=== PATIENT | male | born 1955 | race Caucasian/White ===

== ENCOUNTER → 2018-04-12 08:14 | Outpatient (CLI) | payer BC, SELFPAY ==
--- NOTE | 2018-04-12 08:25 | RAD_ITS ---
PROCEDURE: Fluoroscopic guided Hip Injection DATE: April 12, 2018. INDICATION: Male, 63 years old. Chronic hip pain. PHYSICIAN: Julius Cadet M.D. MEDICATIONS: 40 mg of Depomedrol, 3 cc of 1% lidocaine. 2% lidocaine administered subcutaneously for local anesthesia. ACCESS SITE: Right hip. NEEDLE: 22-gauge spinal needle. FLUOROSCOPY TIME (if supplied): (0:28) minutes/seconds FINDINGS: The risks, benefits, and alternatives to the procedure were explained to the patient. The specific risks of bleeding, infection, and neurovascular injury were detailed and accepted. Witnessed informed consent was obtained. A 22-gauge spinal needle was positioned under radiographic fluoroscopic localization. Approximately 2 cc of Isovue-300 instilled for localization purposes. Medication was then injected. The patient tolerated the procedure well without any immediate complications. The patient was placed supine with head elevated and returned to the floor in stable condition. RAD/Inj/Asp Sudhakar Jt Should/Hip/Knee IMPRESSION: 1. Successful fluoroscopic guided hip injection. Electronically Signed: Julius Cadet MD at 9:43 EST Tel [phone], Service support ,
--- OUTSIDE RECORDS SUMMARY | 2018-06-14 02:54 | XMS RPT_ITS ---
:1955 Author Organization OHIP Care Team Providers Name Role Phone Brandon Bradley Attending Unavailable Brandon Bradley Referring Unavailable Jose Back Primary Care Unavailable Lauren Peacock Consulting Unavailable Lauren PEACOCK (PA-C) Attending Unavailable Lauren PEACOCK (PA-C) Referring Unavailable Lauren PEACOCK (PA-C) Attending Unavailable Lauren PEACOCK (PA-C) Referring Unavailable Lauren PEACOCK (PA-C) Attending Unavailable Lauren PEACOCK (PA-C) Referring Unavailable VETOVIALEXIA, ANGELA (PA) Attending Unavailable Lauren PEACOCK (PA-C) Referring Unavailable VETOVIALEXIA, ANGELA (PA) Referring Unavailable RICCHETTI, DESTINY T Attending Unavailable VETOVITZ, ANGELA (PA) Referring Unavailable RICCHETTI, DESTINY T Referring Unavailable RICCHETTI, DESTINY T Referring Unavailable Lauren PEACOCK (PA-C) Attending Unavailable Lauren PEACOCK (PA-C) Referring Unavailable RICCHETTI, DESTINY T Referring Unavailable RICCHETTI, DESTINY T Attending Unavailable VETOVITZ, ANGELA (PA) Referring Unavailable RICCHETTI, DESTINY T Referring Unavailable JEWEL GASPAR (PT) Attending Unavailable Lauren PEACOCK (PA-C) Referring Unavailable JEWEL GASPAR (PT) Attending Unavailable Lauren PEACOCK (PA-C) Referring Unavailable JEWEL GASPAR (PT) Attending Unavailable Lauren PEACOCK (PA-C) Referring Unavailable JEWEL GASPAR (PT) Attending Unavailable Lauren PEACOCK (PA-C) Referring Unavailable JEWEL GASPAR (PT) Attending Unavailable Lauren PEACOCK (PA-C) Referring Unavailable DESTINY ALAN T Referring Unavailable DAYANNA DESTINY T Attending Unavailable ANGELA GEORGES (PA) Referring Unavailable Lauren PEACOCK (PA-C) Attending Unavailable Lauren PEACOCK (PA-C) Attending Unavailable Lauren PEACOCK (PA-C) Attending Unavailable Lauren PEACOCK (PA-C) Referring Unavailable Lauren PEACOCK (PA-C) Referring Unavailable Lauren PEACOCK (PA-C) Referring Unavailable BRANDON BRADLEY Attending Unavailable JOSE BACK Referring Unavailable PROBLEMS PROBLEMS DATE TYPE CONDITION / CODE ATTENDING STATUS SOURCE 03/28/2018 Active Low back pain / NA Active [facility] M54.5(ICD-10) [place] Repository 09/01/2017 Active Unspecified injury NA Active [facility] of right shoulder [place] and upper arm, Repository sequela / S49.91XS(ICD-10) 08/22/2017 Active Pyogenic NA Active [facility] arthritis, [place] unspecified / Repository M00.9(ICD-10) 08/22/2017 Active Unknown / Lauren PEACOCK Active [facility] UNK(Unknown) ROSE MARIE (PA-C) [place] Repository 08/19/2017 Active Abnormal findings NA Active [facility] on diagnostic [place] imaging of other Repository specified body structures / R93.8(ICD-10) 08/02/2017 Active Pain in right NA Active [facility] shoulder / [place] M25.511(ICD-10) Repository PROCEDURES PROCEDURES No Procedure Records FoundRESULTS RESULTS INJ/ASP SUDHAKAR JT Observed: 04/12/2018 Status: F Source: [place] SHOULD/HIP/KNEE 7:20 AM [facility] [place] REPOSITORY [facility] Imaging Services [address] [place] [address] Inj/Asp Sudhakar Jt Should/Hip/Knee MR#: [id number] Acct: [id number] Name: GUANACOJUMA Rep #: [id number] : 1955 M 63 From: Julius Cadet MD PCP: Jose Back MD Status: REG CLI Study: Inj/Asp Sudhakar Jt Should/Hip/Knee Date of Exam: 04/12/18 Exam# [id number] Ordering Dr: Brandon Bradley DO PROCEDURE: Fluoroscopic guided Hip Injection DATE: April 12, 2018. INDICATION: Male, 63 years old. Chronic hip pain. PHYSICIAN: Julius Cadet M.D. MEDICATIONS: 40 mg of Depomedrol, 3 cc of 1% lidocaine. 2% lidocaine administered subcutaneously for local anesthesia. ACCESS SITE: Right hip. NEEDLE: 22-gauge spinal needle. FLUOROSCOPY TIME (if supplied): (0:28) minutes/seconds FINDINGS: The risks, benefits, and alternatives to the procedure were explained to the patient. The specific risks of bleeding, infection, and neurovascular injury were detailed and accepted. Witnessed informed consent was obtained. A 22-gauge spinal needle was positioned under radiographic fluoroscopic localization. Approximately 2 cc of Isovue-300 instilled for localization purposes. Medication was then injected. The patient tolerated the procedure well without any immediate complications. The patient was placed supine with head elevated and returned to the floor in stable condition. RAD/Inj/Asp Sudhakar Jt Should/Hip/Knee IMPRESSION: 1. Successful fluoroscopic guided hip injection. Electronically Signed: Julius Cadet MD at 9:43 EST Tel [phone], Service support , CC: Brandon Bradley DO; Jose Back MD Staff Accountant: Signed PROGRESS Observed: 03/31/2018 Status: COMPLETED Source: [place] 12:33 PM [facility] REPOSITORY O ID: [id number] Author: Brandon Bradley V Service: (none) Author Type: Physician Type: Progress Notes Filed: 03/31/2018 1:38 PM Note Text: Jose Back MD [address] [facility] [address] Mr. Blanc is a 63 year old male that presents today complaining of hip problems bilaterally, but acutely on the left side for the last 4 days. He claims that there is no specific incident that brought on this pain. The pain is described as intermittent located in the buttocks and outer aspect of the hip. Patient states that his pain level is a number 6 on a scale of 1-10 Denies low back pain. He states that the pain came on rather suddenly, with no specific provocation, while standing at work. He states that he does not leave it was work related because there was no injury. He has been taking a Medrol Dosepak and hydrocodone for pain relief and states that he has seen some improvement overall. He continues to have pain that originates in the backside of the left hip and buttock and seems to radiate to the front of the hip. He complains of chronic right hip pain that he's noticed for several years, states that it is not really changed that much recently. The right hip pain is worse with prolonged standing. ALLERGIES: Patient has no known allergies. MEDICATIONS: Current Outpatient Prescriptions: cyclobenzaprine (FLEXERIL) 10 mg tablet Take 1 tablet by mouth three times daily as needed. HYDROcodone-acetaminophen (NORCO) 5-325 mg per tablet Take 1 tablet by mouth every 6 hours as needed for Pain for up to 7 days. mupirocin (BACTROBAN) 2 % ointment Apply 1 application to affected area three times daily. Location: left foot lesion (Patient not taking: Reported on 03/28/2018 ) ibuprofen (ADVIL) 200 mg tablet Take 200 mg by mouth every 6 hours as needed. No current facility-administered medications for this visit. MEDICAL HISTORY: PAST MEDICAL HISTORY Diagnosis Date - Diverticulosis of colon (without mention of hemorrhage) Diverticulosis - Heartburn - Hydrocele - Internal hemorrhoids with other complication - Other chronic sinusitis - Unspecified hemorrhoids without mention of complication Hemorrhoids SURGICAL HISTORY: PAST SURGICAL HISTORY Procedure Laterality Date - COLONOSCOP W/ OR W/O [facility] SPEC 06/06/2003 Colonoscopy - COLONOSCOP W/ OR W/O [facility] SPEC 09/29/09 - COLONOSCOP W/ OR W/O [facility] SPEC 06/19/2015 Colonoscopy - FIX FLEX TENDON,FING/HAND,SECOND,EA right - HEMORRHOIDECTOMY, EXTNL; COMP - PAST SURGICAL HISTORY OF partial amputation tip right middle toe - PAST SURGICAL HISTORY OF 08/2005 hydrocele left testicle removed also - REPAIR ING HERNIA,5+Y/O,REDUCIBL Hernia repair, inguinal RIGHT ORTHOPEDIC SPECIFIC PROBLEMS: right knee catching since hip pain started FAMILY HISTORY: FAMILY HISTORY Problem Relation Age of Onset - Coronary Artery Disease Mother PR, CABG - other (transient ischemic attack) Mother disoriented transiently - Heart Father 80 stent, CHF SOCIAL HISTORY: Social History Marital status: Spouse name: Justine Years of education: 14 Number of children: 4 Occupational History Occupation Employer Comment [employer] Social History Main Topics Smoking status: Never Smoker Smokeless tobacco: Never Used Alcohol use: Yes Comment: 12 pack beer on weekends Drug use: No Sexual activity: Yes Partners with: Female PHYSICAL ASSESSMENT: The Pt walks with a normal gait B/l LE have Nl Alignment The Left hip reveals no hip flexion contracture, 0-100 degrees of flexion, Internal Rotation to 20 degrees in flexion and external rotation to 45 degrees in flexion. Abduction to 45 degrees and adduction to 20 degrees. There is pain with palpation over the posterior aspect of the greater trochanter and the gluteal region. The Right hip reveals a no hip flexion contracture, 0-100 degrees of flexion, Internal Rotation to 15 degrees in flexion and external rotation to 40 degrees in flexion. Abduction to 40 degrees and adduction to 10 degrees. There is no pain with palpation over the ischial tuberosity or the greater trochanter. Right Knee Reveals No Effusion. 0-135 degrees of motion. No Abnormal Anterior, Posterior, Varus or Valgus Laxity. No Medial or Lateral Joint Line Tenderness. No pain with Direct Palpation over the Distal Medial or Lateral Femoral Condyles. Negative Pati's Test. No pain with Patellar compression. The Left Knee Reveals No Effusion. 0-135 degrees of motion. No Abnormal Anterior, Posterior, Varus or Valgus Laxity. No Medial or Lateral Joint Line Tenderness. No pain with Direct Palpation over the Distal Medial or Lateral Femoral Condyles. Negative Pati's Test. There is no pain with patellar compression. EHL 5/5 DF 5/5 PF 5/5 DP Pulses 2/2 PT Pulses 2/2 RADIOGRAPH: Right side: Marked narrowing of the RIGHT hip joint. ?This has progressed since previous study. ?There is marginal spurring around the inferior medial aspect of the hip joint No fractures or dislocations are seen. ? The bone density appears well preserved. Left side: The joint spaces are well-preserved. ?. No fractures or dislocations are seen. ?The bone density appears well preserved ASSESSMENT: right hip OA left posterior hip pain- suspect piriformis strain PLAN: reviewed handout with exercises for hip Physical exam reviewed there are no apparent changes since last visit. Risks, benefits, alternatives and personnel discussed with patient who consents to proceed. Patient wished to proceed. 40 mg kenalog with 2cc, 1% lidocaine and 2cc .5% marcaine was injected. Injection was carried out under sterile conditions through a POSTERIOR site into the gluteus medius tendon insertion. Patient had no immediate complications and tolerated the procedure well. recheck in 1 week if remains symptomatic Discussed referral for fluoroscopic guided injection to right hip should symptoms worsen. Brandon Bradley DO PROGRESS Observed: 03/31/2018 Status: COMPLETED Source: [place] 11:[address] [facility] REPOSITORY HNO ID: [id number] Author: Lauren Quesada Ma Service: (none) Author Type: (none) Type: Progress Notes Filed: 03/31/2018 1:38 PM Note Text: AMB ROOMING INTAKE FLOWSHEET DATA Risk Screening Do you have concerns about personal safety or safety in the home?: No Pain Pain Score: 6/10 Pain Location: Other: See Comment (bilateral hips) Description: Sharp, Dull Duration Amount of Time: 4 Duration Units: Days Intervention: Medication CNOV Observed: 03/31/2018 Status: COMPLETED Source: [place] 11:[address] [facility] REPOSITORY Office Visit (UC) JUMA BLANC ([id number]) 1955 M Date Time Provider Department 03/31/18 11:20 AM BRANDON BRADLEY During your visit today, we recorded the following information about you: Lauren Quesada Ma 03/31/2018 1:38 PM Signed AMB ROOMING INTAKE FLOWSHEET DATA Risk Screening Do you have concerns about personal safety or safety in the home?: No Pain Pain Score: 6/10 Pain Location: Other: See Comment (bilateral hips) Description: Sharp, Dull Duration Amount of Time: 4 Duration Units: Days Intervention: Medication Brandon Bradley, DO 03/31/2018 1:38 PM Signed Jose Back MD [address] [facility] [address] Mr. Blanc is a 63 year old male that presents today complaining of hip problems bilaterally, but acutely on the left side for the last 4 days. He claims that there is no specific incident that brought on this pain. The pain is described as intermittent located in the buttocks and outer aspect of the hip. Patient states that his pain level is a number 6 on a scale of 1-10 Denies low back pain. He states that the pain came on rather suddenly, with no specific provocation, while standing at work. He states that he does not leave it was work related because there was no injury. He has been taking a Medrol Dosepak and hydrocodone for pain relief and states that he has seen some improvement overall. He continues to have pain that originates in the backside of the left hip and buttock and seems to radiate to the front of the hip. He complains of chronic right hip pain that he's noticed for several years, states that it is not really changed that much recently. The right hip pain is worse with prolonged standing. ALLERGIES: Patient has no known allergies. MEDICATIONS: Current Outpatient Prescriptions: cyclobenzaprine (FLEXERIL) 10 mg tablet Take 1 tablet by mouth three times daily as needed. HYDROcodone-acetaminophen (NORCO) 5-325 mg per tablet Take 1 tablet by mouth every 6 hours as needed for Pain for up to 7 days. mupirocin (BACTROBAN) 2 % ointment Apply 1 application to affected area three times daily. Location: left foot lesion (Patient not taking: Reported on 03/28/2018 ) ibuprofen (ADVIL) 200 mg tablet Take 200 mg by mouth every 6 hours as needed. No current facility-administered medications for this visit. MEDICAL HISTORY: PAST MEDICAL HISTORY Diagnosis Date - Diverticulosis of colon (without mention of hemorrhage) Diverticulosis - Heartburn - Hydrocele - Internal hemorrhoids with other complication - Other chronic sinusitis - Unspecified hemorrhoids without mention of complication Hemorrhoids SURGICAL HISTORY: PAST SURGICAL HISTORY Procedure Laterality Date - COLONOSCOP W/ OR W/O [facility] SPEC 06/06/2003 Colonoscopy - COLONOSCOP W/ OR W/O [facility] SPEC 09/29/09 - COLONOSCOP W/ OR W/O [facility] SPEC 06/19/2015 Colonoscopy - FIX FLEX TENDON,FING/HAND,SECOND,EA right - HEMORRHOIDECTOMY, EXTNL; COMP - PAST SURGICAL HISTORY OF partial amputation tip right middle toe - PAST SURGICAL HISTORY OF 08/2005 hydrocele left testicle removed also - REPAIR ING HERNIA,5+Y/O,REDUCIBL Hernia repair, inguinal RIGHT ORTHOPEDIC SPECIFIC PROBLEMS: right knee catching since hip pain started FAMILY HISTORY: FAMILY HISTORY Problem Relation Age of Onset - Coronary Artery Disease Mother PR, CABG - other (transient ischemic attack) Mother disoriented transiently - Heart Father 80 stent, CHF SOCIAL HISTORY: Social History Marital status: Spouse name: Justine Years of education: 14 Number of children: 4 Occupational History Occupation Employer Comment [employer] Social History Main Topics Smoking status: Never Smoker Smokeless tobacco: Never Used Alcohol use: Yes Comment: 12 pack beer on weekends Drug use: No Sexual activity: Yes Partners with: Female PHYSICAL ASSESSMENT: The Pt walks with a normal gait B/l LE have Nl Alignment The Left hip reveals no hip flexion contracture, 0-100 degrees of flexion, Internal Rotation to 20 degrees in flexion and external rotation to 45 degrees in flexion. Abduction to 45 degrees and adduction to 20 degrees. There is pain with palpation over the posterior aspect of the greater trochanter and the gluteal region. The Right hip reveals a no hip flexion contracture, 0-100 degrees of flexion, Internal Rotation to 15 degrees in flexion and external rotation to 40 degrees in flexion. Abduction to 40 degrees and adduction to 10 degrees. There is no pain with palpation over the ischial tuberosity or the greater trochanter. Right Knee Reveals No Effusion. 0-135 degrees of motion. No Abnormal Anterior, Posterior, Varus or Valgus Laxity. No Medial or Lateral Joint Line Tenderness. No pain with Direct Palpation over the Distal Medial or Lateral Femoral Condyles. Negative Pati's Test. No pain with Patellar compression. The Left Knee Reveals No Effusion. 0-135 degrees of motion. No Abnormal Anterior, Posterior, Varus or Valgus Laxity. No Medial or Lateral Joint Line Tenderness. No pain with Direct Palpation over the Distal Medial or Lateral Femoral Condyles. Negative Pati's Test. There is no pain with patellar compression. EHL 5/5 DF 5/5 PF 5/5 DP Pulses 2/2 PT Pulses 2/2 RADIOGRAPH: Right side: Marked narrowing of the RIGHT hip joint. ?This has progressed since previous study. ?There is marginal spurring around the inferior medial aspect of the hip joint No fractures or dislocations are seen. ? The bone density appears well preserved. Left side: The joint spaces are well-preserved. ?. No fractures or dislocations are seen. ?The bone density appears well preserved ASSESSMENT: right hip OA left posterior hip pain- suspect piriformis strain PLAN: reviewed handout with exercises for hip Physical exam reviewed there are no apparent changes since last visit. Risks, benefits, alternatives and personnel discussed with patient who consents to proceed. Patient wished to proceed. 40 mg kenalog with 2cc, 1% lidocaine and 2cc .5% marcaine was injected. Injection was carried out under sterile conditions through a POSTERIOR site into the gluteus medius tendon insertion. Patient had no immediate complications and tolerated the procedure well. recheck in 1 week if remains symptomatic Discussed referral for fluoroscopic guided injection to right hip should symptoms worsen. Brandon Bradley DO Referring Provider: JOSE BACK [[id number]] Allergies As of Date: 03/31/2018 (No Known Allergies) Date Reviewed: 03/31/2018 Reviewed by: Lauren Quesada Ma - Fully Assessed Reason for Visit: New Patient [172] Cmt: Bilateral hip pain Primary Visit Diagnosis:Arthritis of right hip [M16.11] Other Visit Diagnosis:Sprain, gluteus medius, left, initial encounter [S76.012A] Order(s):[] triamcinolone acetonide 40 mg injection (KENALOG 40)Disp: Rfl: Prescriptions as of 03/31/2018 Sig: CYCLOBENZAPRINE 10 MG TABLET Take 1 tablet by mouth three * HYDROCODONE 5 MG-ACETAMINOPHE* Take 1 tablet by mouth every * MUPIROCIN 2 % TOPICAL OINTMENT Apply 1 application to affect* Patient not taking: Reported on 03/28/2018 IBUPROFEN 200 MG TABLET Take 200 mg by mouth every 6 * Problem List As Of Date 03/31/2018 Noted Resolved HYDROCELE [603] INVALID FOR* Medial epicondylitis of elbow [M77.00] INVALID FOR*12/02/2016 Pain in joint, site unspecified [M25.50] INVALID FOR*12/02/2016 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 HEMORRHOIDS NOS [K64.9] More... DIVERTICULOSIS OF COLON W/O BLEED [K57.30] More... Benign prostatic hyperplasia without lower urin*INVALID FOR* Right groin pain [R10.31] INVALID FOR*12/02/2016 Night sweats [R61] INVALID FOR* More... Shoulder pain [M25.519] INVALID FOR*12/02/2016 More... Left cervical radiculopathy [M54.12] INVALID FOR* Muscle spasm of left shoulder area [M62.838] INVALID FOR*12/02/2016 Personal history of colonic polyps [Z86.010] INVALID FOR*06/19/2015 Chronic left-sided low back pain with left-side*INVALID FOR* Acromioclavicular joint injury, right, sequela *INVALID FOR* Prescriptions ordered this encounter Disp Refills Start End TRIAMCINOLONE ACETONIDE 40 MG/ML PAOLA* 03/31/2018 03/31/2018 Route: INTRAMUSCULA Encounter Status:Closed by BRANDON BRADLEY DO, V on 03/31/18 CBC AND DIFFERENTIAL Collected: 03/28/2018 Status: F Source: [place] 3:35 PM [facility] REPOSITORY TYPE CODE TESTS RESULT OUT OF REFERENCE UNITS RANGE LAB WBC 3.70-11.00 k/uL WBC 9.14 LAB RBC 4.20-6.00 m/uL RBC 5.34 LAB HGB 13.0-17.0 g/dL Hemoglobin 16.5 LAB HCT 39.0-51.0 % Hematocrit 49.3 LAB MCV 80.0-100.0 fL MCV 92.3 LAB MCH 26.0-34.0 pG MCH 30.9 LAB MCHC 30.5-36.0 g/dL MCHC 33.5 LAB RDWCV 11.5-15.0 % RDW-CV 12.6 LAB PLTCT 150-400 k/uL Platelet Count 152 LAB MPV 9.0-12.7 fL MPV 11.2 LAB ANEUT % Neut% 85.2 LAB AANEUT 1.45-7.50 k/uL Abs Neut High 7.79 LAB ALYMP % Lymph% 10.3 LAB AALYMP 1.00-4.00 k/uL Low Abs Lymph 0.94 LAB AMONO % [place]% 4.3 LAB AAMONO <0.87 k/uL Abs [place] 0.39 LAB AEOS % Eosin% 0.1 LAB AAEOS <0.46 k/uL Abs Eosin <0.03 LAB ABASO % Baso% 0.1 LAB AABASO <0.11 k/uL Abs Baso <0.03 LAB AUNRBC 0 /100 WBC NRBCs 0.0 LAB ABNRBC <0.01 k/uL Absolute nRBC <0.01 LAB DTYP DTYPE Auto Diff Performed By: #### CBCDIF, WSR, BMP, CRP #### [facility] [address], [place] [address] SED RATE WESTERGREN Collected: 03/28/2018 Status: F Source: [place] 3:[address] [facility] REPOSITORY TYPE CODE TESTS RESULT OUT OF REFERENCE UNITS RANGE LAB WSR 0-15 mm/hr Sed Rate Westergren 2 Performed By: #### CBCDIF, WSR, BMP, CRP #### [facility] [address], [place] [address] BASIC METABOLIC PANL Collected: 03/28/2018 Status: F Source: [place] 3:[address] [facility] REPOSITORY TYPE CODE TESTS RESULT OUT OF REFERENCE UNITS RANGE LAB GLU 74-99 mg/dL Glucose 89 Result Comment: The [place] [employer] (ADA) provides guidance for cutoff values for fasting glucose and random glucose. The ADA defines fasting as no caloric intake for at least 8 hours. Fas ting plasma glucose results between 100 to 125 mg/dL indicate increased risk for diabetes (prediabetes). Fasting plasma glucose results greater than or equal to 126 mg/dL meet the criteria for diagnosis of diabetes. In the absence of unequivocal hyperglycemia, results should be confirmed by repeat testing. In a patient with classic symptoms of hyperglycemia or hyperglycemic crisis, random plasma glucose results greater than or equal to 200 mg/dL meet the criteria for diagnosis of diabetes. Reference: Standards of Medical Care in Diabetes 2016, [place] [employer]. Diabetes Care. 2016.39(Suppl 1). LAB BUN 9-24 mg/dL BUN 15 LAB CRET 0.73-1.22 mg/dL Creatinine 0.78 LAB NA 136-144 mmol/L Sodium 137 LAB K 3.7-5.1 mmol/L Potassium 4.2 LAB CL 97-105 mmol/L Chloride 100 LAB CO2 22-30 mmol/L CO2 24 LAB AGAP 9-18 mmol/L Anion Gap 13 LAB CA 8.5-10.2 mg/dL Calcium, Total 9.5 LAB GFRAA eGFR- Amer. >60 LAB GFRNAA . eGFR-All Other Races >60 Result Comment: eGFR (Estimated GFR) Units of measure: mL/min/1.73 meters squared eGFR is derived from the reexpressed MDRD Study equation using the following parameters: serum creatinine, age, gender and race. The creatinine assay has been calibrated to be traceable to IDMS. An eGFR <60 mL/min/1.73m2 for >3 months is consistent with chronic kidney disease. Refer to KDOQI guidelines for clinical interpretation. In patients with unstable renal function, e.g. those with acute kidney injury, the eGFR may not accurately reflect actual GFR. Performed By: #### CBCDIF, WSR, BMP, CRP #### [facility] [address] [place], [place] [address] C-REACTIVE PROTEIN Collected: 03/28/2018 Status: F Source: [place] 3:[address] [facility] REPOSITORY TYPE CODE TESTS RESULT OUT OF REFERENCE UNITS RANGE LAB CRP <0.9 mg/dL C-Reactive 0.1 Protein Performed By: #### CBCDIF, WSR, BMP, CRP #### [facility] [address] [place], [place] [address] XR HIP [place] 5V PEL+ Observed: 03/28/2018 Status: F Source: [place] AP/LAT EA HIP 3:[address] [facility] REPOSITORY * * *Final Report* * * DATE OF EXAM: Mar 28 2018 3:29PM WOX [id number] - XR HIP [place] 5V PEL+ AP/LAT EA HIP / PROCEDURE REASON: Acute bilateral low back pain without sciatica * * * * Physician Interpretation * * * * Bilateral hips: HISTORY: Indication:Bilateral hip pain TECHNIQUE: Views obtained include: XR HIP [place] 5V PEL+ AP/LAT EA HIP Comparison: 03/30/2016 RESULT: Findings: Right side: Marked narrowing of the RIGHT hip joint. This has progressed since previous study. There is marginal spurring around the inferior medial aspect of the hip joint No fractures or dislocations are seen. The bone density appears well preserved. Left side: The joint spaces are well-preserved. . No fractures or dislocations are seen. The bone density appears well preserved. IMPRESSION: Findings as discussed under Results portion of report. Staff Accountant: PSCB Transcribe Date/Time: Mar 28 2018 3:54P Dictated by : SRI TRACY DO This examination was interpreted and the report reviewed and electronically signed by: SRI TRACY DO on Mar 28 2018 3:55PM EST [id number] PROGRESS Observed: 03/28/2018 Status: COMPLETED Source: [place] 3:[address] [facility] REPOSITORY HNO ID: [id number] Author: Nata HendersonRt) Shawna Barakat Service: (none) Author Type: Change Room Attendant Type: Progress Notes Filed: 03/28/2018 3:29 PM Note Text: Radiology Service Progress Note PATIENT NAME: Juma Blanc DATE OF SERVICE: March 28, 2018 TIME: 3:17 PM PATIENT IDENTITY VERIFICATION COMPLETED USING TWO (2) METHODS: Patient confirmed name verbally and Date of . PATIENT GENDER DATA: Male PATIENT RELEVANT IMPLANT DATA REVIEWED: Not Applicable RADIOLOGY DEPARTMENT: General X-ray: Exam(s) Completed: Pelvis X-Ray: Pelvis with Hip Bilateral PERIPHERAL IV DATA: Not applicable SIGNED BY: RT Felton March 28, 2018 3:17 PM PROGRESS Observed: 03/28/2018 Status: COMPLETED Source: [place] 2:[address] [facility] REPOSITORY HNO ID: [id number] Author: Lauren Peacock Service: (none) Author Type: Physician Tree Surgeon Helper Type: Progress Notes Filed: 03/28/2018 4:35 PM Note Text: 63 year old male with c/o left hip pain. 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 Pain came on 2 days alter. Sudden pain at work. [place] nauseous. Sweaty. Pain in left gluteal. Unable to sleep last night. Sharp pain. Couldn't lay down. Nauseated But hasn't vomited. Advil 600mg gels twice a day. Medrol didn't make much difference on right. Still feel like not fully resolved. HISTORIES FAMILY HISTORY Problem Relation Age of Onset - Coronary Artery Disease Mother PR, CABG - other (transient ischemic attack) Mother disoriented transiently - Heart Father 80 stent, CHF PAST MEDICAL HISTORY Diagnosis Date - Diverticulosis of colon (without mention of hemorrhage) Diverticulosis - Heartburn - Hydrocele - Internal hemorrhoids with other complication - Other chronic sinusitis - Unspecified hemorrhoids without mention of complication Hemorrhoids PAST SURGICAL HISTORY Procedure Laterality Date - COLONOSCOP W/ OR W/O [facility] SPEC 06/06/2003 Colonoscopy - COLONOSCOP W/ OR W/O [facility] SPEC 09/29/09 - COLONOSCOP W/ OR W/O [facility] SPEC 06/19/2015 Colonoscopy - FIX FLEX TENDON,FING/HAND,SECOND,EA right - HEMORRHOIDECTOMY, EXTNL; COMP - PAST SURGICAL HISTORY OF partial amputation tip right middle toe - PAST SURGICAL HISTORY OF 08/2005 hydrocele left testicle removed also - REPAIR ING HERNIA,5+Y/O,REDUCIBL Hernia repair, inguinal RIGHT Social History Marital status: Spouse name: Justine Years of education: 14 Number of children: 4 Occupational History Occupation Employer Comment [employer] Social History Main Topics Smoking status: Never Smoker Smokeless tobacco: Never Used Alcohol use: Yes Comment: 12 pack beer on weekends Drug use: No Sexual activity: Yes Partners with: Female ACTIVE PROBLEM LIST Hydrocele Malignant Neoplasm of Spermatic Cord (Hcc) Unspecified Hemorrhoids Without Mention of Complication Diverticulosis of Colon (Without Mention of Hemorrhage) Benign Prostatic Hyperplasia Without Lower Urinary Tract Symptoms Night Sweats Left Cervical Radiculopathy Chronic Left-Sided Low Back Pain With Left-Sided Sciatica Acromioclavicular Joint Injury, Right, Sequela Current Outpatient Prescriptions: meloxicam (MOBIC) 15 mg tablet TAKE 1 TABLET BY MOUTH ONCE DAILY. WITH FOOD. Disp: 90 tablet Rfl: 0 ibuprofen (ADVIL) 200 mg tablet Take 200 mg by mouth every 6 hours as needed. Disp: Rfl: mupirocin (BACTROBAN) 2 % ointment Apply 1 application to affected area three times daily. Location: left foot lesion (Patient not taking: Reported on 03/28/2018 ) Disp: 15 g Rfl: 1 No current facility-administered medications for this visit. PROSTATE CANCER SCREENING DISCUSSION due on 05/20/2013 EXAM: BP 132/88 Pulse 76 Temp 36.9 ?C (98.4 ?F) (Tympanic) Resp 16 Wt 93 kg (205 lb) BMI 26.68 kg/m? Pleasant adult man in no acute distress. Alert and oriented all spheres. Normal affect and cognition. Speech normal. No deficits to learning or comprehension. Skin warm, dry, pink to lips and nailbeds. Normal turgor. Respirations regular and unlabored. Back without scoliosis. Tender spasm in left lumbar. Gait remains off slightly. Has slight persistent limp on right leg. Extrem: no clubbing, cyanosis, edema. Extremities are warm and pink with prompt capillary refill. SLR bilateral to 90 degrees with out pain. Femoral stretch negative bilaterally.No pain with internal external rotation hips. Motor is full to resistance hip flexion, abduction, adduction, knee extension/ flexion, plantar flexion/ dorsiflexion, great toe extension OMT: myofascial release to TTPs , muscle energy techniques with some improvement but intermittent persistent pain. ASSESSMENT/PLAN: 1. Acute bilateral low back pain without sciatica - ICD9: 724.2, 338.19, ICD10: M54.5 Symptoms consistent with herniated disc. Feels pain severe. asking for something stronger for pain. Unable to rest. Non-narcotic meds not helping. Advised limited use only with narcotics and warned of side effects. - Bedrest for 2-3 days - Ice for localized tenderness - Xrays- see orders - Patient given instructions intermittent rest and back care exercise program - XR LUMBAR GENERAL 3V AP/LAT/L5-S1 - CBC + DIFF - SED RATE WESTERGREN - C-REACTIVE PROTEIN (CRP) - BASIC METABOLIC PNL - XR HIP BILAT 5V PEL/AP/LAT EACH HIP - HYDROCODONE 5 MG-ACETAMINOPHEN 325 MG TABLET ROMERO SpearsOV Observed: 03/28/2018 Status: COMPLETED Source: [place] 2:[address] [facility] REPOSITORY [facility] JUMA BALNC ([id number]) 1955 M Date Time Provider Department 03/28/18 2:00 PM Lauren PEACOCK) ERIKA During your visit today, we recorded the following information about you: Temperature Pulse Respiration Blood pressure 98.4 degrees 76/minute 16/minute 132/88 Weight 93 kg M Rose Marie Peacock PA-C 03/28/2018 4:35 PM Signed 63 year old male with c/o left hip pain. 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 Pain came on 2 days alter. Sudden pain at work. [place] nauseous. Sweaty. Pain in left gluteal. Unable to sleep last night. Sharp pain. Couldn't lay down. Nauseated But hasn't vomited. Advil 600mg gels twice a day. Medrol didn't make much difference on right. Still feel like not fully resolved. HISTORIES FAMILY HISTORY Problem Relation Age of Onset - Coronary Artery Disease Mother PR, CABG - other (transient ischemic attack) Mother disoriented transiently - Heart Father 80 stent, CHF PAST MEDICAL HISTORY Diagnosis Date - Diverticulosis of colon (without mention of hemorrhage) Diverticulosis - Heartburn - Hydrocele - Internal hemorrhoids with other complication - Other chronic sinusitis - Unspecified hemorrhoids without mention of complication Hemorrhoids PAST SURGICAL HISTORY Procedure Laterality Date - COLONOSCOP W/ OR W/O [facility] SPEC 06/06/2003 Colonoscopy - COLONOSCOP W/ OR W/O [facility] SPEC 09/29/09 - COLONOSCOP W/ OR W/O [facility] SPEC 06/19/2015 Colonoscopy - FIX FLEX TENDON,FING/HAND,SECOND,EA right - HEMORRHOIDECTOMY, EXTNL; COMP - PAST SURGICAL HISTORY OF partial amputation tip right middle toe - PAST SURGICAL HISTORY OF 08/2005 hydrocele left testicle removed also - REPAIR ING HERNIA,5+Y/O,REDUCIBL Hernia repair, inguinal RIGHT Social History Marital status: Spouse name: Justine Years of education: 14 Number of children: 4 Occupational History Occupation Employer Comment [employer] Social History Main Topics Smoking status: Never Smoker Smokeless tobacco: Never Used Alcohol use: Yes Comment: 12 pack beer on weekends Drug use: No Sexual activity: Yes Partners with: Female ACTIVE PROBLEM LIST Hydrocele Malignant Neoplasm of Spermatic Cord (Hcc) Unspecified Hemorrhoids Without Mention of Complication Diverticulosis of Colon (Without Mention of Hemorrhage) Benign Prostatic Hyperplasia Without Lower Urinary Tract Symptoms Night Sweats Left Cervical Radiculopathy Chronic Left-Sided Low Back Pain With Left-Sided Sciatica Acromioclavicular Joint Injury, Right, Sequela Current Outpatient Prescriptions: meloxicam (MOBIC) 15 mg tablet TAKE 1 TABLET BY MOUTH ONCE DAILY. WITH FOOD. Disp: 90 tablet Rfl: 0 ibuprofen (ADVIL) 200 mg tablet Take 200 mg by mouth every 6 hours as needed. Disp: Rfl: mupirocin (BACTROBAN) 2 % ointment Apply 1 application to affected area three times daily. Location: left foot lesion (Patient not taking: Reported on 03/28/2018 ) Disp: 15 g Rfl: 1 No current facility-administered medications for this visit. PROSTATE CANCER SCREENING DISCUSSION due on 05/20/2013 EXAM: BP 132/88 Pulse 76 Temp 36.9 ?C (98.4 ?F) (Tympanic) Resp 16 Wt 93 kg (205 lb) BMI 26.68 kg/m? Pleasant adult man in no acute distress. Alert and oriented all spheres. Normal affect and cognition. Speech normal. No deficits to learning or comprehension. Skin warm, dry, pink to lips and nailbeds. Normal turgor. Respirations regular and unlabored. Back without scoliosis. Tender spasm in left lumbar. Gait remains off slightly. Has slight persistent limp on right leg. Extrem: no clubbing, cyanosis, edema. Extremities are warm and pink with prompt capillary refill. SLR bilateral to 90 degrees with out pain. Femoral stretch negative bilaterally.No pain with internal external rotation hips. Motor is full to resistance hip flexion, abduction, adduction, knee extension/ flexion, plantar flexion/ dorsiflexion, great toe extension OMT: myofascial release to TTPs , muscle energy techniques with some improvement but intermittent persistent pain. ASSESSMENT/PLAN: 1. Acute bilateral low back pain without sciatica - ICD9: 724.2, 338.19, ICD10: M54.5 Symptoms consistent with herniated disc. Feels pain severe. asking for something stronger for pain. Unable to rest. Non-narcotic meds not helping. Advised limited use only with narcotics and warned of side effects. - Bedrest for 2-3 days - Ice for localized tenderness - Xrays- see orders - Patient given instructions intermittent rest and back care exercise program - XR LUMBAR GENERAL 3V AP/LAT/L5-S1 - CBC + DIFF - SED RATE WESTERGREN - C-REACTIVE PROTEIN (CRP) - BASIC METABOLIC PNL - XR HIP BILAT 5V PEL/AP/LAT EACH HIP - HYDROCODONE 5 MG-ACETAMINOPHEN 325 MG TABLET M Rose Marie Peacock PA-C Referring Provider: SELF [200] Allergies As of Date: 03/28/2018 (No Known Allergies) Date Reviewed: 03/28/2018 Reviewed by: June Kay LPN - Fully Assessed Reason for Visit: Left Hip Pain [1555] Cmt: started yesterday while at work, no known injury Primary Visit Diagnosis:Acute bilateral low back pain without sciatica [M54.5] Order(s):XR LUMBAR GENERAL 3V AP/LAT/L5-S1 [0560600] Order #: [id number] FUTURE CBC + DIFF [SQCBCDIF] Order #: [id number] FUTURE cyclobenzaprine (FLEXERIL) 10 mg tabletTake 1 tablet by mouth three times daily as needed.Disp: 30 tabletRfl: 0 SED RATE WESTERGREN [SQWSR] Order #: [id number] FUTURE C-REACTIVE PROTEIN (CRP) [SQCRP] Order #: [id number] FUTURE BASIC METABOLIC PNL [SQBMP] Order #: [id number] FUTURE XR HIP BILAT 5V PEL/AP/LAT EACH HIP [[id number]] Order #: [id number] FUTURE HYDROcodone-acetaminophen (NORCO) 5-325 mg per tabletTake 1 tablet by mouth every 6 hours as needed for Pain for up to 7 days.Disp: 28 tabletRfl: 0 Prescriptions as of 03/28/2018 Sig: IBUPROFEN 200 MG TABLET Take 200 mg by mouth every 6 * CYCLOBENZAPRINE 10 MG TABLET Take 1 tablet by mouth three * HYDROCODONE 5 MG-ACETAMINOPHE* Take 1 tablet by mouth every * MUPIROCIN 2 % TOPICAL OINTMENT Apply 1 application to affect* Patient not taking: Reported on 03/28/2018 Problem List As Of Date 03/28/2018 Noted Resolved HYDROCELE [603] INVALID FOR* Medial epicondylitis of elbow [M77.00] INVALID FOR*12/02/2016 Pain in joint, site unspecified [M25.50] INVALID FOR*12/02/2016 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 HEMORRHOIDS NOS [K64.9] More... DIVERTICULOSIS OF COLON W/O BLEED [K57.30] More... Benign prostatic hyperplasia without lower urin*INVALID FOR* Right groin pain [R10.31] INVALID FOR*12/02/2016 Night sweats [R61] INVALID FOR* More... Shoulder pain [M25.519] INVALID FOR*12/02/2016 More... Left cervical radiculopathy [M54.12] INVALID FOR* Muscle spasm of left shoulder area [M62.838] INVALID FOR*12/02/2016 Personal history of colonic polyps [Z86.010] INVALID FOR*06/19/2015 Chronic left-sided low back pain with left-side*INVALID FOR* Acromioclavicular joint injury, right, sequela *INVALID FOR* Prescriptions ordered this encounter Disp Refills Start End CYCLOBENZAPRINE 10 MG TABLET 30 t* 0 03/28/2018 Route: ORAL Sig: Take 1 tablet by mouth three times daily as needed. HYDROCODONE 5 MG-ACETAMINOPHEN 325 M* 28 t* 0 03/28/2018 04/04/2018 Class: Print RX Route: ORAL Sig: Take 1 tablet by mouth every 6 hours as needed for Pain for up to 7 days. Medications Discontinued During This Encounter meloxicam (MOBIC) 15 mg tablet 90 t* 0 02/08/2018 03/28/2018 Sig: TAKE 1 TABLET BY MOUTH ONCE DAILY. WITH FOOD. Disc: Reason for discontinue is not on file. Letter Text [facility] [address], [place] [address] Juma Blanc [address] [address] Clinic #: [id number] 03/28/2018 To Whom it may concern, Juma Blanc was examined here for an acute medical condition. Please excuse him from work missed 03/27-04/02/18. May return without restrictions 04/03/18 Thank you, Milvia Peacock PA-C Encounter Status:Closed by Lauren PEACOCK PA-C on 03/28/18 PROGRESS Observed: 03/07/2018 Status: COMPLETED Source: [place] 10:39 AM [facility] REPOSITORY O ID: [id number] Author: Lauren Mcghee (Romero) Ayush Service: (none) Author Type: Physician Tree Surgeon Helper Type: Progress Notes Filed: 03/07/2018 12:47 PM Note Text: 63 year old male with c/o 1. Area on top of left foot over last month: 3/4in wide a most, dark red/ purple color. Very tender at first. Used Neosporin. Used a needle an poked with drainage of fair amount bloody to watery. No streaks. No fever or chills. Thinks may have been a spider in shoe but didn't see one. Thought over tightened shoe laces. No pain currently. Still purplish color with some mild fluid under skin. Worried about toxins from spider bite. 2. Right hip and groin pain over last 3-4 radiating medial thigh to knee. Causing to limp. Went to chiropractor who jerked on foot. No difference. Took Advil 600mg twice a day with some improvement. HISTORIES FAMILY HISTORY Problem Relation Age of Onset - Coronary Artery Disease Mother PR, CABG - other (transient ischemic attack) Mother disoriented transiently - Heart Father 80 stent, CHF PAST MEDICAL HISTORY Diagnosis Date - Diverticulosis of colon (without mention of hemorrhage) Diverticulosis - Heartburn - Hydrocele - Internal hemorrhoids with other complication - Other chronic sinusitis - Unspecified hemorrhoids without mention of complication Hemorrhoids PAST SURGICAL HISTORY Procedure Laterality Date - COLONOSCOP W/ OR W/O [facility] SPEC 06/06/2003 Colonoscopy - COLONOSCOP W/ OR W/O [facility] SPEC 09/29/09 - COLONOSCOP W/ OR W/O [facility] SPEC 06/19/2015 Colonoscopy - FIX FLEX TENDON,FING/HAND,SECOND,EA right - HEMORRHOIDECTOMY, EXTNL; COMP - PAST SURGICAL HISTORY OF partial amputation tip right middle toe - PAST SURGICAL HISTORY OF 08/2005 hydrocele left testicle removed also - REPAIR ING HERNIA,5+Y/O,REDUCIBL Hernia repair, inguinal RIGHT Social History Marital status: Spouse name: Justine Years of education: 14 Number of children: 4 Occupational History Occupation Employer Comment [employer] Social History Main Topics Smoking status: Never Smoker Smokeless tobacco: Never Used Alcohol use: Yes Comment: 12 pack beer on weekends Drug use: No Sexual activity: Yes Partners with: Female ACTIVE PROBLEM LIST Hydrocele Malignant Neoplasm of Spermatic Cord (Hcc) Unspecified Hemorrhoids Without Mention of Complication Diverticulosis of Colon (Without Mention of Hemorrhage) Benign Prostatic Hyperplasia Without Lower Urinary Tract Symptoms Night Sweats Left Cervical Radiculopathy Chronic Left-Sided Low Back Pain With Left-Sided Sciatica Acromioclavicular Joint Injury, Right, Sequela Current Outpatient Prescriptions: ibuprofen (ADVIL) 200 mg tablet Take 200 mg by mouth every 6 hours as needed. Disp: Rfl: meloxicam (MOBIC) 15 mg tablet TAKE 1 TABLET BY MOUTH ONCE DAILY. WITH FOOD. Disp: 90 tablet Rfl: 0 mupirocin (BACTROBAN) 2 % ointment Apply 1 application to affected area three times daily. Location: left foot lesion Disp: 15 g Rfl: 1 No current facility-administered medications for this visit. PROSTATE CANCER SCREENING DISCUSSION due on 05/20/2013 EXAM: BP 106/80 (BP Site: Left Arm, BP Position: Sitting, BP Cuff Size: Large Adult) Pulse (!) 58 Temp 36.4 ?C (97.5 ?F) (Tympanic) Resp 16 Wt 93.4 kg (206 lb) BMI 26.81 kg/m? Pleasant adult man in no acute distress. Alert and oriented all spheres. Normal affect and cognition. Speech normal. No deficits to learning or comprehension. Skin warm, dry, pink to lips and nailbeds. Normal turgor. Respirations regular and unlabored. Chest CTA. HRRR without murmur or gallop. Right lumbar with paravertebral spasm. restricted right SIJ. Pain with forward flexion back. Walking with assymetric gait, rotating on right. Extrem: no clubbing, cyanosis, edema. Extremities are warm and pink with prompt capillary refill. Right dorsal foot with dime sized purplish area with loose skin as though there were a blister that has drained. No surrounding erythema. No streaks. HVLA: muscle energy, stretching, HVLA to right SIJ with adjustment and improvement. Still stiff somewhat with gait but says much better overall. ASSESSMENT/PLAN: 1. Right groin pain - ICD9: 789.09, ICD10: R10.31 (primary diagnosis) Suspect r/t somatic dysfunction, overuse. Ice/ moist heat, lineaments, OTC analgesics as needed,. Stretching and posture reviewed. - METHYLPREDNISOLONE 4 MG TABLETS IN A DOSE PACK 2. Somatic dysfunction of sacroiliac joint - ICD9: 739.4, ICD10: M99.04 - F/U prn OMT - METHYLPREDNISOLONE 4 MG TABLETS IN A DOSE PACK 3. Left foot infection - ICD9: 686.9, ICD10: L08.9 - Bactroban TID until clear. F/u prn if worse. F/u prn Lauren Peacock PA-C CNOV Observed: 03/07/2018 Status: COMPLETED Source: [place] 10:[address] [facility] REPOSITORY [facility] JUMA BLANC ([id number]) 1955 M Date Time Provider Department 03/07/18 10:20 AM Lauren PEACOCK) ERIKA During your visit today, we recorded the following information about you: Temperature Pulse Respiration Blood pressure 97.5 degrees 58/minute 16/minute 106/80 Weight 93.4 kg Lauren Peacock PA-C 03/07/2018 12:47 PM Signed 63 year old male with c/o 1. Area on top of left foot over last month: 3/4in wide a most, dark red/ purple color. Very tender at first. Used Neosporin. Used a needle an poked with drainage of fair amount bloody to watery. No streaks. No fever or chills. Thinks may have been a spider in shoe but didn't see one. Thought over tightened shoe laces. No pain currently. Still purplish color with some mild fluid under skin. Worried about toxins from spider bite. 2. Right hip and groin pain over last 3-4 radiating medial thigh to knee. Causing to limp. Went to chiropractor who jerked on foot. No difference. Took Advil 600mg twice a day with some improvement. HISTORIES FAMILY HISTORY Problem Relation Age of Onset - Coronary Artery Disease Mother PR, CABG - other (transient ischemic attack) Mother disoriented transiently - Heart Father 80 stent, CHF PAST MEDICAL HISTORY Diagnosis Date - Diverticulosis of colon (without mention of hemorrhage) Diverticulosis - Heartburn - Hydrocele - Internal hemorrhoids with other complication - Other chronic sinusitis - Unspecified hemorrhoids without mention of complication Hemorrhoids PAST SURGICAL HISTORY Procedure Laterality Date - COLONOSCOP W/ OR W/O [facility] SPEC 06/06/2003 Colonoscopy - COLONOSCOP W/ OR W/O [facility] SPEC 09/29/09 - COLONOSCOP W/ OR W/O [facility] SPEC 06/19/2015 Colonoscopy - FIX FLEX TENDON,FING/HAND,SECOND,EA right - HEMORRHOIDECTOMY, EXTNL; COMP - PAST SURGICAL HISTORY OF partial amputation tip right middle toe - PAST SURGICAL HISTORY OF 08/2005 hydrocele left testicle removed also - REPAIR ING HERNIA,5+Y/O,REDUCIBL Hernia repair, inguinal RIGHT Social History Marital status: Spouse name: Justine Years of education: 14 Number of children: 4 Occupational History Occupation Employer Comment [employer] Social History Main Topics Smoking status: Never Smoker Smokeless tobacco: Never Used Alcohol use: Yes Comment: 12 pack beer on weekends Drug use: No Sexual activity: Yes Partners with: Female ACTIVE PROBLEM LIST Hydrocele Malignant Neoplasm of Spermatic Cord (Hcc) Unspecified Hemorrhoids Without Mention of Complication Diverticulosis of Colon (Without Mention of Hemorrhage) Benign Prostatic Hyperplasia Without Lower Urinary Tract Symptoms Night Sweats Left Cervical Radiculopathy Chronic Left-Sided Low Back Pain With Left-Sided Sciatica Acromioclavicular Joint Injury, Right, Sequela Current Outpatient Prescriptions: ibuprofen (ADVIL) 200 mg tablet Take 200 mg by mouth every 6 hours as needed. Disp: Rfl: meloxicam (MOBIC) 15 mg tablet TAKE 1 TABLET BY MOUTH ONCE DAILY. WITH FOOD. Disp: 90 tablet Rfl: 0 mupirocin (BACTROBAN) 2 % ointment Apply 1 application to affected area three times daily. Location: left foot lesion Disp: 15 g Rfl: 1 No current facility-administered medications for this visit. PROSTATE CANCER SCREENING DISCUSSION due on 05/20/2013 EXAM: BP 106/80 (BP Site: Left Arm, BP Position: Sitting, BP Cuff Size: Large Adult) Pulse (!) 58 Temp 36.4 ?C (97.5 ?F) (Tympanic) Resp 16 Wt 93.4 kg (206 lb) BMI 26.81 kg/m? Pleasant adult man in no acute distress. Alert and oriented all spheres. Normal affect and cognition. Speech normal. No deficits to learning or comprehension. Skin warm, dry, pink to lips and nailbeds. Normal turgor. Respirations regular and unlabored. Chest CTA. HRRR without murmur or gallop. Right lumbar with paravertebral spasm. restricted right SIJ. Pain with forward flexion back. Walking with assymetric gait, rotating on right. Extrem: no clubbing, cyanosis, edema. Extremities are warm and pink with prompt capillary refill. Right dorsal foot with dime sized purplish area with loose skin as though there were a blister that has drained. No surrounding erythema. No streaks. HVLA: muscle energy, stretching, HVLA to right SIJ with adjustment and improvement. Still stiff somewhat with gait but says much better overall. ASSESSMENT/PLAN: 1. Right groin pain - ICD9: 789.09, ICD10: R10.31 (primary diagnosis) Suspect r/t somatic dysfunction, overuse. Ice/ moist heat, lineaments, OTC analgesics as needed,. Stretching and posture reviewed. - METHYLPREDNISOLONE 4 MG TABLETS IN A DOSE PACK 2. Somatic dysfunction of sacroiliac joint - ICD9: 739.4, ICD10: M99.04 - F/U prn OMT - METHYLPREDNISOLONE 4 MG TABLETS IN A DOSE PACK 3. Left foot infection - ICD9: 686.9, ICD10: L08.9 - Bactroban TID until clear. F/u prn if worse. F/u prn Lauren Peacock PA-C Rose Marie Peacock PA-C 03/07/2018 11:15 AM Addendum Try to avoid activities which increase pain. Position for comfort with pillows under or between legs to decrease stress on low back and hip when in bed. Sleeping conditions are very important to back health. You need to sleep on a surface that supports your hips in a neutral position. Sagging in the hip or shoulder areas will contribute to muscle irritation. Using a low footstool when sitting upright may also reduce low back pain. Try to arrange seating to allow support in the area where your back curves, especially while watching TV or playing video games. Sitting or standing with a hunched posture will cause or aggravate muscle pain in the neck and low back. Ice or moist heat or both may help with pain and stiffness. Apply for 10-15min as needed. Gokul Little spine handout given and reviewed. Muscle energy techniques as shown 30 sec stretch 3-4 reps twice a day. As pain improves may move to additional postural and back strengthening exercises. See internet copy for medial gluteal stretch. Referring Provider: SELF [200] Allergies As of Date: 03/07/2018 (No Known Allergies) Date Reviewed: 03/07/2018 Reviewed by: June Kay LPN - Fully Assessed Reason for Visit: Right Hip Pain [1554] Cmt: down buttock AND right leg X 3 wks Pain (foot) [760] Cmt: sore area on top of left foot, area draining X 3-4 wks Primary Visit Diagnosis:Right groin pain [R10.31] Other Visit Diagnoses:Somatic dysfunction of sacroiliac joint [M99.04] Left foot infection [L08.9] Order(s):mupirocin (BACTROBAN) 2 % ointmentApply 1 application to affected area three times daily. Location: left foot lesionDisp: 15 gRfl: 1 methylPREDNISolone (MEDROL, CORA,) 4 mg Dose-PackFollow dosing instructions, take with food.Disp: 1 PackageRfl: 0 Prescriptions as of 03/07/2018 Sig: IBUPROFEN 200 MG TABLET Take 200 mg by mouth every 6 * MELOXICAM 15 MG TABLET TAKE 1 TABLET BY MOUTH ONCE D* METHYLPREDNISOLONE 4 MG TABLE* Follow dosing instructions, t* MUPIROCIN 2 % TOPICAL OINTMENT Apply 1 application to affect* Problem List As Of Date 03/07/2018 Noted Resolved HYDROCELE [603] INVALID FOR* Medial epicondylitis of elbow [M77.00] INVALID FOR*12/02/2016 Pain in joint, site unspecified [M25.50] INVALID FOR*12/02/2016 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 HEMORRHOIDS NOS [K64.9] More... DIVERTICULOSIS OF COLON W/O BLEED [K57.30] More... Benign prostatic hyperplasia without lower urin*INVALID FOR* Right groin pain [R10.31] INVALID FOR*12/02/2016 Night sweats [R61] INVALID FOR* More... Shoulder pain [M25.519] INVALID FOR*12/02/2016 More... Left cervical radiculopathy [M54.12] INVALID FOR* Muscle spasm of left shoulder area [M62.838] INVALID FOR*12/02/2016 Personal history of colonic polyps [Z86.010] INVALID FOR*06/19/2015 Chronic left-sided low back pain with left-side*INVALID FOR* Acromioclavicular joint injury, right, sequela *INVALID FOR* Other instructions from your clinician: Try to avoid activities which increase pain. Position for comfort with pillows under or between legs to decrease stress on low back and hip when in bed. Sleeping conditions are very important to back health. You need to sleep on a surface that supports your hips in a neutral position. Sagging in the hip or shoulder areas will contribute to muscle irritation. Using a low footstool when sitting upright may also reduce low back pain. Try to arrange seating to allow support in the area where your back curves, especially while watching TV or playing video games. Sitting or standing with a hunched posture will cause or aggravate muscle pain in the neck and low back. Ice or moist heat or both may help with pain and stiffness. Apply for 10-15min as needed. Gokul Little spine handout given and reviewed. Muscle energy techniques as shown 30 sec stretch 3-4 reps twice a day. As pain improves may move to additional postural and back strengthening exercises. See internet copy for medial gluteal stretch. Prescriptions ordered this encounter Disp Refills Start End MUPIROCIN 2 % TOPICAL OINTMENT 15 g 1 03/07/2018 Route: TOPICAL Sig: Apply 1 application to affected area three times daily. Location: left foot lesion METHYLPREDNISOLONE 4 MG TABLETS IN A* 1 Pa* 0 03/07/2018 03/13/2018 Sig: Follow dosing instructions, take with food. Encounter Status:Closed by Lauren PEACOCK PA-C on 03/07/18 PROGRESS Observed: 10/31/2017 Status: COMPLETED Source: [place] 11:13 AM [facility] REPOSITORY HNO ID: [id number] Author: Lauren Mcghee (Romero) Ayush Service: (none) Author Type: Physician Tree Surgeon Helper Type: Progress Notes Filed: 10/31/2017 11:25 AM Note Text: BP 118/80 Pulse 72 Temp 36.7 ?C (98.1 ?F) (Tympanic) Resp 16 Wt 94.3 kg (208 lb) BMI 27.07 kg/m? 62 year old male with c/o here to review return to work. Patient fears he will not be able to handle physical stress of position. Has now been off work for 3 months. Continuing home exercises as instructed in PT. Feels getting back to normal. Very distressed by crepitation in shoulder. HISTORIES FAMILY HISTORY Problem Relation Age of Onset - Coronary Artery Disease Mother PR, CABG - other (transient ischemic attack) Mother disoriented transiently - Heart Father 80 stent, CHF PAST MEDICAL HISTORY Diagnosis Date - Diverticulosis of colon (without mention of hemorrhage) Diverticulosis - Heartburn - Hydrocele - Internal hemorrhoids with other complication - Other chronic sinusitis - Unspecified hemorrhoids without mention of complication Hemorrhoids PAST SURGICAL HISTORY Procedure Laterality Date - COLONOSCOP W/ OR W/O [facility] SPEC 06/06/2003 Colonoscopy - COLONOSCOP W/ OR W/O [facility] SPEC 09/29/09 - COLONOSCOP W/ OR W/O [facility] SPEC 06/19/2015 Colonoscopy - FIX FLEX TENDON,FING/HAND,SECOND,EA right - HEMORRHOIDECTOMY, EXTNL; COMP - PAST SURGICAL HISTORY OF partial amputation tip right middle toe - PAST SURGICAL HISTORY OF 08/2005 hydrocele left testicle removed also - REPAIR ING HERNIA,5+Y/O,REDUCIBL Hernia repair, inguinal RIGHT Social History Marital status: Spouse name: Justine Years of education: 14 Number of children: 4 Occupational History Occupation Employer Comment [employer] Social History Main Topics Smoking status: Never Smoker Smokeless tobacco: Never Used Alcohol use: Yes Comment: 12 pack beer on weekends Drug use: No Sexual activity: Yes Partners with: Female ACTIVE PROBLEM LIST Hydrocele Malignant Neoplasm of Spermatic Cord (Hcc) Unspecified Hemorrhoids Without Mention of Complication Diverticulosis of Colon (Without Mention of Hemorrhage) Benign Prostatic Hyperplasia Without Lower Urinary Tract Symptoms Night Sweats Left Cervical Radiculopathy Chronic Left-Sided Low Back Pain With Left-Sided Sciatica Acromioclavicular Joint Injury, Right, Sequela Current Outpatient Prescriptions: ibuprofen (ADVIL) 200 mg tablet Take 200 mg by mouth every 6 hours as needed. Disp: Rfl: meloxicam (MOBIC) 15 mg tablet TAKE 1 TABLET BY MOUTH ONCE DAILY. WITH FOOD. Disp: 90 tablet Rfl: 0 No current facility-administered medications for this visit. INFLUENZA(1) due on 11/19/2017 EXAM: BP 118/80 Pulse 72 Temp 36.7 ?C (98.1 ?F) (Tympanic) Resp 16 Wt 94.3 kg (208 lb) BMI 27.07 kg/m? Pleasant older adult male in no acute distress. Alert and oriented all spheres. Normal affect and cognition. Speech normal. No deficits to learning or comprehension. Skin warm, dry, pink to lips and nailbeds. Normal turgor. Respirations regular and unlabored. Right shoulder with moderate creptus on circumduction. 0-160-170 degrees on right, nearly equal to left which is full. Hawkin's negative. Drop arm, empty can, scratch, liftoff all normal. No pain with resistance to lateral rotation. Extrem: no clubbing, cyanosis, edema. Extremities are warm and pink with prompt capillary refill. ASSESSMENT/PLAN: 1. Acute pain of right shoulder - ICD9: 719.41, ICD10: M25.511 (primary diagnosis) 2. Acromioclavicular sprain, right, subsequent encounter - ICD9: V58.89, 840.0, ICD10: S43.51XD Has returned to functionally normal capacity from my exam. Patient is very resistant to returning to work. I told him I can not justify additional time off. He will need to return as a trial and discuss his position with employers. See letter. ROMERO Spears Observed: 10/31/2017 Status: COMPLETED Source: [place] 9:[address] [facility] RE[facility]ITORY [facility] JUMA BLANC ([id number]) 1955 M Date Time Provider Department 10/31/17 9:40 AM Lauren PEACOCK (ROMERO) ERIKA During your visit today, we recorded the following information about you: Temperature Pulse Respiration Blood pressure 98.1 degrees 72/minute 16/minute 118/80 Weight 94.3 kg M Rose Marie Peacock PA-C 10/31/2017 11:25 AM Signed BP 118/80 Pulse 72 Temp 36.7 ?C (98.1 ?F) (Tympanic) Resp 16 Wt 94.3 kg (208 lb) BMI 27.07 kg/m? 62 year old male with c/o here to review return to work. Patient fears he will not be able to handle physical stress of position. Has now been off work for 3 months. Continuing home exercises as instructed in PT. Feels getting back to normal. Very distressed by crepitation in shoulder. HISTORIES FAMILY HISTORY Problem Relation Age of Onset - Coronary Artery Disease Mother PR, CABG - other (transient ischemic attack) Mother disoriented transiently - Heart Father 80 stent, CHF PAST MEDICAL HISTORY Diagnosis Date - Diverticulosis of colon (without mention of hemorrhage) Diverticulosis - Heartburn - Hydrocele - Internal hemorrhoids with other complication - Other chronic sinusitis - Unspecified hemorrhoids without mention of complication Hemorrhoids PAST SURGICAL HISTORY Procedure Laterality Date - COLONOSCOP W/ OR W/O [facility] SPEC 06/06/2003 Colonoscopy - COLONOSCOP W/ OR W/O [facility] SPEC 09/29/09 - COLONOSCOP W/ OR W/O [facility] SPEC 06/19/2015 Colonoscopy - FIX FLEX TENDON,FING/HAND,SECOND,EA right - HEMORRHOIDECTOMY, EXTNL; COMP - PAST SURGICAL HISTORY OF partial amputation tip right middle toe - PAST SURGICAL HISTORY OF 08/2005 hydrocele left testicle removed also - REPAIR ING HERNIA,5+Y/O,REDUCIBL Hernia repair, inguinal RIGHT Social History Marital status: Spouse name: Justine Years of education: 14 Number of children: 4 Occupational History Occupation Employer Comment [employer] Social History Main Topics Smoking status: Never Smoker Smokeless tobacco: Never Used Alcohol use: Yes Comment: 12 pack beer on weekends Drug use: No Sexual activity: Yes Partners with: Female ACTIVE PROBLEM LIST Hydrocele Malignant Neoplasm of Spermatic Cord (Hcc) Unspecified Hemorrhoids Without Mention of Complication Diverticulosis of Colon (Without Mention of Hemorrhage) Benign Prostatic Hyperplasia Without Lower Urinary Tract Symptoms Night Sweats Left Cervical Radiculopathy Chronic Left-Sided Low Back Pain With Left-Sided Sciatica Acromioclavicular Joint Injury, Right, Sequela Current Outpatient Prescriptions: ibuprofen (ADVIL) 200 mg tablet Take 200 mg by mouth every 6 hours as needed. Disp: Rfl: meloxicam (MOBIC) 15 mg tablet TAKE 1 TABLET BY MOUTH ONCE DAILY. WITH FOOD. Disp: 90 tablet Rfl: 0 No current facility-administered medications for this visit. INFLUENZA(1) due on 11/19/2017 EXAM: BP 118/80 Pulse 72 Temp 36.7 ?C (98.1 ?F) (Tympanic) Resp 16 Wt 94.3 kg (208 lb) BMI 27.07 kg/m? Pleasant older adult male in no acute distress. Alert and oriented all spheres. Normal affect and cognition. Speech normal. No deficits to learning or comprehension. Skin warm, dry, pink to lips and nailbeds. Normal turgor. Respirations regular and unlabored. Right shoulder with moderate creptus on circumduction. 0-160-170 degrees on right, nearly equal to left which is full. Hawkin's negative. Drop arm, empty can, scratch, liftoff all normal. No pain with resistance to lateral rotation. Extrem: no clubbing, cyanosis, edema. Extremities are warm and pink with prompt capillary refill. ASSESSMENT/PLAN: 1. Acute pain of right shoulder - ICD9: 719.41, ICD10: M25.511 (primary diagnosis) 2. Acromioclavicular sprain, right, subsequent encounter - ICD9: V58.89, 840.0, ICD10: S43.51XD Has returned to functionally normal capacity from my exam. Patient is very resistant to returning to work. I told him I can not justify additional time off. He will need to return as a trial and discuss his position with employers. See letter. Lauren Peacock PA-C Referring Provider: SELF [200] Allergies As of Date: 10/31/2017 (No Known Allergies) Date Reviewed: 10/31/2017 Reviewed by: Darlyn Pierre ECOLOGICAL MODELER - Fully Assessed Reason for Visit: Follow-up Shoulder Pain [1214] Cmt: concerns about going back to work that this may interfer with the progress of the right shoulder and how far along it has come since initial injury Reason For Visit History Recorded Primary Visit Diagnosis:Acute pain of right shoulder [M25.511] Other Visit Diagnosis:Acromioclavicular sprain, right, subsequent encounter [S43.51XD] Prescriptions as of 10/31/2017 Sig: IBUPROFEN 200 MG TABLET Take 200 mg by mouth every 6 * MELOXICAM 15 MG TABLET TAKE 1 TABLET BY MOUTH ONCE D* Problem List As Of Date 10/31/2017 Noted Resolved HYDROCELE [603] INVALID FOR* Medial epicondylitis of elbow [M77.00] INVALID FOR*12/02/2016 Pain in joint, site unspecified [M25.50] INVALID FOR*12/02/2016 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 HEMORRHOIDS NOS [K64.9] More... DIVERTICULOSIS OF COLON W/O BLEED [K57.30] More... Benign prostatic hyperplasia without lower urin*INVALID FOR* Right groin pain [R10.31] INVALID FOR*12/02/2016 Night sweats [R61] INVALID FOR* More... Shoulder pain [M25.519] INVALID FOR*12/02/2016 More... Left cervical radiculopathy [M54.12] INVALID FOR* Muscle spasm of left shoulder area [M62.838] INVALID FOR*12/02/2016 Personal history of colonic polyps [Z86.010] INVALID FOR*06/19/2015 Chronic left-sided low back pain with left-side*INVALID FOR* Acromioclavicular joint injury, right, sequela *INVALID FOR* Letter Text [facility] [address], [place] [address] Juma Blanc [address] [id number] Clinic #: [id number] 10/31/2017 To Whom it may concern, Juma Blanc was examined here for follow up on his right shoulder injury. He seems to be doing well with strength and range of motion. He has anxiety about returning to the physical stress of his position but I think the only way for us to know is a trial with return to work. If possible I think it would be better for him to be in a less physically stressful position. He may return without restrictions. Thank you, Milvia Peacock PA-C Encounter Status:Closed by Lauren PEACOCK PA-C on 10/31/17 PROGRESS Observed: 10/27/2017 Status: COMPLETED Source: [place] 1:54 PM [facility] REPOSITORY HNO ID: [id number] Author: Destiny Alan Service: (none) Author Type: Physician Type: Progress Notes Filed: 10/27/2017 2:07 PM Note Text: [facility] NOTE Department of Orthopaedics Destiny Alan M.D. NAME: Juma Byrd [facility] NO.: [id number] DATE: October 27, 2017 Juma returns for follow-up today for his right shoulder. Overall he is significantly improved since last visit. He has done well with physical therapy and has no pain complaints at this time. ? PHYSICAL EXAMINATION: Physical examination today of the right shoulder shows no atrophy. ?There is no swelling, redness, or ecchymosis over the shoulder, including the acromioclavicular joint. ?There is no deformity. ?Range of motion testing shows:?? ? Passive forward elevation is to 160-170?on the right?with pain, compared to 170?on the left. Active forward elevation is to 160-170 on the right?limited by pain, compared to 170?on the left. Passive external rotation at the side is to 50-60?on the right, compared to 60?on the left. Active internal rotation is to the mid thoracic?levels on the right, compared to the mid thoracic?levels on the left. ? Strength testing of the right rotator cuff shows 5/5 strength with resisted external rotation at the side and 5/5 strength with resisted Karla's maneuver.?There is?no pain with resisted Karla's maneuver. Lag signs are?negative. Belly press testing is negative. There is?no pain with impingement maneuvers. There is minimal?pain?at end-range motion. There is?minimal tenderness to palpation at the?acromioclavicular joint. The right?upper extremity is otherwise grossly neurovascularly intact to testing. ? RADIOGRAPHIC STUDIES: X-rays of the right shoulder taken today are available for review and again show evidence of distal clavicle osteolysis. This does not appear changed from last visit. ? Bloodwork from September 14, 2017 is reviewed and shows a normal ESR and CRP ? 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 PLAN: I discussed treatment with Juma. Overall he is doing very well at this point. He has regained almost all of his range of motion. His x-rays are stable and he has no concern for infection. We discussed arm use as tolerated at this point with continued home exercises as needed. I will otherwise see him back on an as-needed basis. He agrees this plan. If any questions or concerns arise, He should not hesitate to call. Destiny Alan M.D. PROGRESS Observed: 10/27/2017 Status: COMPLETED Source: [place] 12:[address] [facility] REPOSITORY HNO ID: [id number] Author: Kirk Magdaleno Service: (none) Author Type: (none) Type: Progress Notes Filed: 10/27/2017 12:51 PM Note Text: Radiology Service Progress Note PATIENT NAME: Juma Blanc DATE OF SERVICE: October 27, 2017 TIME: 12:49 PM PATIENT IDENTITY VERIFICATION COMPLETED USING TWO (2) METHODS: Patient confirmed name verbally and Date of . PATIENT GENDER DATA: Male PATIENT RELEVANT IMPLANT DATA REVIEWED: Not Applicable RADIOLOGY DEPARTMENT: General X-ray: Exam(s) Completed: Upper Extremity X-Ray(s): Shoulder, AP / TRUE AP / AXILLARY / SUPRA OUTLET right : PERIPHERAL IV DATA: Not applicable SIGNED BY: Kirk Magdaleno October 27, 2017 12:49 PM XR SHLDR >/=3V Observed: 10/27/2017 Status: F Source: [place] AP/SOTO AP/OTHR RT 12:[address] [facility] REPOSITORY * * *Final Report* * * DATE OF EXAM: Oct 27 2017 12:47PM AOX [id number] - XR SHLDR >/=3V AP/SOTO AP/OTHR RT / PROCEDURE REASON: Unspecified injury of right shoulder and upper arm, sequela * * * * Physician Interpretation * * * * Examination: XR SHLDR >/=3V AP/SOTO AP/OTHR RT HISTORY: follow up visit. grinding in right shoulder when abducted and moving shoulder front and back Unspecified injury of right shoulder and upper arm, sequela . TECHNIQUE: XR SHLDR >/=3V AP/SOTO AP/OTHR RT Laterality: RIGHT Number of different views (projections): 4 M: XB_1 COMPARISON: 09/14/2014. RESULT: Widened AC joint with irregular articular margins, unchanged. Well-preserved glenohumeral joint. Partially visualized lung parenchyma is unremarkable. IMPRESSION: Changes of AC joint osteolysis, unchanged Staff Accountant: PSCB Transcribe Date/Time: Oct 27 2017 1:26P Dictated by : CHRIS RODRIGUEZ MD This examination was interpreted and the report reviewed and electronically signed by: YVON TORIBIO MD on Oct 27 2017 4:09PM EST [id number] CNOV Observed: 10/27/2017 Status: COMPLETED Source: [place] 12:[address] [facility] REPOSITORY Office Visit ([facility]) GUANACOJUMA ([id number]) 1955 M Date Time Provider Department 10/27/17 12:45 PM [facility] During your visit today, we recorded the following information about you: Destiny Alan MD 10/27/2017 2:07 PM Signed [facility] NOTE Department of Orthopaedics Destiny Alan M.D. NAME: Juma Rochelle Corrinagriffin [facility] NO.: [id number] DATE: October 27, 2017 Juma returns for follow-up today for his right shoulder. Overall he is significantly improved since last visit. He has done well with physical therapy and has no pain complaints at this time. ? PHYSICAL EXAMINATION: Physical examination today of the right shoulder shows no atrophy. ?There is no swelling, redness, or ecchymosis over the shoulder, including the acromioclavicular joint. ?There is no deformity. ?Range of motion testing shows:?? ? Passive forward elevation is to 160-170?on the right?with pain, compared to 170?on the left. Active forward elevation is to 160-170 on the right?limited by pain, compared to 170?on the left. Passive external rotation at the side is to 50-60?on the right, compared to 60?on the left. Active internal rotation is to the mid thoracic?levels on the right, compared to the mid thoracic?levels on the left. ? Strength testing of the right rotator cuff shows 5/5 strength with resisted external rotation at the side and 5/5 strength with resisted Karla's maneuver.?There is?no pain with resisted Karla's maneuver. Lag signs are?negative. Belly press testing is negative. There is?no pain with impingement maneuvers. There is minimal?pain?at end-range motion. There is?minimal tenderness to palpation at the?acromioclavicular joint. The right?upper extremity is otherwise grossly neurovascularly intact to testing. ? RADIOGRAPHIC STUDIES: X-rays of the right shoulder taken today are available for review and again show evidence of distal clavicle osteolysis. This does not appear changed from last visit. ? Bloodwork from September 14, 2017 is reviewed and shows a normal ESR and CRP ? 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 PLAN: I discussed treatment with Juma. Overall he is doing very well at this point. He has regained almost all of his range of motion. His x-rays are stable and he has no concern for infection. We discussed arm use as tolerated at this point with continued home exercises as needed. I will otherwise see him back on an as-needed basis. He agrees this plan. If any questions or concerns arise, He should not hesitate to call. Destiny Alan M.D. Referring Provider: ANGELA GEORGES) [[id number]] Allergies As of Date: 10/27/2017 (No Known Allergies) Date Reviewed: 10/27/2017 Reviewed by: Meggan Gao Ma - Fully Assessed Reason for Visit: Follow Up [171] Cmt: right shoulder Primary Visit Diagnosis:Acromioclavicular joint injury, right, sequela [S49.91XS] Prescriptions as of 10/27/2017 Sig: IBUPROFEN 200 MG TABLET Take 200 mg by mouth every 6 * MELOXICAM 15 MG TABLET TAKE 1 TABLET BY MOUTH ONCE D* Problem List As Of Date 10/27/2017 Noted Resolved HYDROCELE [603] INVALID FOR* Medial epicondylitis of elbow [M77.00] INVALID FOR*12/02/2016 Pain in joint, site unspecified [M25.50] INVALID FOR*12/02/2016 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 HEMORRHOIDS NOS [K64.9] More... DIVERTICULOSIS OF COLON W/O BLEED [K57.30] More... Benign prostatic hyperplasia without lower urin*INVALID FOR* Right groin pain [R10.31] INVALID FOR*12/02/2016 Night sweats [R61] INVALID FOR* More... Shoulder pain [M25.519] INVALID FOR*12/02/2016 More... Left cervical radiculopathy [M54.12] INVALID FOR* Muscle spasm of left shoulder area [M62.838] INVALID FOR*12/02/2016 Personal history of colonic polyps [Z86.010] INVALID FOR*06/19/2015 Chronic left-sided low back pain with left-side*INVALID FOR* Acromioclavicular joint injury, right, sequela *INVALID FOR* Disposition: Return if symptoms worsen or fail to improve. Follow-up and Disposition History Recorded Encounter Status:Closed by DESTINY ALAN MD on 10/27/17 PROGRESS Observed: 10/23/2017 Status: COMPLETED Source: [place] 7:34 PM [facility] REPOSITORY HNO ID: [id number] Author: Jewel Gaspar Service: (none) Author Type: Physical Therapist Type: Progress Notes Filed: 10/23/2017 7:43 PM Note Text: Episode Visit Count: 5 Therapist That Will Oversee The Plan Of Care: Jewel Gaspar Start of Care Date: 09/19/17 [facility] PHYSICAL THERAPY DISCONTINUANCE OF CARE PLAN OF CARE UPDATE: Assessment: Juma Blanc is discontinued from Physical Therapy services due to maximal benefit.. Patient was seen for 5 visits from Start of Care Date: 09/19/17 to 10/23/2017 and treatment included: Therapeutic exercise and Manual therapy. Patient has seen decreased pain and improved strength and overall function of the right shoulder, but still has endurance, crepitus, and functional deficits. Goals for Episode of Care: created on 09/19/17 through 11/20/17 [place] in home exercise program. Met Patient will decrease pain rating by 2 points to meet minimal clinical important difference for numeric pain rating scale. met Patient will increase active ROM of right shoulder to =L to allow pt to improved performance of ADLs. Not met Patient will increase strength of right shoulder to 5/5 in all motions to allow for return to prior functional status and perform ADLs. Not met Perform reaching overhead without pain. Not met SUBJECTIVE: Pt has seen decreased pain and improved function of shoulder since beginning therapy, but he still has a lot of popping and cracking that concerns him, especially since he feels it is getting louder and more frequent. Reaching across body can hurt, and raising arm up prodce the most cracking. Pt is unsure he can return to the same job he was doing as it is repeated overhead motions for 8 hours.. Pain Score: 1/10 OBJECTIVE MEASURES WITH LEVEL OF FUNCTION: UE AROM R Shoulder Flex: 155 Degrees R Shoulder ABduction: 160 Degrees R Shoulder Internal Rotation (Functional): T10 R Shoulder External Rotation (Functional): T4 UE and Cervical Strength L UE Strength: 5/5 R Shoulder Flexion: 5/5 R Shoulder Abduction (C5): 4+/5 R Shoulder Internal Rotation: 5/5 R Shoulder External Rotation: 5/5 R Shoulder Horizontal ABduction: 5/5 R Shoulder Horizontal ADduction: 4+/5 R Scapular Retraction: 5/5 R Serratus Anterior: 5/5 R Elbow Flexion (C6): 5/5 R Elbow Extension (C7): 5/5 R Forearm Supination: 5/5 R Forearm Pronation: 5/5 TREATMENT: Therapeutic Exercise: 2: Shoulder pulleys into flexion x20 4: Full can 3x fatigue 3# 5: Side Lying ER 3x fatigue 3# 6: Doorway circles cw, ccw x20 sec [address] way Skilled Intervention: Patient was educated in proper exercise technique and purpose for exercises. Skilled judgment was provided in selection of appropriate interventions. Billing: [facility]: Therapeutic Exercise ([id number]): 1:1 time: 40 minutes (3 units: 38-52 mins) Total time: 40 minutes Jewel Gaspar PT CNTHERAPY Observed: 10/17/2017 Status: COMPLETED Source: [place] 11:[address] [facility] REPOSITORY OT/PT/Speech Visit (PTWS) JUMA BLANC ([id number]) 1955 M Date Time Provider Department 10/17/17 11:15 AM JEWEL GASPAR (PT) PTWS Date Time Provider Department Center 10/17/2017 11:15 AM [id number], SEAN (PT)PTWS [facility] Reason for Visit: Physical Therapy [503] Primary Visit Diagnosis:Acromioclavicular joint injury, right, sequela [S49.91XS] Allergies As of Date: 10/17/2017 Noted Allergy Reaction ZOSTRIX (CAPSAICIN) 06/04/2005 5 - Intolerance Comments: causes severe buring of skin Date Reviewed: 09/14/2017 Reviewed by: Destiny Alan - Fully Assessed Prescriptions as of 10/17/2017 Sig: IBUPROFEN 200 MG TABLET Take 200 mg by mouth every 6 * MELOXICAM 15 MG TABLET TAKE 1 TABLET BY MOUTH ONCE D* Progress Notes: Jewel Gaspar PT 10/23/2017 7:43 PM Signed Episode Visit Count: 5 Therapist That Will Oversee The Plan Of Care: Jewel Gaspar Start of Care Date: 09/19/17 REHABILITATION AND SPORTS THERAPY PHYSICAL THERAPY DISCONTINUANCE OF CARE PLAN OF CARE UPDATE: Assessment: Juma Blanc is discontinued from Physical Therapy services due to maximal benefit.. Patient was seen for 5 visits from Start of Care Date: 09/19/17 to 10/23/2017 and treatment included: Therapeutic exercise and Manual therapy. Patient has seen decreased pain and improved strength and overall function of the right shoulder, but still has endurance, crepitus, and functional deficits. Goals for Episode of Care: created on 09/19/17 through 11/20/17 [place] in home exercise program. Met Patient will decrease pain rating by 2 points to meet minimal clinical important difference for numeric pain rating scale. met Patient will increase active ROM of right shoulder to =L to allow pt to improved performance of ADLs. Not met Patient will increase strength of right shoulder to 5/5 in all motions to allow for return to prior functional status and perform ADLs. Not met Perform reaching overhead without pain. Not met SUBJECTIVE: Pt has seen decreased pain and improved function of shoulder since beginning therapy, but he still has a lot of popping and cracking that concerns him, especially since he feels it is getting louder and more frequent. Reaching across body can hurt, and raising arm up prodce the most cracking. Pt is unsure he can return to the same job he was doing as it is repeated overhead motions for 8 hours.. Pain Score: 1/10 OBJECTIVE MEASURES WITH LEVEL OF FUNCTION: UE AROM R Shoulder Flex: 155 Degrees R Shoulder ABduction: 160 Degrees R Shoulder Internal Rotation (Functional): T10 R Shoulder External Rotation (Functional): T4 UE and Cervical Strength L UE Strength: 5/5 R Shoulder Flexion: 5/5 R Shoulder Abduction (C5): 4+/5 R Shoulder Internal Rotation: 5/5 R Shoulder External Rotation: 5/5 R Shoulder Horizontal ABduction: 5/5 R Shoulder Horizontal ADduction: 4+/5 R Scapular Retraction: 5/5 R Serratus Anterior: 5/5 R Elbow Flexion (C6): 5/5 R Elbow Extension (C7): 5/5 R Forearm Supination: 5/5 R Forearm Pronation: 5/5 TREATMENT: Therapeutic Exercise: 2: Shoulder pulleys into flexion x20 4: Full can 3x fatigue 3# 5: Side Lying ER 3x fatigue 3# 6: Doorway circles cw, ccw x20 sec [address] way Skilled Intervention: Patient was educated in proper exercise technique and purpose for exercises. Skilled judgment was provided in selection of appropriate interventions. Billing: [facility]: Therapeutic Exercise ([id number]): 1:1 time: 40 minutes (3 units: 38-52 mins) Total time: 40 minutes Jewel Gaspar PT PROGRESS Observed: 10/11/2017 Status: COMPLETED Source: [place] 2:53 PM [facility] REPOSITORY HNO ID: [id number] Author: Jewel (Pt) Hubert Service: (none) Author Type: Physical Therapist Type: Progress Notes Filed: 10/11/2017 2:57 PM Note Text: Episode Visit Count: 4 Therapist That Will Oversee The Plan Of Care: Jewel Gaspar Start of Care Date: 09/19/17 REHABILITATION AND SPORTS THERAPY PHYSICAL THERAPY TREATMENT NOTE ASSESSMENT: Juma Blanc demonstrated difficulty with shoulder strengthening exercises, with exercises progressed to the point of fatigue today. Upon palpation during arm motions, patient had a lot of crepitus over the AC joint today. No pain currently, but very excessive crepitus. The patient will continue to benefit from continued skilled physical therapy for continued strength progression. PLAN FOR NEXT VISIT: May add in PNF patterns SUBJECTIVE: Pt continues to be concerned about the popping and grinding in his shoulder. He has a visit coming up with a specialist. Pain Score: 0/10 OBJECTIVE MEASURES WITH LEVEL OF FUNCTION: Significant amount of crepitus noted with arm motions over AC joint, tenderness noted over AC joint TREATMENT: Therapeutic Exercise: 1: UBE 2.5 min forward, 2.5 min retro at pt selected pace, seat position 10- subjective taken at this time and pt explained purpose and progression of exercise 2: Shoulder pulleys into flexion x20 4: Full can 3x fatigue 3# 5: Side Lying ER 3x fatigue 3# 6: Doorway circles cw, ccw x20 [address] Skilled Intervention: Patient was educated in proper exercise technique and purpose for exercises. Skilled judgment was provided in selection of appropriate interventions. Manual Therapy: 1: TrP release to right infraspinatus and supraspinatus, triceps, multiple points 2: STM to right infraspinatus, supraspinatus, triceps accessing for tender spots and trigger points Skilled Intervention: Manual skills to improve joint mobility, ROM, and decrease pain. Utilized anatomy knowledge of the therapist, and assessment of patient's response to intervention. Billing: [facility]: Therapeutic Exercise ([id number]): 1:1 time: 25 minutes (1 unit: 8-22 mins) Manual Therapy ([id number]): 1:1 time: 15 minutes (1 unit: 8-22 mins) Total time: 40 minutes Jewel Gaspar PT CNTHERAPY Observed: 10/10/2017 Status: COMPLETED Source: [place] 9:[address] [facility] REPOSITORY OT/PT/Speech Visit (PTWS) JUMA BLANC ([id number]) 1955 M Date Time Provider Department 10/10/17 9:45 AM JEWEL GASPAR (PT) PTJOSE DANIEL Date Time Provider Department Center 10/10/2017 9:45 AM [id number], SEAN (PT)PTWS [facility] Reason for Visit: Physical Therapy [503] Primary Visit Diagnosis:Acromioclavicular joint injury, right, sequela [S49.91XS] Allergies As of Date: 10/10/2017 Noted Allergy Reaction ZOSTRIX (CAPSAICIN) 06/04/2005 5 - Intolerance Comments: causes severe buring of skin Date Reviewed: 09/14/2017 Reviewed by: Destiny Alan - Fully Assessed Prescriptions as of 10/10/2017 Sig: IBUPROFEN 200 MG TABLET Take 200 mg by mouth every 6 * MELOXICAM 15 MG TABLET TAKE 1 TABLET BY MOUTH ONCE D* Progress Notes: Jewel Gaspar PT 10/11/2017 2:57 PM Signed Episode Visit Count: 4 Therapist That Will Oversee The Plan Of Care: Jewel Gaspar Start of Care Date: 09/19/17 REHABILITATION AND SPORTS THERAPY PHYSICAL THERAPY TREATMENT NOTE ASSESSMENT: Juma Blanc demonstrated difficulty with shoulder strengthening exercises, with exercises progressed to the point of fatigue today. Upon palpation during arm motions, patient had a lot of crepitus over the AC joint today. No pain currently, but very excessive crepitus. The patient will continue to benefit from continued skilled physical therapy for continued strength progression. PLAN FOR NEXT VISIT: May add in PNF patterns SUBJECTIVE: Pt continues to be concerned about the popping and grinding in his shoulder. He has a visit coming up with a specialist. Pain Score: 0/10 OBJECTIVE MEASURES WITH LEVEL OF FUNCTION: Significant amount of crepitus noted with arm motions over AC joint, tenderness noted over AC joint TREATMENT: Therapeutic Exercise: 1: UBE 2.5 min forward, 2.5 min retro at pt selected pace, seat position 10- subjective taken at this time and pt explained purpose and progression of exercise 2: Shoulder pulleys into flexion x20 4: Full can 3x fatigue 3# 5: Side Lying ER 3x fatigue 3# 6: Doorway circles cw, ccw x20 [address] Skilled Intervention: Patient was educated in proper exercise technique and purpose for exercises. Skilled judgment was provided in selection of appropriate interventions. Manual Therapy: 1: TrP release to right infraspinatus and supraspinatus, triceps, multiple points 2: STM to right infraspinatus, supraspinatus, triceps accessing for tender spots and trigger points Skilled Intervention: Manual skills to improve joint mobility, ROM, and decrease pain. Utilized anatomy knowledge of the therapist, and assessment of patient's response to intervention. Billing: [facility]: Therapeutic Exercise ([id number]): 1:1 time: 25 minutes (1 unit: 8-22 mins) Manual Therapy ([id number]): 1:1 time: 15 minutes (1 unit: 8-22 mins) Total time: 40 minutes Jewel Gaspar PT PROGRESS Observed: 10/03/2017 Status: COMPLETED Source: [place] 8:50 PM [facility] REPOSITORY O ID: [id number] Author: Jewel Gaspar Service: (none) Author Type: Physical Therapist Type: Progress Notes Filed: 10/03/2017 9:01 PM Note Text: Episode Visit Count: 3 Therapist That Will Oversee The Plan Of Care: Jewel Gaspar Start of Care Date: 09/19/17 Patient Identified by Name and Date of : Yes REHABILITATION AND SPORTS THERAPY PHYSICAL THERAPY TREATMENT NOTE ASSESSMENT: Juma Blanc demonstrated improvements in arm pain and tolerance for overhead motions today. Patient still with shoulder tightness but no pain today. The patient will continue to benefit from continued skilled physical therapy for manual techniques prn, and progressive exercises to return to prior level of function. PLAN FOR NEXT VISIT: may try overhead plyo exercises SUBJECTIVE: Pt doing better today. No pain, just tightness coming in. Pain Score: 0/10 OBJECTIVE MEASURES WITH LEVEL OF FUNCTION: Tenderness to below noted areas. TREATMENT: Therapeutic Exercise: 1: UBE 2.5 min forward, 2.5 min retro at pt selected pace, seat position 10- subjective taken at this time and pt explained purpose and progression of exercise 2: Shoulder pulleys into flexion x20 4: Full can 2x10 3# 5: Side Lying ER 2x10 3# 6: Doorway circles cw, ccw x[address] Skilled Intervention: Patient was educated in proper exercise technique and purpose for exercises. Skilled judgment was provided in selection of appropriate interventions. Correct performance of therapeutic exercises was facilitated with verbal cuing. Manual Therapy: 1: TrP release to right infraspinatus and supraspinatus, triceps, multiple points 2: STM to right infraspinatus, supraspinatus, triceps accessing for tender spots and trigger points Skilled Intervention: Manual skills to improve joint mobility, ROM, and decrease pain. Utilized anatomy knowledge of the therapist, and assessment of patient's response to intervention. Billing: [facility]: Therapeutic Exercise ([id number]): 1:1 time: 30 minutes (2 units: 23-37 mins) Manual Therapy ([id number]): 1:1 time: 10 minutes (1 unit: 8-22 mins) Total time: 40 minutes Jewel Gaspar PT CNTHERAPY Observed: 10/03/2017 Status: COMPLETED Source: [place] 12:[address] [facility] REPOSITORY OT/PT/Speech Visit (PTWS) JUMA BLANC ([id number]) 1955 M Date Time Provider Department 10/03/17 12:00 PM JEWEL GASPAR (PT) PTWS Date Time Provider Department Center 10/03/2017 12:00 PM [id number], SEAN (PT)PTWS [facility] Reason for Visit: Physical Therapy [503] Primary Visit Diagnosis:Acromioclavicular joint injury, right, sequela [S49.91XS] Allergies As of Date: 10/03/2017 Noted Allergy Reaction ZOSTRIX (CAPSAICIN) 06/04/2005 5 - Intolerance Comments: causes severe buring of skin Date Reviewed: 09/14/2017 Reviewed by: Destiny Alan - Fully Assessed Prescriptions as of 10/03/2017 Sig: IBUPROFEN 200 MG TABLET Take 200 mg by mouth every 6 * MELOXICAM 15 MG TABLET TAKE 1 TABLET BY MOUTH ONCE D* Progress Notes: Jewel Gaspar PT 10/03/2017 9:01 PM Signed Episode Visit Count: 3 Therapist That Will Oversee The Plan Of Care: Jewel Gaspar Start of Care Date: 09/19/17 Patient Identified by Name and Date of : Yes REHABILITATION AND SPORTS THERAPY PHYSICAL THERAPY TREATMENT NOTE ASSESSMENT: Juma Blanc demonstrated improvements in arm pain and tolerance for overhead motions today. Patient still with shoulder tightness but no pain today. The patient will continue to benefit from continued skilled physical therapy for manual techniques prn, and progressive exercises to return to prior level of function. PLAN FOR NEXT VISIT: may try overhead plyo exercises SUBJECTIVE: Pt doing better today. No pain, just tightness coming in. Pain Score: 0/10 OBJECTIVE MEASURES WITH LEVEL OF FUNCTION: Tenderness to below noted areas. TREATMENT: Therapeutic Exercise: 1: UBE 2.5 min forward, 2.5 min retro at pt selected pace, seat position 10- subjective taken at this time and pt explained purpose and progression of exercise 2: Shoulder pulleys into flexion x20 4: Full can 2x10 3# 5: Side Lying ER 2x10 3# 6: Doorway circles cw, ccw x[address] Skilled Intervention: Patient was educated in proper exercise technique and purpose for exercises. Skilled judgment was provided in selection of appropriate interventions. Correct performance of therapeutic exercises was facilitated with verbal cuing. Manual Therapy: 1: TrP release to right infraspinatus and supraspinatus, triceps, multiple points 2: STM to right infraspinatus, supraspinatus, triceps accessing for tender spots and trigger points Skilled Intervention: Manual skills to improve joint mobility, ROM, and decrease pain. Utilized anatomy knowledge of the therapist, and assessment of patient's response to intervention. Billing: [facility]: Therapeutic Exercise ([id number]): 1:1 time: 30 minutes (2 units: 23-37 mins) Manual Therapy ([id number]): 1:1 time: 10 minutes (1 unit: 8-22 mins) Total time: 40 minutes Jewel Gaspar PT PROGRESS Observed: 09/26/2017 Status: COMPLETED Source: [place] 12:[address] [facility] REPOSITORY HNO ID: [id number] Author: Jewel (Kade) Hubert Service: (none) Author Type: Physical Therapist Type: Progress Notes Filed: 09/26/2017 1:08 PM Note Text: Episode Visit Count: 2 Therapist That Will Oversee The Plan Of Care: Jewel Gaspar Start of Care Date: 09/19/17 Patient Identified by Name and Date of : Yes REHABILITATION AND SPORTS THERAPY PHYSICAL THERAPY TREATMENT NOTE ASSESSMENT: Juma Blanc demonstrated difficulty with shoulder endurance becoming easily fatigued with exercises today, but no increase in pain noted during session. The patient will continue to benefit from continued skilled physical therapy for continued strengthening of right shoulder to return to prior level of function. PLAN FOR NEXT VISIT: may attempt UBE if symptoms allow SUBJECTIVE: No change in pain, no issues with exercises right now. They do cause fatigue but no pain. No functional changes either. Pain Score: 3/10 Pain Location: Shoulder - Right Description: Aching;Sore Frequency: Intermittent OBJECTIVE MEASURES WITH LEVEL OF FUNCTION: Tenderness noted at multiple points in infraspinatus and supraspinatus with referred pain going down patient's biceps and anterior shoulder into forearm TREATMENT: Therapeutic Exercise: 1: Shoulder pulleys into flexion x20 2: G Tband shoulder ER 2x10 3: G Tband shoulder IR 2x10 4: Full can 2x10 3# 5: Side Lying ER 2x10 3# 6: Doorway circles cw, ccw x[address] Skilled Intervention: Patient was educated in proper exercise technique and purpose for exercises. Skilled judgment was provided in selection of appropriate interventions. Correct performance of therapeutic exercises was facilitated with verbal and visual cuing. Manual Therapy: 1: TrP release to right infraspinatus and supraspinatus, multiple points Skilled Intervention: Manual skills to improve joint mobility, ROM, and decrease pain. Utilized anatomy knowledge of the therapist, and assessment of patient's response to intervention. Billing: [facility]: Therapeutic Exercise ([id number]): 1:1 time: 33 minutes (2 units: 23-37 mins) Manual Therapy ([id number]): 1:1 time: 8 minutes (1 unit: 8-22 mins) Total time: 41 minutes Jewel Gaspar PT CNTHERAPY Observed: 09/26/2017 Status: COMPLETED Source: [place] 12:[address] [facility] REPOSITORY OT/PT/Speech Visit (PTWS) JUMA BLANC ([id number]) 1955 M Date Time Provider Department 09/26/17 12:00 PM JEWEL GASPAR (PT) PTWS Date Time Provider Department Center 09/26/2017 12:00 PM [id number], SEAN (PT)PTWS [facility] Reason for Visit: Physical Therapy [503] Primary Visit Diagnosis:Acromioclavicular joint injury, right, sequela [S49.91XS] Allergies As of Date: 09/26/2017 Noted Allergy Reaction ZOSTRIX (CAPSAICIN) 06/04/2005 5 - Intolerance Comments: causes severe buring of skin Date Reviewed: 09/14/2017 Reviewed by: Destiny Alan - Fully Assessed Prescriptions as of 09/26/2017 Sig: IBUPROFEN 200 MG TABLET Take 200 mg by mouth every 6 * MELOXICAM 15 MG TABLET TAKE 1 TABLET BY MOUTH ONCE D* Progress Notes: Jewel Gaspar, PT 09/26/2017 1:08 PM Signed Episode Visit Count: 2 Therapist That Will Oversee The Plan Of Care: Jewel Gaspar Start of Care Date: 09/19/17 Patient Identified by Name and Date of : Yes REHABILITATION AND SPORTS THERAPY PHYSICAL THERAPY TREATMENT NOTE ASSESSMENT: Juma Blanc demonstrated difficulty with shoulder endurance becoming easily fatigued with exercises today, but no increase in pain noted during session. The patient will continue to benefit from continued skilled physical therapy for continued strengthening of right shoulder to return to prior level of function. PLAN FOR NEXT VISIT: may attempt UBE if symptoms allow SUBJECTIVE: No change in pain, no issues with exercises right now. They do cause fatigue but no pain. No functional changes either. Pain Score: 3/10 Pain Location: Shoulder - Right Description: Aching;Sore Frequency: Intermittent OBJECTIVE MEASURES WITH LEVEL OF FUNCTION: Tenderness noted at multiple points in infraspinatus and supraspinatus with referred pain going down patient's biceps and anterior shoulder into forearm TREATMENT: Therapeutic Exercise: 1: Shoulder pulleys into flexion x20 2: G Tband shoulder ER 2x10 3: G Tband shoulder IR 2x10 4: Full can 2x10 3# 5: Side Lying ER 2x10 3# 6: Doorway circles cw, ccw x20 [address] Skilled Intervention: Patient was educated in proper exercise technique and purpose for exercises. Skilled judgment was provided in selection of appropriate interventions. Correct performance of therapeutic exercises was facilitated with verbal and visual cuing. Manual Therapy: 1: TrP release to right infraspinatus and supraspinatus, multiple points Skilled Intervention: Manual skills to improve joint mobility, ROM, and decrease pain. Utilized anatomy knowledge of the therapist, and assessment of patient's response to intervention. Billing: [facility]: Therapeutic Exercise ([id number]): 1:1 time: 33 minutes (2 units: 23-37 mins) Manual Therapy ([id number]): 1:1 time: 8 minutes (1 unit: 8-22 mins) Total time: 41 minutes Jewel Gaspar, PT PROGRESS Observed: 09/19/2017 Status: COMPLETED Source: [place] 10:[address] [facility] REPOSITORY HNO ID: [id number] Author: Jewel (Pt) Hubert Service: (none) Author Type: Physical Therapist Type: Progress Notes Filed: 09/19/2017 10:22 AM Note Text: Episode Visit Count: 1 Therapist That Will Oversee The Plan Of Care: Jweel Gaspar Start of Care Date: 09/19/17 Patient Identified by Name and Date of : Yes REHABILITATION AND SPORTS THERAPY PHYSICAL THERAPY EVALUATION PLAN OF CARE: Assessment: Juma Blanc presents with the chief complaint of right shoulder pain. He presents with impairments of limited shoulder range of motion, decreased shoulder strength, inability to perform work tasks and any overhead motions currently. He may benefit from skilled therapy services to improve the above noted deficits to help patient return to work and prior level of function. Patient has signs and symptoms consistent with shoulder impingement and possible supraspinatus and/or biceps tendon pathology. Patient's work demands including overhead motions hundreds of times per day with resistance, which may be a barrier to full recovery. Prognosis: Fair Fair due to: clinical presentation;limited tolerance to activity;occupational demands Goals for Episode of Care: created on 09/19/17 through 11/20/17 [place] in home exercise program. Patient will decrease pain rating by 2 points to meet minimal clinical important difference for numeric pain rating scale. Patient will increase active ROM of right shoulder to =L to allow pt to improved performance of ADLs. Patient will increase strength of right shoulder to 5/5 in all motions to allow for return to prior functional status and perform ADLs. Perform reaching overhead without pain. Planned Interventions, Frequency, and Duration: Current Frequency: 1x/week Duration: 4 weeks Total Number of Visits Planned: 4 Planned Treatment Interventions: Therapeutic exercise;Manual therapy;Self-long-term management;Patient/Family/Caregiver Education PLAN FOR NEXT VISIT: Door slides and scapular upward rotation strengthening Patient demonstrates good understanding of plan of care and treatment. The above goals and plan of care were discussed and agreed upon by patient/family. SUBJECTIVE: Juma Blanc is a 62 year old male seen today for right shoulder pain since July. 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 Certain motions cause a lot of popping with some pain. Pain Score: 2/10 Pain Location: Shoulder - Right Description: Aching;Sore Frequency: Intermittent OBJECTIVE MEASURES WITH LEVEL OF FUNCTION: UE AROM R Shoulder Flex: 138 Degrees R Shoulder ABduction: 113 Degrees R Shoulder Internal Rotation (Functional): T12 R Shoulder External Rotation (Functional): C7 L Shoulder Flex: 165 Degrees L Shoulder ABduction: 165 Degrees L Shoulder Internal Rotation (Functional): T4 L Shoulder External Rotation (Functional): T4 UE and Cervical Strength L UE Strength: 5/5 R Shoulder Flexion: 4+/5 R Shoulder Abduction (C5): 4+/5 R Shoulder Internal Rotation: 5/5 R Shoulder External Rotation: 4+/5 R Shoulder Horizontal ABduction: 5/5 R Shoulder Horizontal ADduction: 4+/5 R Scapular Retraction: 5/5 R Serratus Anterior: 4+/5 R Elbow Flexion (C6): 5/5 R Elbow Extension (C7): 5/5 R Forearm Supination: 5/5 R Forearm Pronation: 5/5 Special Tests - Shoulder Shoulder Special Tests: Apprehension;Empty Can;Daniels-Surya;Load and Shift;Neer;[place];Relocation;Speed's Apprehension: Right Negative (Positive for posterior impingement) Empty Can: Right Positive Daniels-Surya: Right Positive Load and Shift: right n Neer: Right Positive [place]: Right Negative Relocation: Right Negative (Positive to relieve impingement pain) Speed's: Right Negative Education: TREATMENT: Evaluation Therapeutic Exercise: 1: Shoulder pulleys into flexion x20 2: G Tband shoulder ER 2x10 3: G Tband shoulder IR 2x10 4: Full can 2x10 3# 5: Side Lying ER 2x10 3# Skilled Intervention: Patient was educated in proper exercise technique and purpose for exercises. Skilled judgment was provided in selection of appropriate interventions. Provided written instruction for home exercise program to facilitate proper performance and compliance. Correct performance of therapeutic exercises was facilitated with verbal, visual and tactile cuing. Self-Detention Management: 1: Pt educated extensively on possible pathologies, shoulder anatomy and function, possible causes of popping and clicking in shoulder, and mechanisms of pain and dysfuction he is currently experiencing Skilled Intervention: Skilled judgment in the selection of proper modification for activity of daily living/home management based on clinical presentation, deficits, and needs. Reviewed patient specific diagnosis in relation to activities of daily living/home management. Provided written instruction for home program to facilitate proper performance and compliance. Correct performance of home program was facilitated with verbal, visual and tactile cueing. Billing: [facility]: Evaluation - Low Complexity (32291) Therapeutic Exercise (68211): 1:1 time: 30 minutes (2 units: 23-37 mins) Educ Home Mgmt (39141): 1:1 time: 15 minutes (1 unit: 8-22 mins) Total time: 70 minutes Jewel Gaspar PT CNTHERAPY Observed: 09/19/2017 Status: COMPLETED Source: [place] 9:[address] [facility] REPOSITORY OT/PT/Speech Visit (PTWS) JUMA BLANC ([id number]) 1955 M Date Time Provider Department 09/19/17 9:00 AM JEWEL GASPAR (PT) PTWS Date Time Provider Department Center 09/19/2017 9:00 AM [id number], SEAN (PT)PTWS [facility] Reason for Visit: PT Eval [747] Primary Visit Diagnosis:Acromioclavicular joint injury, right, sequela [S49.91XS] Allergies As of Date: 09/19/2017 Noted Allergy Reaction ZOSTRIX (CAPSAICIN) 06/04/2005 5 - Intolerance Comments: causes severe buring of skin Date Reviewed: 09/14/2017 Reviewed by: Destiny Alan - Fully Assessed Prescriptions as of 09/19/2017 Sig: IBUPROFEN 200 MG TABLET Take 200 mg by mouth every 6 * MELOXICAM 15 MG TABLET TAKE 1 TABLET BY MOUTH ONCE D* Progress Notes: Jewel Gaspar PT 09/19/2017 10:22 AM Signed Episode Visit Count: 1 Therapist That Will Oversee The Plan Of Care: Jewel Gaspar Start of Care Date: 09/19/17 Patient Identified by Name and Date of : Yes REHABILITATION AND SPORTS THERAPY PHYSICAL THERAPY EVALUATION PLAN OF CARE: Assessment: Juma Blanc presents with the chief complaint of right shoulder pain. He presents with impairments of limited shoulder range of motion, decreased shoulder strength, inability to perform work tasks and any overhead motions currently. He may benefit from skilled therapy services to improve the above noted deficits to help patient return to work and prior level of function. Patient has signs and symptoms consistent with shoulder impingement and possible supraspinatus and/or biceps tendon pathology. Patient's work demands including overhead motions hundreds of times per day with resistance, which may be a barrier to full recovery. Prognosis: Fair Fair due to: clinical presentation;limited tolerance to activity;occupational demands Goals for Episode of Care: created on 09/19/17 through 11/20/17 [place] in home exercise program. Patient will decrease pain rating by 2 points to meet minimal clinical important difference for numeric pain rating scale. Patient will increase active ROM of right shoulder to =L to allow pt to improved performance of ADLs. Patient will increase strength of right shoulder to 5/5 in all motions to allow for return to prior functional status and perform ADLs. Perform reaching overhead without pain. Planned Interventions, Frequency, and Duration: Current Frequency: 1x/week Duration: 4 weeks Total Number of Visits Planned: 4 Planned Treatment Interventions: Therapeutic exercise;Manual therapy;Self-long-term management;Patient/Family/Caregiver Education PLAN FOR NEXT VISIT: Door slides and scapular upward rotation strengthening Patient demonstrates good understanding of plan of care and treatment. The above goals and plan of care were discussed and agreed upon by patient/family. SUBJECTIVE: Juma Blanc is a 62 year old male seen today for right shoulder pain since July. 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 Certain motions cause a lot of popping with some pain. Pain Score: 2/10 Pain Location: Shoulder - Right Description: Aching;Sore Frequency: Intermittent OBJECTIVE MEASURES WITH LEVEL OF FUNCTION: UE AROM R Shoulder Flex: 138 Degrees R Shoulder ABduction: 113 Degrees R Shoulder Internal Rotation (Functional): T12 R Shoulder External Rotation (Functional): C7 L Shoulder Flex: 165 Degrees L Shoulder ABduction: 165 Degrees L Shoulder Internal Rotation (Functional): T4 L Shoulder External Rotation (Functional): T4 UE and Cervical Strength L UE Strength: 5/5 R Shoulder Flexion: 4+/5 R Shoulder Abduction (C5): 4+/5 R Shoulder Internal Rotation: 5/5 R Shoulder External Rotation: 4+/5 R Shoulder Horizontal ABduction: 5/5 R Shoulder Horizontal ADduction: 4+/5 R Scapular Retraction: 5/5 R Serratus Anterior: 4+/5 R Elbow Flexion (C6): 5/5 R Elbow Extension (C7): 5/5 R Forearm Supination: 5/5 R Forearm Pronation: 5/5 Special Tests - Shoulder Shoulder Special Tests: Apprehension;Empty Can;Daniels-Surya;Load and Shift;Neer;[place];Relocation;Speed's Apprehension: Right Negative (Positive for posterior impingement) Empty Can: Right Positive Daniels-Surya: Right Positive Load and Shift: right n Neer: Right Positive [place]: Right Negative Relocation: Right Negative (Positive to relieve impingement pain) Speed's: Right Negative Education: TREATMENT: Evaluation Therapeutic Exercise: 1: Shoulder pulleys into flexion x20 2: G Tband shoulder ER 2x10 3: G Tband shoulder IR 2x10 4: Full can 2x10 3# 5: Side Lying ER 2x10 3# Skilled Intervention: Patient was educated in proper exercise technique and purpose for exercises. Skilled judgment was provided in selection of appropriate interventions. Provided written instruction for home exercise program to facilitate proper performance and compliance. Correct performance of therapeutic exercises was facilitated with verbal, visual and tactile cuing. Self-Detention Management: 1: Pt educated extensively on possible pathologies, shoulder anatomy and function, possible causes of popping and clicking in shoulder, and mechanisms of pain and dysfuction he is currently experiencing Skilled Intervention: Skilled judgment in the selection of proper modification for activity of daily living/home management based on clinical presentation, deficits, and needs. Reviewed patient specific diagnosis in relation to activities of daily living/home management. Provided written instruction for home program to facilitate proper performance and compliance. Correct performance of home program was facilitated with verbal, visual and tactile cueing. Billing: [facility]: Evaluation - Low Complexity (65861) Therapeutic Exercise (99027): 1:1 time: 30 minutes (2 units: 23-37 mins) Educ Home Mgmt (07958): 1:1 time: 15 minutes (1 unit: 8-22 mins) Total time: 70 minutes Jewel Gaspar PT C-REACTIVE PROTEIN Collected: 09/14/2017 Status: F Source: [place] 1:[address] [facility] REPOSITORY TYPE CODE TESTS RESULT OUT OF REFERENCE UNITS RANGE LAB CRP <0.9 mg/dL C-Reactive 0.2 Protein Performed By: #### CRP, WSR #### [facility] [address] [place] [id number] SED RATE WESTERGREN Collected: 09/14/2017 Status: F Source: [place] 1:[address] [facility] REPOSITORY TYPE CODE TESTS RESULT OUT OF REFERENCE UNITS RANGE LAB WSR 0-15 mm/hr Sed Rate Westergren 2 Performed By: #### CRP, WSR #### [facility] [address] [place] [address] PROGRESS Observed: 09/14/2017 Status: COMPLETED Source: [place] 1:[address] [facility] REPOSITORY HNO ID: [id number] Author: Destiny Alan Service: (none) Author Type: Physician Type: Progress Notes Filed: 09/14/2017 1:39 PM Note Text: [facility] NOTE Department of Orthopaedics Destiny Alan M.D. NAME: Juma Byrd [facility] NO.: [id number] DATE: September 14, 2017 Juma returns for follow-up today for his right shoulder. Overall he is significantly improved since last visit. He is gaining strength and range of motion. He has only mild pain complaints. PHYSICAL EXAMINATION: Physical examination today of the right shoulder shows no atrophy. There is no swelling, redness, or ecchymosis over the shoulder, including the acromioclavicular joint. There is no deformity. Range of motion testing shows: ? Passive forward elevation is to 150-160 on the right with pain, compared to 170 on the left. Active forward elevation is to 150 on the right limited by pain, compared to 170 on the left. Passive external rotation at the side is to 50-60 on the right, compared to 60 on the left. Active internal rotation is to the lower to mid thoracic levels on the right, compared to the mid thoracic levels on the left. ? Strength testing of the right rotator cuff shows 5/5 strength with resisted external rotation at the side and 5/5 strength with resisted Karla's maneuver. There is pain with resisted Karla's maneuver. Lag signs are negative. Belly press testing is negative. There is pain with impingement maneuvers. There is pain at end-range motion. There is some tenderness to palpation at the acromioclavicular joint, but this is no severe. The right upper extremity is otherwise grossly neurovascularly intact to testing. RADIOGRAPHIC STUDIES: X-rays of the right shoulder taken today are available for review and again show evidence of distal clavicle osteolysis. This does not appear significantly changed from last visit. 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 Overall he is clinically improving. We did work him up for infection at last visit and this was negative. We discussed repeating another serum ESR and CRP today as a precaution. His distal clavicle osteolysis appears stable. We discussed increasing his activity at this point. He will be starting some light physical therapy next week. I will plan to see him back in 4 weeks' time for repeat evaluation with repeat x-rays. He agrees with this plan. If any questions or concerns arise, He should not hesitate to call. Destiny Alan M.D. PROGRESS Observed: 09/14/2017 Status: COMPLETED Source: [place] 12:51 PM [facility] REPOSITORY O ID: [id number] Author: Kathleen Giles Rt Service: (none) Author Type: (none) Type: Progress Notes Filed: 09/14/2017 12:52 PM Note Text: Radiology Service Progress Note PATIENT NAME: Juma Blanc DATE OF SERVICE: September 14, 2017 TIME: 12:51 PM PATIENT IDENTITY VERIFICATION COMPLETED USING TWO (2) METHODS: Patient confirmed name verbally and Date of . PATIENT GENDER DATA: Male PATIENT RELEVANT IMPLANT DATA REVIEWED: Yes RADIOLOGY DEPARTMENT: General X-ray: Exam(s) Completed: Upper Extremity X-Ray(s): Shoulder, AP / TRUE AP / AXILLARY / SUPRA OUTLET right : PERIPHERAL IV DATA: Not applicable SIGNED BY: Kathleenmerry Giles Rt September 14, 2017 12:51 PM XR SHLDR >/=3V Observed: 09/14/2017 Status: F Source: [place] AP/SOTO AP/OTHR RT 12:[address] [facility] REPOSITORY * * *Final Report* * * DATE OF EXAM: Sep 14 2017 12:50PM AOX [id number] - XR SHLDR >/=3V AP/SOTO AP/OTHR RT / PROCEDURE REASON: Unspecified injury of right shoulder and upper arm, sequela * * * * Physician Interpretation * * * * EXAMINATION: XR SHLDR >/=3V AP/SOTO AP/OTHR RT HISTORY: right shoulder pain with decreased inflammation, now with a popping sound in shoulder Unspecified injury of right shoulder and upper arm, sequela . TECHNIQUE: XR SHLDR >/=3V AP/SOTO AP/OTHR RT Laterality: RIGHT Number of different views (projections): 4 M: XB_1 COMPARISON: 08/31/2017 RESULT: Widened acromioclavicular joint with absent clavicular head and remainder of the shoulder joint shows no change in comparison to the previous examination. No new or other significant abnormality. IMPRESSION: No change. Staff Accountant: PSCB Transcribe Date/Time: Sep 14 2017 4:33P Dictated by : LUCAS WYNN MD This examination was interpreted and the report reviewed and electronically signed by: LUCAS WYNN MD on Sep 14 2017 4:36PM EST [id number] CNOV Observed: 09/14/2017 Status: COMPLETED Source: [place] 12:[address] [facility] REPOSITORY Office Visit (ORHSMN) JUMA BLANC ([id number]) 1955 M Date Time Provider Department 09/14/17 12:45 PM DESTINY ALANIDANIA During your visit today, we recorded the following information about you: Destiny Alan MD 09/14/2017 1:39 PM Signed [facility] NOTE Department of Orthopaedics Destiny Alan M.D. NAME: Juma Blanc [facility] NO.: [id number] DATE: September 14, 2017 Juma returns for follow-up today for his right shoulder. Overall he is significantly improved since last visit. He is gaining strength and range of motion. He has only mild pain complaints. PHYSICAL EXAMINATION: Physical examination today of the right shoulder shows no atrophy. There is no swelling, redness, or ecchymosis over the shoulder, including the acromioclavicular joint. There is no deformity. Range of motion testing shows: ? Passive forward elevation is to 150-160 on the right with pain, compared to 170 on the left. Active forward elevation is to 150 on the right limited by pain, compared to 170 on the left. Passive external rotation at the side is to 50-60 on the right, compared to 60 on the left. Active internal rotation is to the lower to mid thoracic levels on the right, compared to the mid thoracic levels on the left. ? Strength testing of the right rotator cuff shows 5/5 strength with resisted external rotation at the side and 5/5 strength with resisted Karla's maneuver. There is pain with resisted Karla's maneuver. Lag signs are negative. Belly press testing is negative. There is pain with impingement maneuvers. There is pain at end-range motion. There is some tenderness to palpation at the acromioclavicular joint, but this is no severe. The right upper extremity is otherwise grossly neurovascularly intact to testing. RADIOGRAPHIC STUDIES: X-rays of the right shoulder taken today are available for review and again show evidence of distal clavicle osteolysis. This does not appear significantly changed from last visit. 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 Overall he is clinically improving. We did work him up for infection at last visit and this was negative. We discussed repeating another serum ESR and CRP today as a precaution. His distal clavicle osteolysis appears stable. We discussed increasing his activity at this point. He will be starting some light physical therapy next week. I will plan to see him back in 4 weeks' time for repeat evaluation with repeat x-rays. He agrees with this plan. If any questions or concerns arise, He should not hesitate to call. Destiny Alan M.D. Referring Provider: ANGELA GEORGES (KELBY) [[id number]] Allergies As of Date: 09/14/2017 Noted Allergy Reaction ZOSTRIX (CAPSAICIN) 06/04/2005 5 - Intolerance Comments: causes severe buring of skin Date Reviewed: 09/14/2017 Reviewed by: Destiny Alan - Fully Assessed Primary Visit Diagnosis:Acromioclavicular joint injury, right, sequela [S49.91XS] Order(s):XR SHOULDER GENERAL 3V OR MORE AP/TRUE AP/OTHER RT [7018343] Order #: [id number] FUTURE SED RATE WESTERGREN [SQWSR] Order #: [id number] FUTURE C-REACTIVE PROTEIN (CRP) [SQCRP] Order #: [id number] FUTURE Prescriptions as of 09/14/2017 Sig: IBUPROFEN 200 MG TABLET Take 200 mg by mouth every 6 * MELOXICAM 15 MG TABLET TAKE 1 TABLET BY MOUTH ONCE D* Problem List As Of Date 09/14/2017 Noted Resolved HYDROCELE [603] INVALID FOR* Medial epicondylitis of elbow [M77.00] INVALID FOR*12/02/2016 Pain in joint, site unspecified [M25.50] INVALID FOR*12/02/2016 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 HEMORRHOIDS NOS [K64.9] More... DIVERTICULOSIS OF COLON W/O BLEED [K57.30] More... Benign prostatic hyperplasia without lower urin*INVALID FOR* Right groin pain [R10.31] INVALID FOR*12/02/2016 Night sweats [R61] INVALID FOR* More... Shoulder pain [M25.519] INVALID FOR*12/02/2016 More... Left cervical radiculopathy [M54.12] INVALID FOR* Muscle spasm of left shoulder area [M62.838] INVALID FOR*12/02/2016 Personal history of colonic polyps [Z86.010] INVALID FOR*06/19/2015 Chronic left-sided low back pain with left-side*INVALID FOR* Acromioclavicular joint injury, right, sequela *INVALID FOR* Disposition: Return in about 4 weeks (around 10/12/2017). Follow-up and Disposition History Recorded Encounter Status:Closed by DESTINY ALAN MD on 09/14/17 PROGRESS Observed: 09/05/2017 Status: COMPLETED Source: [place] 9:[address] [facility] REPOSITORY HNO ID: [id number] Author: Lauren Mcghee (Romero) Ayush Service: (none) Author Type: Physician Tree Surgeon Helper Type: Progress Notes Filed: 09/05/2017 9:46 AM Note Text: 62 year old male with c/o here for f/u on right shoulder. Shoulder is improving. Saw Dr. Alan who feels all r/t to injury ACJ. Attempted aspiration unsuccessfully. Very painful per patient. ROM has improved. Has pressure pain currently but no sharp pain as previous. Taking Ibuprofen. ROM remains limited. Unable to use with any weight. Hurts to brush teeth. Right eye kaleidoscope in peripheral vision around focal point in vision. Happened after last visit. Happens occasionally. 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 HISTORIES FAMILY HISTORY Problem Relation Age of Onset - Coronary Artery Disease Mother PR, CABG - transient ischemic attack [OTHER] Mother disoriented transiently - Heart Father 80 stent, CHF PAST MEDICAL HISTORY Diagnosis Date - Diverticulosis of colon (without mention of hemorrhage) Diverticulosis - Heartburn - Hydrocele - Internal hemorrhoids with other complication - Other chronic sinusitis - Unspecified hemorrhoids without mention of complication Hemorrhoids PAST SURGICAL HISTORY Procedure Laterality Date - COLONOSCOP W/ OR W/O [facility] SPEC 06/06/2003 Colonoscopy - COLONOSCOP W/ OR W/O [facility] SPEC 09/29/09 - COLONOSCOP W/ OR W/O [facility] SPEC 06/19/2015 Colonoscopy - FIX FLEX TENDON,FING/HAND,SECOND,EA right - HEMORRHOIDECTOMY, EXTNL; COMP - PAST SURGICAL HISTORY OF partial amputation tip right middle toe - PAST SURGICAL HISTORY OF 08/2005 hydrocele left testicle removed also - REPAIR ING HERNIA,5+Y/O,REDUCIBL Hernia repair, inguinal RIGHT Social History Marital status: Spouse name: Justine Years of education: 14 Number of children: 4 Occupational History Occupation Employer Comment [employer] Social History Main Topics Smoking status: Never Smoker Smokeless tobacco: Never Used Alcohol use: Yes Comment: 12 pack beer on weekends Drug use: No Sexual activity: Yes Partners with: Female ACTIVE PROBLEM LIST Hydrocele Malignant Neoplasm of Spermatic Cord (Hcc) Unspecified Hemorrhoids Without Mention of Complication Diverticulosis of Colon (Without Mention of Hemorrhage) Benign Prostatic Hyperplasia Without Lower Urinary Tract Symptoms Night Sweats Left Cervical Radiculopathy Chronic Left-Sided Low Back Pain With Left-Sided Sciatica Acromioclavicular Joint Injury, Right, Sequela Current Outpatient Prescriptions: meloxicam (MOBIC) 15 mg tablet TAKE 1 TABLET BY MOUTH ONCE DAILY. WITH FOOD. Disp: 90 tablet Rfl: 0 ibuprofen (ADVIL) 200 mg tablet Take 200 mg by mouth every 6 hours as needed. Disp: Rfl: No current facility-administered medications for this visit. ZOSTER VACCINE (SHINGRIX)(1 of 2) due on 01/04/2006 EXAM: BP 104/80 Pulse 68 Temp 36.6 ?C (97.8 ?F) (Tympanic) Resp 16 Wt 92.5 kg (204 lb) BMI 26.55 kg/m? Pleasant man in no acute distress. Alert and oriented all spheres. Normal affect and cognition. Speech normal. No deficits to learning or comprehension. Skin warm, dry, pink to lips and nailbeds. Normal turgor. Respirations regular and unlabored. Extrem: no clubbing, cyanosis, edema. Extremities are warm and pink with prompt capillary refill. Right shoulder Rm to 90 degrees active ROM in flexion and abduction. Passive ROM to 140 degrees with flexion and abduction. Positive lift off. Positive Hawkin's. Negative drop arm, empty can. Positive scratch. ASSESSMENT/PLAN: 1. Acromioclavicular joint injury, right, sequela - ICD9: 908.9, ICD10: S49.91XS (primary diagnosis) Following with Dr. Ricchetti Has not yet started PT 2. Rotator cuff tendonitis, right - ICD9: 726.10, ICD10: M75.81 Schedule PT ordered at last visit. F/U 2 weeks. Works slip Lauren Peacock PA-C CNOV Observed: 09/05/2017 Status: COMPLETED Source: [place] 8:[address] [facility] REPOSITORY Office Visit (FAMPWS) JUMA BLANC ([id number]) 1955 M Date Time Provider Department 09/05/17 8:40 AM Lauren PEACOCK) FAMPWS During your visit today, we recorded the following information about you: Temperature Pulse Respiration Blood pressure 97.8 degrees 68/minute 16/minute 104/80 Weight 92.5 kg Lauren Peacock PA-C 09/05/2017 9:46 AM Signed 62 year old male with c/o here for f/u on right shoulder. Shoulder is improving. Saw Dr. Alan who feels all r/t to injury ACJ. Attempted aspiration unsuccessfully. Very painful per patient. ROM has improved. Has pressure pain currently but no sharp pain as previous. Taking Ibuprofen. ROM remains limited. Unable to use with any weight. Hurts to brush teeth. Right eye kaleidoscope in peripheral vision around focal point in vision. Happened after last visit. Happens occasionally. 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 HISTORIES FAMILY HISTORY Problem Relation Age of Onset - Coronary Artery Disease Mother PR, CABG - transient ischemic attack [OTHER] Mother disoriented transiently - Heart Father 80 stent, CHF PAST MEDICAL HISTORY Diagnosis Date - Diverticulosis of colon (without mention of hemorrhage) Diverticulosis - Heartburn - Hydrocele - Internal hemorrhoids with other complication - Other chronic sinusitis - Unspecified hemorrhoids without mention of complication Hemorrhoids PAST SURGICAL HISTORY Procedure Laterality Date - COLONOSCOP W/ OR W/O [facility] SPEC 06/06/2003 Colonoscopy - COLONOSCOP W/ OR W/O [facility] SPEC 09/29/09 - COLONOSCOP W/ OR W/O [facility] SPEC 06/19/2015 Colonoscopy - FIX FLEX TENDON,FING/HAND,SECOND,EA right - HEMORRHOIDECTOMY, EXTNL; COMP - PAST SURGICAL HISTORY OF partial amputation tip right middle toe - PAST SURGICAL HISTORY OF 08/2005 hydrocele left testicle removed also - REPAIR ING HERNIA,5+Y/O,REDUCIBL Hernia repair, inguinal RIGHT Social History Marital status: Spouse name: Justine Years of education: 14 Number of children: 4 Occupational History Occupation Employer Comment [employer] Social History Main Topics Smoking status: Never Smoker Smokeless tobacco: Never Used Alcohol use: Yes Comment: 12 pack beer on weekends Drug use: No Sexual activity: Yes Partners with: Female ACTIVE PROBLEM LIST Hydrocele Malignant Neoplasm of Spermatic Cord (Hcc) Unspecified Hemorrhoids Without Mention of Complication Diverticulosis of Colon (Without Mention of Hemorrhage) Benign Prostatic Hyperplasia Without Lower Urinary Tract Symptoms Night Sweats Left Cervical Radiculopathy Chronic Left-Sided Low Back Pain With Left-Sided Sciatica Acromioclavicular Joint Injury, Right, Sequela Current Outpatient Prescriptions: meloxicam (MOBIC) 15 mg tablet TAKE 1 TABLET BY MOUTH ONCE DAILY. WITH FOOD. Disp: 90 tablet Rfl: 0 ibuprofen (ADVIL) 200 mg tablet Take 200 mg by mouth every 6 hours as needed. Disp: Rfl: No current facility-administered medications for this visit. ZOSTER VACCINE (SHINGRIX)(1 of 2) due on 01/04/2006 EXAM: BP 104/80 Pulse 68 Temp 36.6 ?C (97.8 ?F) (Tympanic) Resp 16 Wt 92.5 kg (204 lb) BMI 26.55 kg/m? Pleasant man in no acute distress. Alert and oriented all spheres. Normal affect and cognition. Speech normal. No deficits to learning or comprehension. Skin warm, dry, pink to lips and nailbeds. Normal turgor. Respirations regular and unlabored. Extrem: no clubbing, cyanosis, edema. Extremities are warm and pink with prompt capillary refill. Right shoulder Rm to 90 degrees active ROM in flexion and abduction. Passive ROM to 140 degrees with flexion and abduction. Positive lift off. Positive Hawkin's. Negative drop arm, empty can. Positive scratch. ASSESSMENT/PLAN: 1. Acromioclavicular joint injury, right, sequela - ICD9: 908.9, ICD10: S49.91XS (primary diagnosis) Following with Dr. Alan Has not yet started PT 2. Rotator cuff tendonitis, right - ICD9: 726.10, ICD10: M75.81 Schedule PT ordered at last visit. F/U 2 weeks. Works slip Lauren Peacock PA-C Referring Provider: Lauren PEACOCK (ROMERO) [[id number]] Allergies As of Date: 09/05/2017 Noted Allergy Reaction ZOSTRIX (CAPSAICIN) 06/04/2005 5 - Intolerance Comments: causes severe buring of skin Date Reviewed: 09/05/2017 Reviewed by: Darlyn Jay LPN - Fully Assessed Reason for Visit: Pain (Shoulder Pain) [1343] Cmt: right shoulder Primary Visit Diagnosis:Acromioclavicular joint injury, right, sequela [S49.91XS] Other Visit Diagnosis:Rotator cuff tendonitis, right [M75.81] Prescriptions as of 09/05/2017 Sig: MELOXICAM 15 MG TABLET TAKE 1 TABLET BY MOUTH ONCE D* IBUPROFEN 200 MG TABLET Take 200 mg by mouth every 6 * Problem List As Of Date 09/05/2017 Noted Resolved HYDROCELE [603] INVALID FOR* Medial epicondylitis of elbow [M77.00] INVALID FOR*12/02/2016 Pain in joint, site unspecified [M25.50] INVALID FOR*12/02/2016 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 HEMORRHOIDS NOS [K64.9] More... DIVERTICULOSIS OF COLON W/O BLEED [K57.30] More... Benign prostatic hyperplasia without lower urin*INVALID FOR* Right groin pain [R10.31] INVALID FOR*12/02/2016 Night sweats [R61] INVALID FOR* More... Shoulder pain [M25.519] INVALID FOR*12/02/2016 More... Left cervical radiculopathy [M54.12] INVALID FOR* Muscle spasm of left shoulder area [M62.838] INVALID FOR*12/02/2016 Personal history of colonic polyps [Z86.010] INVALID FOR*06/19/2015 Chronic left-sided low back pain with left-side*INVALID FOR* Acromioclavicular joint injury, right, sequela *INVALID FOR* Letter Text [facility] [address], [place] [address] Juma Blanc [address] [id number] Clinic #: [id number] 09/05/2017 To Whom it may concern, Juma Blanc was examined here for follow up on his chronic shoulder condition. He is making progress but is not able to lift with his right shoulder yet. We will continue [facility] physical therapy and his is under care of Dr. Alan, an dairy management specialist. He will continue off work with recheck in 2 weeks. Thank you, Milvia Peacock PA-C Encounter Status:Closed by Lauren PEACOCK PA-C on 09/05/17 SED RATE WESTERGREN Collected: 08/31/2017 Status: F Source: [place] 2:44 PM [facility] REPOSITORY TYPE CODE TESTS RESULT OUT OF REFERENCE UNITS RANGE LAB WSR 0-15 mm/hr Sed Rate Westergren 2 Performed By: #### WSR, CRP #### [facility] [address] [place] [address] C-REACTIVE PROTEIN Collected: 08/31/2017 Status: F Source: [place] 2:44 PM [facility] REPOSITORY TYPE CODE TESTS RESULT OUT OF REFERENCE UNITS RANGE LAB CRP <0.9 mg/dL C-Reactive 0.1 Protein Performed By: #### WSR, CRP #### [facility] [address] [place] [address] PROGRESS Observed: 08/31/2017 Status: COMPLETED Source: [place] 2:05 PM [facility] REPOSITORY HNO ID: [id number] Author: Maria Isabel Olvera Rt Service: (none) Author Type: (none) Type: Progress Notes Filed: 08/31/2017 2:05 PM Note Text: Radiology Service Progress Note PATIENT NAME: Juma Blanc DATE OF SERVICE: August 31, 2017 TIME: 2:05 PM PATIENT IDENTITY VERIFICATION COMPLETED USING TWO (2) METHODS: Patient confirmed name verbally and Date of . PATIENT GENDER DATA: Male PATIENT RELEVANT IMPLANT DATA REVIEWED: Not Applicable RADIOLOGY DEPARTMENT: General X-ray: Exam(s) Completed: Upper Extremity X-Ray(s): Shoulder, AP / TRUE AP / AXILLARY / SUPRA OUTLET right : PERIPHERAL IV DATA: Not applicable SIGNED BY: Maria Isabel Olvera Rt August 31, 2017 2:05 PM XR SHLDR >/=3V Observed: 08/31/2017 Status: F Source: [place] AP/SOTO AP/OTHR RT 2:03 PM [facility] REPOSITORY * * *Final Report* * * DATE OF EXAM: Aug 31 2017 2:03PM AOX 5253 - XR SHLDR >/=3V AP/SOTO AP/OTHR RT / PROCEDURE REASON: Unspecified injury of right shoulder and upper arm, sequela * * * * Physician Interpretation * * * * EXAMINATION: XR SHLDR >/=3V AP/SOTO AP/OTHR RT HISTORY: shoulder injury one month ago Unspecified injury of right shoulder and upper arm, sequela . TECHNIQUE: XR SHLDR >/=3V AP/SOTO AP/OTHR RT Laterality: RIGHT Number of different views (projections): 4 M: XB_1 COMPARISON: 08/02/2017 RESULT: The head of the clavicle is largely absent in comparison to the previous examination. If there has been no surgery appearances would be consistent with osteolysis likely related to trauma. No other significant abnormality or change.. IMPRESSION: Absence of the head of the clavicle either represents postsurgical change or posttraumatic osteolysis. Staff Accountant: SAMSON Transcribe Date/Time: Aug 31 2017 3:20P Dictated by : LUCAS WYNN MD This examination was interpreted and the report reviewed and electronically signed by: LUCAS WYNN MD on Aug 31 2017 3:22PM EST [id number] PROGRESS Observed: 08/31/2017 Status: COMPLETED Source: [place] 1:[address] [facility] REPOSITORY HNO ID: [id number] Author: Destiny Alan Service: (none) Author Type: Physician Type: Progress Notes Filed: 08/31/2017 4:49 PM Note Text: SHOULDER INITIAL CONSULT SERVICE DATE: 08/31/2017 PCP: Jose Back MD REFERRING PROVIDER: Angela Georges PA-C [address] [place] [facility] [id number] Consult requested for an opinion regarding the evaluation and treatment of the above. My final impression and recommendations will be communicated back to the requesting physician by way of the shared medical record or letter via [place] mail. CHIEF COMPLAINT: Right shoulder pain SUBJECTIVE HISTORY OF PRESENT ILLNESS: Juma presents today for initial evaluation regarding right shoulder complaints. As you know he is a 62-year-old dnhmj-suqv-nttnyosu white male whose had complaints in his right shoulder for approximately 4 weeks. He recalls working on his car at home on Mother's Day when he developed acute pain along the area of the right acromioclavicular joint. He may have felt a pop, but he is unclear if this occurred. 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 He has been out of work since that time due to this pain. He underwent a subacromial cortisone injection that did not provide lasting relief. His symptoms have been improving over the last 4 weeks, but he still has difficulty with raising the arm. He presents for further discussion on management. He denies the development of any significant swelling, ecchymosis, or redness over the shoulder. PROGRESSIVE SYMPTOMS: Pain impacting work Pain limiting ability to stay fit and healthy, sports or recreational activity Pain worsened by overhead activity/reaching PREVIOUS TREATMENT(S): Modified Activity Steroid Injections Right Shoulder NECK COMPLAINTS: None ACTIVE PROBLEM LIST Hydrocele Malignant Neoplasm of Spermatic Cord (Hcc) Unspecified Hemorrhoids Without Mention of Complication Diverticulosis of Colon (Without Mention of Hemorrhage) Benign Prostatic Hyperplasia Without Lower Urinary Tract Symptoms Night Sweats Left Cervical Radiculopathy Chronic Left-Sided Low Back Pain With Left-Sided Sciatica PAST MEDICAL HISTORY Diagnosis Date - Diverticulosis of colon (without mention of hemorrhage) Diverticulosis - Heartburn - Hydrocele - Internal hemorrhoids with other complication - Other chronic sinusitis - Unspecified hemorrhoids without mention of complication Hemorrhoids PAST SURGICAL HISTORY Procedure Laterality Date - COLONOSCOP W/ OR W/O [facility] SPEC 06/06/2003 Colonoscopy - COLONOSCOP W/ OR W/O BRS SPEC 09/29/09 - COLONOSCOP W/ OR W/O BRS SPEC 06/19/2015 Colonoscopy - FIX FLEX TENDON,FING/HAND,SECOND,EA right - HEMORRHOIDECTOMY, EXTNL; COMP - PAST SURGICAL HISTORY OF partial amputation tip right middle toe - PAST SURGICAL HISTORY OF 08/2005 hydrocele left testicle removed also - REPAIR ING HERNIA,5+Y/O,REDUCIBL Hernia repair, inguinal RIGHT FAMILY HISTORY Problem Relation Age of Onset - Coronary Artery Disease Mother PR, CABG - transient ischemic attack [OTHER] Mother disoriented transiently - Heart Father 80 stent, CHF Social History Marital status: Spouse name: Justine Years of education: 14 Number of children: 4 Occupational History Occupation Employer Comment [employer] Social History Main Topics Smoking status: Never Smoker Smokeless tobacco: Never Used Alcohol use: Yes Comment: 12 pack beer on weekends Drug use: No Sexual activity: Yes Partners with: Female ALLERGIES Allergen Reactions - Zostrix [Capsaicin] Intolerance causes severe buring of skin MEDICATIONS: ibuprofen (ADVIL) 200 mg tablet Take 200 mg by mouth every 6 hours as needed. meloxicam (MOBIC) 15 mg tablet TAKE 1 TABLET BY MOUTH ONCE DAILY. WITH FOOD. REVIEW OF SYMPTOMS: GENERAL: Negative HEENT: Negative CARDIOVASCULAR: Negative RESPIRATORY: Negative GASTROINTESTINAL: Negative GENITOURINARY: Negative NEUROLOGIC: Negative SKIN: Negative ENDOCRINE: Negative EYES: Negative PSYCHIATRIC: Negative HEMATOLOGIC/IMMUNOLOGIC: Negative MUSCULOSKELETAL: See HPI OBJECTIVE There were no vitals taken for this visit. PHYSICAL EXAMINATION: Physical examination today of the right shoulder shows no atrophy. There is no swelling, redness, or ecchymosis over the shoulder, including the acromioclavicular joint. There is no deformity. Range of motion testing shows: Passive forward elevation is to 140-150 on the right with pain, compared to 170 on the left. Active forward elevation is to 90 on the right limited by pain, compared to 170 on the left. Passive external rotation at the side is to 50-60 on the right, compared to 60 on the left. Active internal rotation is to the lower thoracic levels on the right, compared to the mid thoracic levels on the left. Strength testing of the right rotator cuff shows 5/5 strength with resisted external rotation at the side and 5/5 strength with resisted Krala's maneuver. There is pain with resisted Karla's maneuver. Lag signs are negative. Belly press testing is negative. There is pain with impingement maneuvers. There is pain at end-range motion. There is some tenderness to palpation at the acromioclavicular joint, but this is no severe. The right upper extremity is otherwise grossly neurovascularly intact to testing. Scapular examination is normal. RADIOGRAPHIC RESULTS: X-rays of the right shoulder from August 02, 2017 are available for review and show no acute abnormalities. There may be an incomplete fracture line along the acromion, but this is difficult to visualize. Repeat x-rays of the right shoulder taken today are available for review and show resorption at the distal clavicle. MRI of the right shoulder from August 17, 2017 is also available for review. In looking at these images there is no full thickness tearing in the rotator cuff. There is significant edema along the acromioclavicular joint with associated bony edema. Bloodwork is reviewed and shows a normal CRP from August 23, 2017 and a mildly elevated ESR of 27 from August 20, 2017. 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 He injured the right shoulder from straining it approximately 4 weeks ago. The possibility of a septic arthritis of his acromioclavicular joint was raised by his recent MRI. I have personally reviewed these images and there is extensive edema in the soft tissues and bone. His clinical exam does not show any concerning findings for infection, with no swelling or redness about the acromioclavicular joint and no micromotion pain or significant tenderness to palpation. However, his repeat x-rays taken today show evidence of distal clavicle osteolysis. We discussed that this x-ray finding may be posttraumatic in nature versus septic in nature. We discussed aspirating the acromioclavicular joint today to rule out concern for infection. He agrees with this plan. Therefore under sterile conditions, the right shoulder acromioclavicular joint was aspirated through a superior approach. No fluid was obtained. I would also recommend that Juma repeat his serum ESR and CRP to make sure that these have not elevated. I will be in touch with them regarding the results of these tests. He agrees with this plan. If any questions or concerns should arise he should not hesitate to call. SIGNATURE: Destiny Alan MD PATIENT NAME: Juma Blanc DATE: August 31, 2017 TIME: 1:13 PM PAGER: MICHAELA Observed: 08/31/2017 Status: COMPLETED Source: [place] 12:[address] [facility] REPOSITORY [facility] JUMA BLANC ([id number]) 1955 M Date Time Provider Department 08/31/17 12:45 PM DESTINY ALAN [facility] During your visit today, we recorded the following information about you: Destiny Alan MD 08/31/2017 4:49 PM Signed SHOULDER INITIAL CONSULT SERVICE DATE: 08/31/2017 PCP: Jose Back MD REFERRING PROVIDER: Angela Georges PA-C [address] [facility] [address] Consult requested for an opinion regarding the evaluation and treatment of the above. My final impression and recommendations will be communicated back to the requesting physician by way of the shared medical record or letter via [place] mail. CHIEF COMPLAINT: Right shoulder pain SUBJECTIVE HISTORY OF PRESENT ILLNESS: Juma presents today for initial evaluation regarding right shoulder complaints. As you know he is a 62-year-old helcy-lyql-vixsrzyl white male whose had complaints in his right shoulder for approximately 4 weeks. He recalls working on his car at home on Mother's Day when he developed acute pain along the area of the right acromioclavicular joint. He may have felt a pop, but he is unclear if this occurred. 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 He has been out of work since that time due to this pain. He underwent a subacromial cortisone injection that did not provide lasting relief. His symptoms have been improving over the last 4 weeks, but he still has difficulty with raising the arm. He presents for further discussion on management. He denies the development of any significant swelling, ecchymosis, or redness over the shoulder. PROGRESSIVE SYMPTOMS: Pain impacting work Pain limiting ability to stay fit and healthy, sports or recreational activity Pain worsened by overhead activity/reaching PREVIOUS TREATMENT(S): Modified Activity Steroid Injections Right Shoulder NECK COMPLAINTS: None ACTIVE PROBLEM LIST Hydrocele Malignant Neoplasm of Spermatic Cord (Hcc) Unspecified Hemorrhoids Without Mention of Complication Diverticulosis of Colon (Without Mention of Hemorrhage) Benign Prostatic Hyperplasia Without Lower Urinary Tract Symptoms Night Sweats Left Cervical Radiculopathy Chronic Left-Sided Low Back Pain With Left-Sided Sciatica PAST MEDICAL HISTORY Diagnosis Date - Diverticulosis of colon (without mention of hemorrhage) Diverticulosis - Heartburn - Hydrocele - Internal hemorrhoids with other complication - Other chronic sinusitis - Unspecified hemorrhoids without mention of complication Hemorrhoids PAST SURGICAL HISTORY Procedure Laterality Date - COLONOSCOP W/ OR W/O [facility] SPEC 06/06/2003 Colonoscopy - COLONOSCOP W/ OR W/O [facility] SPEC 09/29/09 - COLONOSCOP W/ OR W/O [facility] SPEC 06/19/2015 Colonoscopy - FIX FLEX TENDON,FING/HAND,SECOND,EA right - HEMORRHOIDECTOMY, EXTNL; COMP - PAST SURGICAL HISTORY OF partial amputation tip right middle toe - PAST SURGICAL HISTORY OF 08/2005 hydrocele left testicle removed also - REPAIR ING HERNIA,5+Y/O,REDUCIBL Hernia repair, inguinal RIGHT FAMILY HISTORY Problem Relation Age of Onset - Coronary Artery Disease Mother PR, CABG - transient ischemic attack [OTHER] Mother disoriented transiently - Heart Father 80 stent, CHF Social History Marital status: Spouse name: Justine Years of education: 14 Number of children: 4 Occupational History Occupation Employer Comment [employer] Social History Main Topics Smoking status: Never Smoker Smokeless tobacco: Never Used Alcohol use: Yes Comment: 12 pack beer on weekends Drug use: No Sexual activity: Yes Partners with: Female ALLERGIES Allergen Reactions - Zostrix [Capsaicin] Intolerance causes severe buring of skin MEDICATIONS: ibuprofen (ADVIL) 200 mg tablet Take 200 mg by mouth every 6 hours as needed. meloxicam (MOBIC) 15 mg tablet TAKE 1 TABLET BY MOUTH ONCE DAILY. WITH FOOD. REVIEW OF SYMPTOMS: GENERAL: Negative HEENT: Negative CARDIOVASCULAR: Negative RESPIRATORY: Negative GASTROINTESTINAL: Negative GENITOURINARY: Negative NEUROLOGIC: Negative SKIN: Negative ENDOCRINE: Negative EYES: Negative PSYCHIATRIC: Negative HEMATOLOGIC/IMMUNOLOGIC: Negative MUSCULOSKELETAL: See HPI OBJECTIVE There were no vitals taken for this visit. PHYSICAL EXAMINATION: Physical examination today of the right shoulder shows no atrophy. There is no swelling, redness, or ecchymosis over the shoulder, including the acromioclavicular joint. There is no deformity. Range of motion testing shows: Passive forward elevation is to 140-150 on the right with pain, compared to 170 on the left. Active forward elevation is to 90 on the right limited by pain, compared to 170 on the left. Passive external rotation at the side is to 50-60 on the right, compared to 60 on the left. Active internal rotation is to the lower thoracic levels on the right, compared to the mid thoracic levels on the left. Strength testing of the right rotator cuff shows 5/5 strength with resisted external rotation at the side and 5/5 strength with resisted Karla's maneuver. There is pain with resisted Karla's maneuver. Lag signs are negative. Belly press testing is negative. There is pain with impingement maneuvers. There is pain at end-range motion. There is some tenderness to palpation at the acromioclavicular joint, but this is no severe. The right upper extremity is otherwise grossly neurovascularly intact to testing. Scapular examination is normal. RADIOGRAPHIC RESULTS: X-rays of the right shoulder from August 02, 2017 are available for review and show no acute abnormalities. There may be an incomplete fracture line along the acromion, but this is difficult to visualize. Repeat x-rays of the right shoulder taken today are available for review and show resorption at the distal clavicle. MRI of the right shoulder from August 17, 2017 is also available for review. In looking at these images there is no full thickness tearing in the rotator cuff. There is significant edema along the acromioclavicular joint with associated bony edema. Bloodwork is reviewed and shows a normal CRP from August 23, 2017 and a mildly elevated ESR of 27 from August 20, 2017. 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 He injured the right shoulder from straining it approximately 4 weeks ago. The possibility of a septic arthritis of his acromioclavicular joint was raised by his recent MRI. I have personally reviewed these images and there is extensive edema in the soft tissues and bone. His clinical exam does not show any concerning findings for infection, with no swelling or redness about the acromioclavicular joint and no micromotion pain or significant tenderness to palpation. However, his repeat x-rays taken today show evidence of distal clavicle osteolysis. We discussed that this x-ray finding may be posttraumatic in nature versus septic in nature. We discussed aspirating the acromioclavicular joint today to rule out concern for infection. He agrees with this plan. Therefore under sterile conditions, the right shoulder acromioclavicular joint was aspirated through a superior approach. No fluid was obtained. I would also recommend that Juma repeat his serum ESR and CRP to make sure that these have not elevated. I will be in touch with them regarding the results of these tests. He agrees with this plan. If any questions or concerns should arise he should not hesitate to call. SIGNATURE: Destiny Alan MD PATIENT NAME: Juma Blanc DATE: August 31, 2017 TIME: 1:13 PM PAGER: Referring Provider: ANGELA GEORGES) [[id number]] Allergies As of Date: 08/31/2017 Noted Allergy Reaction ZOSTRIX (CAPSAICIN) 06/04/2005 5 - Intolerance Comments: causes severe buring of skin Date Reviewed: 08/22/2017 Reviewed by: Angela Georges (Pa) - Fully Assessed Primary Visit Diagnosis:Acromioclavicular joint injury, right, sequela [S49.91XS] Order(s):XR SHOULDER GENERAL 3V OR MORE AP/TRUE AP/OTHER RT [[id number]] Order #: [id number] FUTURE SED RATE WESTERGREN [SQWSR] Order #: [id number] FUTURE C-REACTIVE PROTEIN (CRP) [SQCRP] Order #: [id number] FUTURE Prescriptions as of 08/31/2017 Sig: IBUPROFEN 200 MG TABLET Take 200 mg by mouth every 6 * MELOXICAM 15 MG TABLET TAKE 1 TABLET BY MOUTH ONCE D* Problem List As Of Date 08/31/2017 Noted Resolved HYDROCELE [603] INVALID FOR* Medial epicondylitis of elbow [M77.00] INVALID FOR*12/02/2016 Pain in joint, site unspecified [M25.50] INVALID FOR*12/02/2016 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 HEMORRHOIDS NOS [K64.9] More... DIVERTICULOSIS OF COLON W/O BLEED [K57.30] More... Benign prostatic hyperplasia without lower urin*INVALID FOR* Right groin pain [R10.31] INVALID FOR*12/02/2016 Night sweats [R61] INVALID FOR* More... Shoulder pain [M25.519] INVALID FOR*12/02/2016 More... Left cervical radiculopathy [M54.12] INVALID FOR* Muscle spasm of left shoulder area [M62.838] INVALID FOR*12/02/2016 Personal history of colonic polyps [Z86.010] INVALID FOR*06/19/2015 Chronic left-sided low back pain with left-side*INVALID FOR* Encounter Status:Closed by DESTINY ALAN MD on 08/31/17 PROGRESS Observed: 08/22/2017 Status: COMPLETED Source: [place] 5:[address] [facility] REPOSITORY HNO ID: [id number] Author: Angela Georges (Pa) Service: (none) Author Type: Physician Tree Surgeon Helper Type: Progress Notes Filed: 08/26/2017 3:49 PM Note Text: Angela Georges PA-C Department of Orthopaedics Orthopaedics [address] [place] [address] Dept: [phone] Dept August 22, 2017 CHIEF COMPLAINT: New Patient (Right shoulder pain REF: Whit Peacock X-ray: 08/02/2017, MRI 08/17/2017) HPI: Mr. Juma Blanc is a 62 year old male. He presents with right shoulder pain that started insidiously about 2 and half weeks ago. The patient denies any known injury, but tells me he was doing a lot of work on his car a few prior to the onset of pain. The patient was seen by his primary care provider on August 02 and received a subacromial corticosteroid injection. He received no relief from the injection and an MRI was ordered. Pain is diffuse and worse with abduction of the arm. He has no pain at rest. Pain today is a 7 out of 10 aching. Patient is right hand dominant and works at [employer] does a lot of heavy lifting. The patient has been off work per note from his PCP since August 01. ASSESSMENT: R93.8 Abnormal MRI, shoulder (primary encounter diagnosis) M00.9 Pyogenic arthritis of right shoulder region, due to unspecified organism ([facility]) M25.511 Acute pain of right shoulder PLAN: Patient's MRI was turning for possible septic arthritis. Sedimentation rate was elevated, CRP was within normal limit. Initially I planned to have the patient follow-up for right shoulder aspiration. Upon further discussion with Dr. Esparza we decided it would be best to have patient evaluated by Dr. Alan. Mr. Juma Blanc was advised as to contrast therapies and/or to take analgesics/anti-inflammatories as needed and all contraindications were reviewed. OBJECTIVE: Mr. Juma Blanc is a pleasant 62 year old in no apparent distress. Gen:BP 110/66 Pulse 80 Ht 6' 1.5 (1.87m) Wt 202 lb (91.6kg) BMI 26.29 kg/(m2). nl development, non obese, no deformities ENT: Normocephalic, normal hearing, moist mucosa CV: Pulses:Radial= 2+ and symmetric, capillary refill < 2 secs, no peripheral edema/varicosities Skin: no rash, bruising or lesions. Good turgor. Psych: cooperative and appropriate, alert and oriented x 3, good mood and affect. Musculoskeletal: Supple range of motion of the cervical spine without pain. Spurling signs are negative. No atrophy of the deltoid and shoulder musculature. right shoulder is nontender to palpation over the SC joint, clavicle. tenderness to palpation at the right AC joint, anterior lateral corner of the shoulder and greater tuberosity. tender to palpation at the bicipital groove and coracoid. Active range of motion is 90* of forward elevation, 45* external rotation, and internal rotation to the low lumbar spine. Passive range of motion is 150*, 50*, respectively. No laxity with anterior and posterior stress. negative Neer and negative Daniels impingement signs. 5/5 strength with supraspinatus, infraspinatus and subscapularis. Sensation is intact in the axillary, radial, median and ulnar nerve distribution IMAGING: EXAM TITLE: MRI RIGHT SHOULDER: ? DATE: 08/17/2017 10:23 ? COMPARISON: None. ? CLINICAL INDICATION/HISTORY: Right shoulder pain ? TECHNIQUE: MRI of the right shoulder was performed as per routine protocol. ? FINDINGS: There is an abnormal appearance of the acromioclavicular joint. ?The cortical margins of the distal clavicle and adjacent acromion process are ill-defined and there appears to be fluid filling the joint and bulging slightly caudally into the ?subacromial space as seen on coronal images 13 and 14. ?There is an extensive amount of edema within the acromion and distal clavicle as well as throughout the periarticular soft tissues. ?Although the finding is nonspecific, it is worrisome for septic arthritis and appropriate follow-up is indicated. ? The remaining visualized bony structures appear unremarkable with the exception of ?minimal subcortical cystic change at the inferior glenoid rim. ? There is moderate supraspinatus and infraspinatus tendinosis. ?There may be very minimal interstitial partial tearing at the insertional fibers of the rotator cuff ?near the junction of the posterior supraspinatus and anterior infraspinatus tendons. ? There is moderate diffuse subscapularis tendinosis. ?The teres minor is normal. ? There is moderate intra-articular bicipital tendinosis. ?The tendon resides normally within the intertubercular groove. ? The inferior labrum is slightly irregular and diminutive, presumably related to degeneration. ?There is a sublabral foramen. ? There is mild chondromalacia at the inferior portion of the glenohumeral joint, overlying the above-mentioned subcortical geode formation at the inferior glenoid rim. ? There is a moderate volume of subacromial/subdeltoid fluid or bursitis. ? There is edematous-type infiltration noted within the anterior deltoid muscle, near the distal clavicle attachment. ? IMPRESSION: 1. ?Findings as discussed above at, and surrounding, the acromioclavicular joint are nonspecific, although are concerning for possible septic arthritis and appropriate follow-up is indicated. 2. ? Diffuse rotator cuff tendinosis along with minimal interstitial partial tearing of the distal fibers near the junction of the supraspinatus and infraspinatus tendons. 3. ?Intra-articular bicipital tendinosis. 4. ?Degenerated inferior glenoid labrum. ? ? Supporting Subjective Information Below: Past Medical History: PAST MEDICAL HISTORY Diagnosis Date - Diverticulosis of colon (without mention of hemorrhage) Diverticulosis - Heartburn - Hydrocele - Internal hemorrhoids with other complication - Other chronic sinusitis - Unspecified hemorrhoids without mention of complication Hemorrhoids Past Surgical History: PAST SURGICAL HISTORY Procedure Laterality Date - COLONOSCOP W/ OR W/O [facility] SPEC 06/06/2003 Colonoscopy - COLONOSCOP W/ OR W/O [facility] SPEC 09/29/09 - COLONOSCOP W/ OR W/O [facility] SPEC 06/19/2015 Colonoscopy - FIX FLEX TENDON,FING/HAND,SECOND,EA right - HEMORRHOIDECTOMY, EXTNL; COMP - PAST SURGICAL HISTORY OF partial amputation tip right middle toe - PAST SURGICAL HISTORY OF 08/2005 hydrocele left testicle removed also - REPAIR ING HERNIA,5+Y/O,REDUCIBL Hernia repair, inguinal RIGHT Family History: FAMILY HISTORY Problem Relation Age of Onset - Coronary Artery Disease Mother PR, CABG - transient ischemic attack [OTHER] Mother disoriented transiently - Heart Father 80 stent, CHF Social History:Social History Marital status: Spouse name: Justine Years of education: 14 Number of children: 4 Occupational History Occupation Employer Comment [employer] Social History Main Topics Smoking status: Never Smoker Smokeless tobacco: Never Used Alcohol use: Yes Comment: 12 pack beer on weekends Drug use: No Sexual activity: Yes Partners with: Female Medications: Current Outpatient Prescriptions: ibuprofen (ADVIL) 200 mg tablet Take 200 mg by mouth every 6 hours as needed. meloxicam (MOBIC) 15 mg tablet TAKE 1 TABLET BY MOUTH ONCE DAILY. WITH FOOD. HYDROcodone-acetaminophen (NORCO) 5-325 mg per tablet Take 1 tablet by mouth every 6 hours as needed for up to 28 days. No current facility-administered medications for this visit. Allergies: Zostrix [Capsaicin] ROS: General (negative for fatigue, malaise, weight loss/gain) HEENT (negative for headache, earache, recent vision changes, sinus pain, sore throat) Respiratory (no recent shortness of breath, hemoptysis) CV (negative for chest tightness, palpitations) Musculoskeletal (see HPI) Psych (no depression, anxiety) REFERRING PHYSICIAN: Mr. Juma Blanc was referred to me for consultation by the following physician. This consultation note will be sent to the following physician by either mail or electronic medical record. Lauren Peacock PA-C [id number] [facility] [address] Jose Back MD [address] [facility] [id number] This note was partially generated using [employer] voice recognition system, and there may be some incorrect words, spellings, and punctuation that were not noted in checking the note before saving. Angela Georges PA-C C-REACTIVE PROTEIN Collected: 08/22/2017 Status: F Source: [place] 2:[address] [facility] REPOSITORY TYPE CODE TESTS RESULT OUT OF REFERENCE UNITS RANGE LAB CRP <0.9 mg/dL C-Reactive 0.6 Protein Performed By: #### CRP #### [facility] [address] [place], [place] [address] PROGRESS Observed: 08/22/2017 Status: COMPLETED Source: [place] 1:[address] [facility] REPOSITORY HNO ID: [id number] Author: Lauren Quesada Ma Service: (none) Author Type: (none) Type: Progress Notes Filed: 08/26/2017 3:49 PM Note Text: AMB ROOMING INTAKE FLOWSHEET DATA Patient here today for right shoulder pain x 3 weeks. Noticed pain on Mother's Day when he was working on a car. He became more painful when going to work at [employer] and was doing a lot of heavy lifting irritated it more. He has been off work since 08/01/2017. He is right hand dominant. X-ray done at [facility] on 08/02/2017 and MRI done on 08/17/2017. He has no pain when he is not moving the arm. CNOV Observed: 08/22/2017 Status: COMPLETED Source: [place] 1:[address] [facility] REPOSITORY Office Visit (ORTHWS) JUMA BLANC ([id number]) 1955 M Date Time Provider Department 6/4/18 1:10 PM ANGELA GEORGES (PA) During your visit today, we recorded the following information about you: Pulse Blood pressure Weight Height 80/minute 110/66 91.6 kg 1.867 m Lauren Quesada Ma 08/26/2017 3:49 PM Signed AMB ROOMING INTAKE FLOWSHEET DATA Patient here today for right shoulder pain x 3 weeks. Noticed pain on Mother's Day when he was working on a car. He became more painful when going to work at [employer] and was doing a lot of heavy lifting irritated it more. He has been off work since 08/01/2017. He is right hand dominant. X-ray done at [facility] on 08/02/2017 and MRI done on 08/17/2017. He has no pain when he is not moving the arm. Angela Georges PA-C 08/26/2017 3:49 PM Signed Angela Georges PA-C Department of Orthopaedics Orthopaedics [address] [place] [id number] Dept: [phone] Dept August 22, 2017 CHIEF COMPLAINT: New Patient (Right shoulder pain REF: Whit Peacock X-ray: 08/02/2017, MRI 08/17/2017) HPI: Mr. Juma Blanc is a 62 year old male. He presents with right shoulder pain that started insidiously about 2 and half weeks ago. The patient denies any known injury, but tells me he was doing a lot of work on his car a few prior to the onset of pain. The patient was seen by his primary care provider on August 02 and received a subacromial corticosteroid injection. He received no relief from the injection and an MRI was ordered. Pain is diffuse and worse with abduction of the arm. He has no pain at rest. Pain today is a 7 out of 10 aching. Patient is right hand dominant and works at [employer] does a lot of heavy lifting. The patient has been off work per note from his PCP since August 01. ASSESSMENT: R93.8 Abnormal MRI, shoulder (primary encounter diagnosis) M00.9 Pyogenic arthritis of right shoulder region, due to unspecified organism (HCC) M25.511 Acute pain of right shoulder PLAN: Patient's MRI was turning for possible septic arthritis. Sedimentation rate was elevated, CRP was within normal limit. Initially I planned to have the patient follow-up for right shoulder aspiration. Upon further discussion with Dr. Esparza we decided it would be best to have patient evaluated by Dr. Alan. Mr. Juma Blanc was advised as to contrast therapies and/or to take analgesics/anti-inflammatories as needed and all contraindications were reviewed. OBJECTIVE: Mr. Juma Blanc is a pleasant 62 year old in no apparent distress. Gen:BP 110/66 Pulse 80 Ht 6' 1.5 (1.87m) Wt 202 lb (91.6kg) BMI 26.29 kg/(m2). nl development, non obese, no deformities ENT: Normocephalic, normal hearing, moist mucosa CV: Pulses:Radial= 2+ and symmetric, capillary refill < 2 secs, no peripheral edema/varicosities Skin: no rash, bruising or lesions. Good turgor. Psych: cooperative and appropriate, alert and oriented x 3, good mood and affect. Musculoskeletal: Supple range of motion of the cervical spine without pain. Spurling signs are negative. No atrophy of the deltoid and shoulder musculature. right shoulder is nontender to palpation over the SC joint, clavicle. tenderness to palpation at the right AC joint, anterior lateral corner of the shoulder and greater tuberosity. tender to palpation at the bicipital groove and coracoid. Active range of motion is 90* of forward elevation, 45* external rotation, and internal rotation to the low lumbar spine. Passive range of motion is 150*, 50*, respectively. No laxity with anterior and posterior stress. negative Neer and negative Daniels impingement signs. 5/5 strength with supraspinatus, infraspinatus and subscapularis. Sensation is intact in the axillary, radial, median and ulnar nerve distribution IMAGING: EXAM TITLE: MRI RIGHT SHOULDER: ? DATE: 08/17/2017 10:23 ? COMPARISON: None. ? CLINICAL INDICATION/HISTORY: Right shoulder pain ? TECHNIQUE: MRI of the right shoulder was performed as per routine protocol. ? FINDINGS: There is an abnormal appearance of the acromioclavicular joint. ?The cortical margins of the distal clavicle and adjacent acromion process are ill-defined and there appears to be fluid filling the joint and bulging slightly caudally into the ?subacromial space as seen on coronal images 13 and 14. ?There is an extensive amount of edema within the acromion and distal clavicle as well as throughout the periarticular soft tissues. ?Although the finding is nonspecific, it is worrisome for septic arthritis and appropriate follow-up is indicated. ? The remaining visualized bony structures appear unremarkable with the exception of ?minimal subcortical cystic change at the inferior glenoid rim. ? There is moderate supraspinatus and infraspinatus tendinosis. ?There may be very minimal interstitial partial tearing at the insertional fibers of the rotator cuff ?near the junction of the posterior supraspinatus and anterior infraspinatus tendons. ? There is moderate diffuse subscapularis tendinosis. ?The teres minor is normal. ? There is moderate intra-articular bicipital tendinosis. ?The tendon resides normally within the intertubercular groove. ? The inferior labrum is slightly irregular and diminutive, presumably related to degeneration. ?There is a sublabral foramen. ? There is mild chondromalacia at the inferior portion of the glenohumeral joint, overlying the above-mentioned subcortical geode formation at the inferior glenoid rim. ? There is a moderate volume of subacromial/subdeltoid fluid or bursitis. ? There is edematous-type infiltration noted within the anterior deltoid muscle, near the distal clavicle attachment. ? IMPRESSION: 1. ?Findings as discussed above at, and surrounding, the acromioclavicular joint are nonspecific, although are concerning for possible septic arthritis and appropriate follow-up is indicated. 2. ? Diffuse rotator cuff tendinosis along with minimal interstitial partial tearing of the distal fibers near the junction of the supraspinatus and infraspinatus tendons. 3. ?Intra-articular bicipital tendinosis. 4. ?Degenerated inferior glenoid labrum. ? ? Supporting Subjective Information Below: Past Medical History: PAST MEDICAL HISTORY Diagnosis Date - Diverticulosis of colon (without mention of hemorrhage) Diverticulosis - Heartburn - Hydrocele - Internal hemorrhoids with other complication - Other chronic sinusitis - Unspecified hemorrhoids without mention of complication Hemorrhoids Past Surgical History: PAST SURGICAL HISTORY Procedure Laterality Date - COLONOSCOP W/ OR W/O [facility] SPEC 06/06/2003 Colonoscopy - COLONOSCOP W/ OR W/O [facility] SPEC 09/29/09 - COLONOSCOP W/ OR W/O [facility] SPEC 06/19/2015 Colonoscopy - FIX FLEX TENDON,FING/HAND,SECOND,EA right - HEMORRHOIDECTOMY, EXTNL; COMP - PAST SURGICAL HISTORY OF partial amputation tip right middle toe - PAST SURGICAL HISTORY OF 08/2005 hydrocele left testicle removed also - REPAIR ING HERNIA,5+Y/O,REDUCIBL Hernia repair, inguinal RIGHT Family History: FAMILY HISTORY Problem Relation Age of Onset - Coronary Artery Disease Mother PR, CABG - transient ischemic attack [OTHER] Mother disoriented transiently - Heart Father 80 stent, CHF Social History:Social History Marital status: Spouse name: Justine Years of education: 14 Number of children: 4 Occupational History Occupation Employer Comment [employer] Social History Main Topics Smoking status: Never Smoker Smokeless tobacco: Never Used Alcohol use: Yes Comment: 12 pack beer on weekends Drug use: No Sexual activity: Yes Partners with: Female Medications: Current Outpatient Prescriptions: ibuprofen (ADVIL) 200 mg tablet Take 200 mg by mouth every 6 hours as needed. meloxicam (MOBIC) 15 mg tablet TAKE 1 TABLET BY MOUTH ONCE DAILY. WITH FOOD. HYDROcodone-acetaminophen (NORCO) 5-325 mg per tablet Take 1 tablet by mouth every 6 hours as needed for up to 28 days. No current facility-administered medications for this visit. Allergies: Zostrix [Capsaicin] ROS: General (negative for fatigue, malaise, weight loss/gain) HEENT (negative for headache, earache, recent vision changes, sinus pain, sore throat) Respiratory (no recent shortness of breath, hemoptysis) CV (negative for chest tightness, palpitations) Musculoskeletal (see HPI) Psych (no depression, anxiety) REFERRING PHYSICIAN: Mr. Juma Blanc was referred to me for consultation by the following physician. This consultation note will be sent to the following physician by either mail or electronic medical record. Lauren Peacock PA-C [address] [facility] [address] Jose Back MD [address] [facility] [id number] This note was partially generated using [employer] voice recognition system, and there may be some incorrect words, spellings, and punctuation that were not noted in checking the note before saving. Angela Georges PA-C Referring Provider: Lauren PEACOCK (ROMERO) [[id number]] Allergies As of Date: 08/22/2017 Noted Allergy Reaction ZOSTRIX (CAPSAICIN) 06/04/2005 5 - Intolerance Comments: causes severe buring of skin Date Reviewed: 08/22/2017 Reviewed by: Angela Georges (Pa) - Fully Assessed Reason for Visit: New Patient [172] Cmt: Right shoulder pain REF: LazaroNitin Peacock X-ray: 08/02/2017, MRI 08/17/2017 Primary Visit Diagnosis:Abnormal MRI, shoulder [R93.8] Other Visit Diagnoses:Pyogenic arthritis of right shoulder region, due to unspecified organism (HCC) [M00.9] Acute pain of right shoulder [M25.511] Prescriptions as of 08/22/2017 Sig: IBUPROFEN 200 MG TABLET Take 200 mg by mouth every 6 * MELOXICAM 15 MG TABLET TAKE 1 TABLET BY MOUTH ONCE D* HYDROCODONE 5 MG-ACETAMINOPHE* Take 1 tablet by mouth every * Problem List As Of Date 08/22/2017 Noted Resolved HYDROCELE [603] INVALID FOR* Medial epicondylitis of elbow [M77.00] INVALID FOR*12/02/2016 Pain in joint, site unspecified [M25.50] INVALID FOR*12/02/2016 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 HEMORRHOIDS NOS [K64.9] More... DIVERTICULOSIS OF COLON W/O BLEED [K57.30] More... Benign prostatic hyperplasia without lower urin*INVALID FOR* Right groin pain [R10.31] INVALID FOR*12/02/2016 Night sweats [R61] INVALID FOR* More... Shoulder pain [M25.519] INVALID FOR*12/02/2016 More... Left cervical radiculopathy [M54.12] INVALID FOR* Muscle spasm of left shoulder area [M62.838] INVALID FOR*12/02/2016 Personal history of colonic polyps [Z86.010] INVALID FOR*06/19/2015 Chronic left-sided low back pain with left-side*INVALID FOR* Follow-up and Disposition History Recorded Encounter Status:Closed by ANGELA GEORGES PA-C on 08/26/17 PROGRESS Observed: 08/22/2017 Status: COMPLETED Source: [place] 12[facility]30 PM [facility] RE[facility] HNO ID: [id number] Author: Lauren Mchgee (Romero) Ayush Service: (none) Author Type: Physician Tree Surgeon Helper Type: Progress Notes Filed: 08/22/2017 6:47 PM Note Text: 62 year old male with c/o here for follow up on shoulder. CBC and sed rate were in normal/ low range. Reviewed MRI report again with patient. Low suspicion septic joint but will need Dr. Esparza to review. Is improving slowly but less pain. Has sharp pain occasionally but treating with ibuprofen. Patient is not taking tramadol although he has some left. HISTORIES FAMILY HISTORY Problem Relation Age of Onset - Coronary Artery Disease Mother PR, CABG - transient ischemic attack [OTHER] Mother disoriented transiently - Heart Father 80 stent, CHF PAST MEDICAL HISTORY Diagnosis Date - Diverticulosis of colon (without mention of hemorrhage) Diverticulosis - Heartburn - Hydrocele - Internal hemorrhoids with other complication - Other chronic sinusitis - Unspecified hemorrhoids without mention of complication Hemorrhoids PAST SURGICAL HISTORY Procedure Laterality Date - COLONOSCOP W/ OR W/O [facility] SPEC 06/06/2003 Colonoscopy - COLONOSCOP W/ OR W/O [facility] SPEC 09/29/09 - COLONOSCOP W/ OR W/O [facility] SPEC 06/19/2015 Colonoscopy - FIX FLEX TENDON,FING/HAND,SECOND,EA right - HEMORRHOIDECTOMY, EXTNL; COMP - PAST SURGICAL HISTORY OF partial amputation tip right middle toe - PAST SURGICAL HISTORY OF 08/2005 hydrocele left testicle removed also - REPAIR ING HERNIA,5+Y/O,REDUCIBL Hernia repair, inguinal RIGHT Social History Marital status: Spouse name: Justine Years of education: 14 Number of children: 4 Occupational History Occupation Employer [employer] Social History Main Topics Smoking status: Never Smoker Smokeless tobacco: Never Used Alcohol use: Yes Comment: 12 pack beer on weekends Drug use: No Sexual activity: Yes Partners with: Female ACTIVE PROBLEM LIST Hydrocele Malignant Neoplasm of Spermatic Cord (Hcc) Unspecified Hemorrhoids Without Mention of Complication Diverticulosis of Colon (Without Mention of Hemorrhage) Benign Prostatic Hyperplasia Without Lower Urinary Tract Symptoms Night Sweats Left Cervical Radiculopathy Chronic Left-Sided Low Back Pain With Left-Sided Sciatica Current Outpatient Prescriptions: ibuprofen (ADVIL) 200 mg tablet Take 200 mg by mouth every 6 hours as needed. Disp: Rfl: meloxicam (MOBIC) 15 mg tablet TAKE 1 TABLET BY MOUTH ONCE DAILY. WITH FOOD. (Patient not taking: Reported on 08/22/2017) Disp: 90 tablet Rfl: 0 HYDROcodone-acetaminophen (NORCO) 5-325 mg per tablet Take 1 tablet by mouth every 6 hours as needed for up to 28 days. Disp: 28 tablet Rfl: 0 No current facility-administered medications for this visit. There are no preventive care reminders to display for this patient. EXAM: BP 110/66 Pulse 80 Resp 16 Wt 91.6 kg (202 lb) BMI 27.02 kg/m? Pleasant Adult male in no acute distress. Alert and oriented all spheres. Normal affect and cognition. Speech normal. No deficits to learning or comprehension. Skin warm, dry, pink to lips and nailbeds. Normal turgor. Respirations regular and unlabored. Extrem: no clubbing, cyanosis, edema. Extremities are warm and pink with prompt capillary refill. Patient has some improvement in range of motion with inability to achieve approximately 60? of flexion, 70? of abduction, circumduction in the range of about 45-60? depending. Patient still is unable to reach behind his hip. He is nontender today on palpation over the acromioclavicular joints. There is no evidence of swelling, erythema. ASSESSMENT/PLAN: 1. Right rotator cuff tendonitis - ICD9: 726.10, ICD10: M75.81 Continue work absence over the next 2 weeks as patient is not able to do his job. Recommended we start physical therapy which will likely be recommended by orthopedics. Patient is following there this afternoon. - CONSULT TO PHYSICAL THERAPY ROMERO Spears Observed: 08/22/2017 Status: COMPLETED Source: [place] 11:[address] [facility] REPOSITORY Office Visit (FAMPWS) JUMA BLANC ([id number]) 1955 M Date Time Provider Department 08/22/17 11:40 AM Lauren PEACOCK) ERIKA During your visit today, we recorded the following information about you: Pulse Respiration Blood pressure Weight 80/minute 16/minute 110/66 91.6 kg M Rose Marie Peacock PA-C 08/22/2017 6:47 PM Signed 62 year old male with c/o here for follow up on shoulder. CBC and sed rate were in normal/ low range. Reviewed MRI report again with patient. Low suspicion septic joint but will need Dr. Esparza to review. Is improving slowly but less pain. Has sharp pain occasionally but treating with ibuprofen. Patient is not taking tramadol although he has some left. HISTORIES FAMILY HISTORY Problem Relation Age of Onset - Coronary Artery Disease Mother PR, CABG - transient ischemic attack [OTHER] Mother disoriented transiently - Heart Father 80 stent, CHF PAST MEDICAL HISTORY Diagnosis Date - Diverticulosis of colon (without mention of hemorrhage) Diverticulosis - Heartburn - Hydrocele - Internal hemorrhoids with other complication - Other chronic sinusitis - Unspecified hemorrhoids without mention of complication Hemorrhoids PAST SURGICAL HISTORY Procedure Laterality Date - COLONOSCOP W/ OR W/O [facility] SPEC 06/06/2003 Colonoscopy - COLONOSCOP W/ OR W/O [facility] SPEC 09/29/09 - COLONOSCOP W/ OR W/O [facility] SPEC 06/19/2015 Colonoscopy - FIX FLEX TENDON,FING/HAND,SECOND,EA right - HEMORRHOIDECTOMY, EXTNL; COMP - PAST SURGICAL HISTORY OF partial amputation tip right middle toe - PAST SURGICAL HISTORY OF 08/2005 hydrocele left testicle removed also - REPAIR ING HERNIA,5+Y/O,REDUCIBL Hernia repair, inguinal RIGHT Social History Marital status: Spouse name: Justine Years of education: 14 Number of children: 4 Occupational History Occupation Employer Comment [employer] Social History Main Topics Smoking status: Never Smoker Smokeless tobacco: Never Used Alcohol use: Yes Comment: 12 pack beer on weekends Drug use: No Sexual activity: Yes Partners with: Female ACTIVE PROBLEM LIST Hydrocele Malignant Neoplasm of Spermatic Cord (Hcc) Unspecified Hemorrhoids Without Mention of Complication Diverticulosis of Colon (Without Mention of Hemorrhage) Benign Prostatic Hyperplasia Without Lower Urinary Tract Symptoms Night Sweats Left Cervical Radiculopathy Chronic Left-Sided Low Back Pain With Left-Sided Sciatica Current Outpatient Prescriptions: ibuprofen (ADVIL) 200 mg tablet Take 200 mg by mouth every 6 hours as needed. Disp: Rfl: meloxicam (MOBIC) 15 mg tablet TAKE 1 TABLET BY MOUTH ONCE DAILY. WITH FOOD. (Patient not taking: Reported on 08/22/2017) Disp: 90 tablet Rfl: 0 HYDROcodone-acetaminophen (NORCO) 5-325 mg per tablet Take 1 tablet by mouth every 6 hours as needed for up to 28 days. Disp: 28 tablet Rfl: 0 No current facility-administered medications for this visit. There are no preventive care reminders to display for this patient. EXAM: BP 110/66 Pulse 80 Resp 16 Wt 91.6 kg (202 lb) BMI 27.02 kg/m? Pleasant Adult male in no acute distress. Alert and oriented all spheres. Normal affect and cognition. Speech normal. No deficits to learning or comprehension. Skin warm, dry, pink to lips and nailbeds. Normal turgor. Respirations regular and unlabored. Extrem: no clubbing, cyanosis, edema. Extremities are warm and pink with prompt capillary refill. Patient has some improvement in range of motion with inability to achieve approximately 60? of flexion, 70? of abduction, circumduction in the range of about 45-60? depending. Patient still is unable to reach behind his hip. He is nontender today on palpation over the acromioclavicular joints. There is no evidence of swelling, erythema. ASSESSMENT/PLAN: 1. Right rotator cuff tendonitis - ICD9: 726.10, ICD10: M75.81 Continue work absence over the next 2 weeks as patient is not able to do his job. Recommended we start physical therapy which will likely be recommended by orthopedics. Patient is following there this afternoon. - CONSULT TO PHYSICAL THERAPY Lauren Peacock PA-C Referring Provider: Lauren PEACOCK) [[id number]] Allergies As of Date: 08/22/2017 Noted Allergy Reaction ZOSTRIX (CAPSAICIN) 06/04/2005 5 - Intolerance Comments: causes severe buring of skin Date Reviewed: 08/22/2017 Reviewed by: Angeal Georges (Pa) - Fully Assessed Reason for Visit: Follow-up Shoulder Pain [1214] Cmt: right shoulder Primary Visit Diagnosis:Right rotator cuff tendonitis [M75.81] Order(s):CONSULT TO PHYSICAL THERAPY [9032] Order #: [id number]: 1 Prescriptions as of 08/22/2017 Sig: IBUPROFEN 200 MG TABLET Take 200 mg by mouth every 6 * MELOXICAM 15 MG TABLET TAKE 1 TABLET BY MOUTH ONCE D* HYDROCODONE 5 MG-ACETAMINOPHE* Take 1 tablet by mouth every * Problem List As Of Date 08/22/2017 Noted Resolved HYDROCELE [603] INVALID FOR* Medial epicondylitis of elbow [M77.00] INVALID FOR*12/02/2016 Pain in joint, site unspecified [M25.50] INVALID FOR*12/02/2016 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 HEMORRHOIDS NOS [K64.9] More... DIVERTICULOSIS OF COLON W/O BLEED [K57.30] More... Benign prostatic hyperplasia without lower urin*INVALID FOR* Right groin pain [R10.31] INVALID FOR*12/02/2016 Night sweats [R61] INVALID FOR* More... Shoulder pain [M25.519] INVALID FOR*12/02/2016 More... Left cervical radiculopathy [M54.12] INVALID FOR* Muscle spasm of left shoulder area [M62.838] INVALID FOR*12/02/2016 Personal history of colonic polyps [Z86.010] INVALID FOR*06/19/2015 Chronic left-sided low back pain with left-side*INVALID FOR* Letter Text [facility] [address], [place] [address] Juma Blanc [address] [place] [address] Clinic #: [id number] 08/22/2017 To Whom it may concern, Juma Blanc was examined here today and will need to remain off work for an additional 2 weeks. He is seeing an dairy management specialist today. He has been referred to physical therapy we will re-evaluate in 2 weeks. Thank you, Milvia Peacock PA-C Encounter Status:Closed by Lauren PEACOCK PA-C on 08/22/17 CBC AND DIFFERENTIAL Collected: 08/19/2017 Status: F Source: [place] [facility] 1:30 PM [facility] REPOSITORY TYPE CODE TESTS RESULT OUT OF REFERENCE UNITS RANGE LAB WBC 3.70-11.00 k/uL WBC 7.44 LAB RBC 4.20-6.00 m/uL RBC 5.08 LAB HGB 13.0-17.0 g/dL Hemoglobin 15.2 LAB HCT 39.0-51.0 % Hematocrit 48.6 LAB MCV 80.0-100.0 fL MCV 95.7 LAB MCH 26.0-34.0 pG MCH 29.9 LAB MCHC 30.5-36.0 g/dL MCHC 31.3 LAB RDWCV 11.5-15.0 % RDW-CV 12.8 LAB PLTCT 150-400 k/uL Platelet Count 283 LAB MPV 9.0-12.7 fL MPV 10.1 LAB ANEUT % Neut% 71.1 LAB AANEUT 1.45-7.50 k/uL Abs Neut 5.29 LAB ALYMP % Lymph% 20.7 LAB AALYMP 1.00-4.00 k/uL Abs Lymph 1.54 LAB AMONO % Juncos% 6.2 LAB AAMONO <0.87 k/uL Abs Juncos 0.46 LAB AEOS % Eosin% 1.5 LAB AAEOS <0.46 k/uL Abs Eosin 0.11 LAB ABASO % Baso% 0.5 LAB AABASO <0.11 k/uL Abs Baso 0.04 LAB AUNRBC 0 /100 WBC NRBCs 0.0 LAB ABNRBC <0.01 k/uL Absolute nRBC <0.01 LAB DTYP DTYPE Auto Diff Performed By: #### CBCDIF, WSR #### [facility] [address] [place] [id number] SED RATE WESTERGREN Collected: 08/19/2017 Status: F Source: [place] [facility] 1:30 PM [facility] REPOSITORY TYPE CODE TESTS RESULT OUT OF REFERENCE UNITS RANGE LAB WSR 0-15 mm/hr Sed Rate High [place]gren 27 Performed By: #### CBCDIF, WSR #### [facility] [address] [place], [place] [address] MRI SHOULDER WO IV Observed: 08/17/2017 Status: F Source: [facility] RT 11:07 AM [facility] REPOSITORY Performed at [facility] APPROVED BY: Jonatan Viera MD EXAM TITLE: MRI RIGHT SHOULDER: DATE: 08/17/2017 10:23 COMPARISON: None. CLINICAL INDICATION/HISTORY: Right shoulder pain TECHNIQUE: MRI of the right shoulder was performed as per routine protocol. FINDINGS: There is an abnormal appearance of the acromioclavicular joint. The cortical margins of the distal clavicle and adjacent acromion process are ill-defined and there appears to be fluid filling the joint and bulging slightly caudally into the subacromial space as seen on coronal images 13 and 14. There is an extensive amount of edema within the acromion and distal clavicle as well as throughout the pe riarticular soft tissues. Although the finding is nonspecific, it is worrisome for septic arthritis and appropriate follow-up is indicated. The remaining visualized bony structures appear unremarkable with the exception of minimal subcortical cystic change at the inferior glenoid rim. There is moderate supraspinatus and infraspinatus tendinosis. There may be very minimal interstitial partial tearing at the insertional fibers of the rotator cuff near the junction of the posterior sup raspinatus and anterior infraspinatus tendons. There is moderate diffuse subscapularis tendinosis. The teres minor is normal. There is moderate intra-articular bicipital tendinosis. The tendon resides normally within the intertubercular groove. The inferior labrum is slightly irregular and diminutive, presumably related to degeneration. There is a sublabral foramen. There is mild chondromalacia at the inferior portion of the glenohumeral joint, overlying the above-mentioned subcortical geode formation at the inferior glenoid rim. There is a moderate volume of subacromial/subdeltoid fluid or bursitis. There is edematous-type infiltration noted within the anterior deltoid muscle, near the distal clavicle attachment. IMPRESSION: 1. Findings as discussed above at, and surrounding, the acromioclavicular joint are nonspecific, although are concerning for possible septic arthritis and appropriate follow-up is indicated. 2. Diffuse rotator cuff tendinosis along with minimal interstitial partial tearing of the distal fibers near the junction of the supraspinatus and infraspinatus tendons. 3. Intra-articular bicipital tendinosis. 4. Degenerated inferior glenoid labrum. Findings are submitted to be conveyed as a wet reading to the ordering physician. PROGRESS Observed: 08/08/2017 Status: COMPLETED Source: [facility] 3:13 PM [facility] REPOSITORY HNO ID: [id number] Author: Lauren Mcghee (Romero) Ayush Service: (none) Author Type: Physician Tree Surgeon Helper Type: Progress Notes Filed: 08/08/2017 6:30 PM Note Text: 62 year old male with c/o of no improvement after sterioid injection in anterior right shoulder pain. Denies fevers or chills. Pain is better in the morning and significantly worse in afternoon. Pain is dulled not relieved with pain medication. He is unable to move shoulder without pain in any direction. Wears sling constantly. Denies any new distal paresthesias. Taking approximately 3 Saxon/ day with occasional Aleve intermittently. Describes pain as stabbing and piercing. No pain at rest. Radiates up to right neck to ear. Is supposed to return to work tomorrow. HISTORIES FAMILY HISTORY Problem Relation Age of Onset - Coronary Artery Disease Mother PR, CABG - transient ischemic attack [OTHER] Mother disoriented transiently - Heart Father 80 stent, CHF PAST MEDICAL HISTORY Diagnosis Date - Diverticulosis of colon (without mention of hemorrhage) Diverticulosis - Heartburn - Hydrocele - Internal hemorrhoids with other complication - Other chronic sinusitis - Unspecified hemorrhoids without mention of complication Hemorrhoids PAST SURGICAL HISTORY Procedure Laterality Date - COLONOSCOP W/ OR W/O [facility] SPEC 06/06/2003 Colonoscopy - COLONOSCOP W/ OR W/O [facility] SPEC 09/29/09 - COLONOSCOP W/ OR W/O [facility] SPEC 06/19/2015 Colonoscopy - FIX FLEX TENDON,FING/HAND,SECOND,EA right - HEMORRHOIDECTOMY, EXTNL; COMP - PAST SURGICAL HISTORY OF partial amputation tip right middle toe - PAST SURGICAL HISTORY OF 08/2005 hydrocele left testicle removed also - REPAIR ING HERNIA,5+Y/O,REDUCIBL Hernia repair, inguinal RIGHT Social History Marital status: Spouse name: Justine Years of education: 14 Number of children: 4 Occupational History Occupation Employer Comment [employer] Social History Main Topics Smoking status: Never Smoker Smokeless tobacco: Never Used Alcohol use: Yes Comment: 12 pack beer on weekends Drug use: No Sexual activity: Yes Partners with: Female ACTIVE PROBLEM LIST Hydrocele Malignant Neoplasm of Spermatic Cord (Hcc) Unspecified Hemorrhoids Without Mention of Complication Diverticulosis of Colon (Without Mention of Hemorrhage) Benign Prostatic Hyperplasia Without Lower Urinary Tract Symptoms Night Sweats Left Cervical Radiculopathy Chronic Left-Sided Low Back Pain With Left-Sided Sciatica Current Outpatient Prescriptions: HYDROcodone-acetaminophen (NORCO) 5-325 mg per tablet Take 1 tablet by mouth every 6 hours as needed for up to 28 days. Disp: 28 tablet Rfl: 0 meloxicam (MOBIC) 15 mg tablet TAKE 1 TABLET BY MOUTH ONCE DAILY. WITH FOOD. Disp: 90 tablet Rfl: 0 Current Facility-Administered Medications: triamcinolone acetonide 40 mg injection (KENALOG 40) 40 mg INTRA-ARTICULAR ONCE M Rose Marie Ribeiro) Ayush bupivacaine 0.5 % 10 mg injection (MARCAINE MDV) 2 mL INTRA- ARTICULAR ONCE M Rose Marie Ribeiro) Ayush There are no preventive care reminders to display for this patient. EXAM: BP 112/74 Pulse 80 Temp 36.5 ?C (97.7 ?F) (Tympanic) Resp 16 Wt 92.1 kg (203 lb) BMI 27.15 kg/m? Pleasant adult male in no acute distress. Alert and oriented all spheres. Normal affect and cognition. Speech normal. No deficits to learning or comprehension. Skin warm, dry, pink to lips and nailbeds. Normal turgor. Respirations regular and unlabored. MSK- Neck ROM intact slightly limited to pain with left lateral motion. Tender to palpation along right acromion and anterior joint line. Right shoulder almost completely inhibited in ROM due to pain. Able to move approximately 10 degrees in flexion/extension. Approximately 5 degrees in abduction and unwilling to adduct across body due to pain. Distal pulses and sensation to light touch intact. Extrem: no clubbing, cyanosis, edema. Extremities are warm and pink with prompt capillary refill <2s bilaterally. ASSESSMENT/PLAN: 1. Disorder of ligament of right shoulder - ICD9: 728.4, ICD10: M24.211 - Continue to wear sling with wrist supported as needed for comfort - Encouraged right should exercises and movements to prevent frozen shoulder adhesion - MRI SHOULDER WO IVCON RT - CONSULT TO ORTHOPAEDICS - Too early to refill Saxon: call when rx is out. - Work slip x 2 weeks. ROMERO Spears Observed: 08/08/2017 Status: COMPLETED Source: [place] [facility] 2:20 PM [facility] REPOSITORY Office Visit (FAMPWS) JUMA BLANC ([id number]) 1955 M Date Time Provider Department 08/08/17 2:20 PM Lauren PEACOCK) [facility] During your visit today, we recorded the following information about you: Temperature Pulse Respiration Blood pressure 97.7 degrees 80/minute 16/minute 112/74 Weight 92.1 kg M Rose Marie Peacock PA-C 08/08/2017 6:30 PM Signed 62 year old male with c/o of no improvement after sterioid injection in anterior right shoulder pain. Denies fevers or chills. Pain is better in the morning and significantly worse in afternoon. Pain is dulled not relieved with pain medication. He is unable to move shoulder without pain in any direction. Wears sling constantly. Denies any new distal paresthesias. Taking approximately 3 Saxon/ day with occasional Aleve intermittently. Describes pain as stabbing and piercing. No pain at rest. Radiates up to right neck to ear. Is supposed to return to work tomorrow. HISTORIES FAMILY HISTORY Problem Relation Age of Onset - Coronary Artery Disease Mother PR, CABG - transient ischemic attack [OTHER] Mother disoriented transiently - Heart Father 80 stent, CHF PAST MEDICAL HISTORY Diagnosis Date - Diverticulosis of colon (without mention of hemorrhage) Diverticulosis - Heartburn - Hydrocele - Internal hemorrhoids with other complication - Other chronic sinusitis - Unspecified hemorrhoids without mention of complication Hemorrhoids PAST SURGICAL HISTORY Procedure Laterality Date - COLONOSCOP W/ OR W/O [facility] SPEC 06/06/2003 Colonoscopy - COLONOSCOP W/ OR W/O [facility] SPEC 09/29/09 - COLONOSCOP W/ OR W/O [facility] SPEC 06/19/2015 Colonoscopy - FIX FLEX TENDON,FING/HAND,SECOND,EA right - HEMORRHOIDECTOMY, EXTNL; COMP - PAST SURGICAL HISTORY OF partial amputation tip right middle toe - PAST SURGICAL HISTORY OF 08/2005 hydrocele left testicle removed also - REPAIR ING HERNIA,5+Y/O,REDUCIBL Hernia repair, inguinal RIGHT Social History Marital status: Spouse name: Justine Years of education: 14 Number of children: 4 Occupational History Occupation Employer Comment [employer] Social History Main Topics Smoking status: Never Smoker Smokeless tobacco: Never Used Alcohol use: Yes Comment: 12 pack beer on weekends Drug use: No Sexual activity: Yes Partners with: Female ACTIVE PROBLEM LIST Hydrocele Malignant Neoplasm of Spermatic Cord (Hcc) Unspecified Hemorrhoids Without Mention of Complication Diverticulosis of Colon (Without Mention of Hemorrhage) Benign Prostatic Hyperplasia Without Lower Urinary Tract Symptoms Night Sweats Left Cervical Radiculopathy Chronic Left-Sided Low Back Pain With Left-Sided Sciatica Current Outpatient Prescriptions: HYDROcodone-acetaminophen (NORCO) 5-325 mg per tablet Take 1 tablet by mouth every 6 hours as needed for up to 28 days. Disp: 28 tablet Rfl: 0 meloxicam (MOBIC) 15 mg tablet TAKE 1 TABLET BY MOUTH ONCE DAILY. WITH FOOD. Disp: 90 tablet Rfl: 0 Current Facility-Administered Medications: triamcinolone acetonide 40 mg injection (KENALOG 40) 40 mg INTRA-ARTICULAR ONCE M Rose Marie (Pa-C) Peacock bupivacaine 0.5 % 10 mg injection (MARCAINE MDV) 2 mL INTRA- ARTICULAR ONCE M Rose Marie (Pa-C) Ayush There are no preventive care reminders to display for this patient. EXAM: BP 112/74 Pulse 80 Temp 36.5 ?C (97.7 ?F) (Tympanic) Resp 16 Wt 92.1 kg (203 lb) BMI 27.15 kg/m? Pleasant adult male in no acute distress. Alert and oriented all spheres. Normal affect and cognition. Speech normal. No deficits to learning or comprehension. Skin warm, dry, pink to lips and nailbeds. Normal turgor. Respirations regular and unlabored. MSK- Neck ROM intact slightly limited to pain with left lateral motion. Tender to palpation along right acromion and anterior joint line. Right shoulder almost completely inhibited in ROM due to pain. Able to move approximately 10 degrees in flexion/extension. Approximately 5 degrees in abduction and unwilling to adduct across body due to pain. Distal pulses and sensation to light touch intact. Extrem: no clubbing, cyanosis, edema. Extremities are warm and pink with prompt capillary refill <2s bilaterally. ASSESSMENT/PLAN: 1. Disorder of ligament of right shoulder - ICD9: 728.4, ICD10: M24.211 - Continue to wear sling with wrist supported as needed for comfort - Encouraged right should exercises and movements to prevent frozen shoulder adhesion - MRI SHOULDER WO IVCON RT - CONSULT TO ORTHOPAEDICS - Too early to refill Saxon: call when rx is out. - Work slip x 2 weeks. ROMERO Spears PA-C 08/08/2017 3:50 PM Addendum Continue sling as needed. See sheet of exercises for shoulder stretches. Gentle ROM exercises: pendulum. Others as able. Referring Provider: SELF [[id number]] Allergies As of Date: 08/08/2017 Noted Allergy Reaction ZOSTRIX (CAPSAICIN) 06/04/2005 5 - Intolerance Comments: causes severe buring of skin Date Reviewed: 08/08/2017 Reviewed by: Darlyn Jay LPN - Fully Assessed Reason for Visit: Follow-up Shoulder Pain [1214] Cmt: right shoulder no injury that he is aware of. No pain unless moved. work note [Other] Cmt: Is to return to work tomorrow and feels he is unable to return Reason For Visit History Recorded Visit Diagnosis:Disorder of ligament of right shoulder [M24.211] Order(s):MRI SHOULDER WO IVCON RT [[id number]] Order #: [id number] FUTURE CONSULT TO ORTHOPAEDICS [9026] Order #: [id number]: 1 Prescriptions as of 08/08/2017 Sig: HYDROCODONE 5 MG-ACETAMINOPHE* Take 1 tablet by mouth every * MELOXICAM 15 MG TABLET TAKE 1 TABLET BY MOUTH ONCE D* Problem List As Of Date 08/08/2017 Noted Resolved HYDROCELE [603] INVALID FOR* Medial epicondylitis of elbow [M77.00] INVALID FOR*12/02/2016 Pain in joint, site unspecified [M25.50] INVALID FOR*12/02/2016 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 HEMORRHOIDS NOS [K64.9] More... DIVERTICULOSIS OF COLON W/O BLEED [K57.30] More... Benign prostatic hyperplasia without lower urin*INVALID FOR* Right groin pain [R10.31] INVALID FOR*12/02/2016 Night sweats [R61] INVALID FOR* More... Shoulder pain [M25.519] INVALID FOR*12/02/2016 More... Left cervical radiculopathy [M54.12] INVALID FOR* Muscle spasm of left shoulder area [M62.838] INVALID FOR*12/02/2016 Personal history of colonic polyps [Z86.010] INVALID FOR*06/19/2015 Chronic left-sided low back pain with left-side*INVALID FOR* Other instructions from your clinician: Continue sling as needed. See sheet of exercises for shoulder stretches. Gentle ROM exercises: pendulum. Others as able. Medications Discontinued During This Encounter cyclobenzaprine (FLEXERIL) 10 mg tab* 30 t* 0 04/02/2016 08/08/2017 Route: ORAL Sig: Take 1 tablet by mouth three times daily as needed. Disc: Reason for discontinue is not on file. Letter Text [facility] [address], [place] [address] Juma Blanc [address] [place] [address] Clinic #: [id number] 08/08/2017 To Whom it may concern, Juma Blanc was examined here for an acute medical condition. Please excuse him from work missed continued for the next 2 weeks. He is being evaluated by a specialist. Thank you, Milvia Peacock PA-C Encounter Status:Closed by Lauren PEACOCK PA-C on 08/08/17 XR SHOULDER 2V Observed: 08/02/2017 Status: F Source: [place] [facility] AP/TRUE AP RT 11:08 AM [facility] REPOSITORY * * *Final Report* * * DATE OF EXAM: Aug 02 2017 11:08AM WRX [id number] - XR SHOULDER 2V AP/TRUE AP RT / PROCEDURE REASON: Pain in right shoulder * * * * Physician Interpretation * * * * HISTORY: 62-YEAR-OLD MALE WITH Pain in right shoulder . pt states pain started yesterday, very inflammed not able to move arm much at all. has a very tender point right on the shoulder joint. no inj TECHNIQUE: XR SHOULDER 2V AP/TRUE AP RT Laterality: RIGHT Number of different views (projections): 2 COMPARISON: None RESULT: Mild asymmetric narrowing the glenohumeral joint. Small subchondral cysts and inferior glenoid. Acromiohumeral interval is maintained. Degenerative changes of acromioclavicular joint with small bursal none bursal sided osteophytes. Cystic changes at the acromio clavicular joint with sclerosis. Sclerosis about the greater tuberosity. This finding can be seen with tendinosis. No fracture or dislocation. IMPRESSION: MILD DEGENERATIVE CHANGES OF THE GLENOHUMERAL JOINT AND MODERATE DEGENERATIVE CHANGES OF ACROMIOCLAVICULAR JOINT. Staff Accountant: PSCB Transcribe Date/Time: Aug 02 2017 12:38P Dictated by : TAVIA HAMILTON MD This examination was interpreted and the report reviewed and electronically signed by: TAVIA HAMILTON MD on Aug 02 2017 12:40PM EST [id number] PROGRESS Observed: 08/02/2017 Status: COMPLETED Source: [place] [facility] 10:[address] [facility] REPOSITORY HNO ID: [id number] Author: Monika HendersonRtShawna La Service: (none) Author Type: Change Room Attendant Type: Progress Notes Filed: 08/02/2017 11:07 AM Note Text: Radiology Service Progress Note PATIENT NAME: Juma Blanc DATE OF SERVICE: August 02, 2017 TIME: 10:57 AM PATIENT IDENTITY VERIFICATION COMPLETED USING TWO (2) METHODS: Patient confirmed name verbally and Date of . PATIENT GENDER DATA: Male PATIENT RELEVANT IMPLANT DATA REVIEWED: Not Applicable RADIOLOGY DEPARTMENT: General X-ray: Exam(s) Completed: Upper Extremity X-Ray(s): Shoulder, AP / TRUE AP right : PERIPHERAL IV DATA: Not applicable SIGNED BY: RT Aidee August 02, 2017 10:57 AM PROGRESS Observed: 08/02/2017 Status: COMPLETED Source: [place] [facility] 10:[address] [facility] REPOSITORY HNO ID: [id number] Author: Lauren Peacock Service: (none) Author Type: Physician Tree Surgeon Helper Type: Progress Notes Filed: 08/02/2017 5:05 PM Note Text: 62 year old male with c/o right shoulder pain first noted Tuesday night. Got worse Tuesday at work. Difficulty reaching overhead. Had to pul and handle at shoulder height. Left work early. No sleep last night due to pain. Chilling. Woke hourly. Took some Advil 2 this morning, 4 yesterday without relief. Tried ice last night. Can't reach overhead. 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 Hx lower back pain treated with meloxicam. Also c/o intermittent twinges of pain in midsternal chest. Had one waiting for me after xray. Momentary, a few seconds. Mostly in last 6 months. Maybe 10 times. No associated SOB, sweating, weakness, radiating pain, heart burn, nausea associated. Nothing seems to bring pain on, more random. FH for heart disease in both parents. Started taking ASA 81mg daily due to concern over sx. HISTORIES FAMILY HISTORY Problem Relation Age of Onset - None Mother - Heart Father stent PAST MEDICAL HISTORY Diagnosis Date - Diverticulosis of colon (without mention of hemorrhage) Diverticulosis - Heartburn - Hydrocele - Internal hemorrhoids with other complication - Other chronic sinusitis - Unspecified hemorrhoids without mention of complication Hemorrhoids PAST SURGICAL HISTORY Procedure Laterality Date - COLONOSCOP W/ OR W/O [facility] SPEC 06/06/2003 Colonoscopy - COLONOSCOP W/ OR W/O [facility] SPEC 09/29/09 - COLONOSCOP W/ OR W/O [facility] SPEC 06/19/2015 Colonoscopy - FIX FLEX TENDON,FING/HAND,SECOND,EA right - HEMORRHOIDECTOMY, EXTNL; COMP - PAST SURGICAL HISTORY OF partial amputation tip right middle toe - PAST SURGICAL HISTORY OF 08/2005 hydrocele left testicle removed also - REPAIR ING HERNIA,5+Y/O,REDUCIBL Hernia repair, inguinal RIGHT Social History Marital status: Spouse name: Justine Years of education: 14 Number of children: 4 Occupational History Occupation Employer Comment [employer] Social History Main Topics Smoking status: Never Smoker Smokeless tobacco: Never Used Alcohol use: Yes Comment: 12 pack beer on weekends Drug use: No Sexual activity: Yes Partners with: Female ACTIVE PROBLEM LIST Hydrocele Malignant Neoplasm of Spermatic Cord (Hcc) Unspecified Hemorrhoids Without Mention of Complication Diverticulosis of Colon (Without Mention of Hemorrhage) Benign Prostatic Hyperplasia Without Lower Urinary Tract Symptoms Night Sweats Left Cervical Radiculopathy Chronic Left-Sided Low Back Pain With Left-Sided Sciatica Current Outpatient Prescriptions: meloxicam (MOBIC) 15 mg tablet TAKE 1 TABLET BY MOUTH ONCE DAILY. WITH FOOD. Disp: 90 tablet Rfl: 0 cyclobenzaprine (FLEXERIL) 10 mg tablet Take 1 tablet by mouth three times daily as needed. Disp: 30 tablet Rfl: 0 No current facility-administered medications for this visit. There are no preventive care reminders to display for this patient. EXAM: BP 110/78 (BP Site: Left Arm, BP Position: Sitting, BP Cuff Size: Large Adult) Pulse 68 Temp 37.2 ?C (99 ?F) (Tympanic) Resp 18 Wt 93.9 kg (207 lb) BMI 27.69 kg/m? Pleasant adult man in no acute distress. Alert and oriented all spheres. Normal affect and cognition. Speech normal. No deficits to learning or comprehension. Skin warm, dry, pink to lips and nailbeds. Normal turgor. Respirations regular and unlabored. HEENT WNL. TM's clear. Nose and oropharynx free from injection or lesion. No cervical lymph nodes. Thyroid non-tender, no masses Chest CTA. HRRR without murmur or gallop. Chest wall mildly tender with muscular TTP right costochondral and right midclavicualr line 5th ICS which he identifies as source of pain. Extrem: no clubbing, cyanosis, edema. Extremities are warm and pink with prompt capillary refill. Guarding right shoulder. Tender on palpation over ACJ. Non-tender humeral head. Some trigger point tenderness anterior and posterior shoulder muscles. Very limited range of motion: 10-20 degrees in any direction. States too painful with circumduction at 20 degrees. Unable to due any specialized testing. Resisted passive ROM. EKG: NSR, no ischemic changes pending visual specialist XR: mild AC arthritis pending radiologist ASSESSMENT/PLAN: 1. Acute pain of right shoulder - ICD9: 719.41, ICD10: M25.511 (primary diagnosis) See below - XR SHOULDER [id number] AP/TRUE AP RT - HYDROCODONE 5 MG-ACETAMINOPHEN 325 MG TABLET 2. Chest pain, unspecified type - ICD9: 786.50, ICD10: R07.9 Low suspicion from description and exam for cardiac: momentary, sharp, absence of anginal equivalents. Monitor sx and report is increasing or prolonged. Review prtocol for sustained chest pain. - ECG COMPLETE W INTERPRETATION 3. Acromioclavicular (AC) joint injury, right, initial encounter - ICD9: 959.2, ICD10: S49.91XA - HYDROCODONE 5 MG-ACETAMINOPHEN 325 MG TABLET 4. Rotator cuff tendonitis, right - ICD9: 726.10, ICD10: M75.81 Discussed steroid injection risks and benefits as well as options for PT or orthopedic referral. Wishes to proceed with steroid injection, site, ID, allergies verified. Injected Kenalog 40mg/1ml/ mixed with Lidocaine 1% 2ml and Bupivacaine 0.5% 2ml into right shoulder posterior sub acromial approach. Had marked improvement in ROM and pain within a few minutes. - rest joint 5 days. work slip written - HYDROCODONE 5 MG-ACETAMINOPHEN 325 MG TABLET Narcotic use cautions reviewed. Will not exceed 1 week dose. Lauren Peacock PA-C CNOV Observed: 08/02/2017 Status: COMPLETED Source: [place] 9:[address] [facility] REPOSITORY Office Visit (FAMPWS) JUMA BLANC ([id number]) 1955 M Date Time Provider Department 08/02/17 9:40 AM Lauren PEACOCK) FAMPWS During your visit today, we recorded the following information about you: Temperature Pulse Respiration Blood pressure 99 degrees 68/minute 18/minute 110/78 Weight 93.9 kg Lauren Peacock PA-C 08/02/2017 5:05 PM Signed 62 year old male with c/o right shoulder pain first noted Tuesday night. Got worse Tuesday at work. Difficulty reaching overhead. Had to pul and handle at shoulder height. Left work early. No sleep last night due to pain. Chilling. Woke hourly. Took some Advil 2 this morning, 4 yesterday without relief. Tried ice last night. Can't reach overhead. 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 Hx lower back pain treated with meloxicam. Also c/o intermittent twinges of pain in midsternal chest. Had one waiting for me after xray. Momentary, a few seconds. Mostly in last 6 months. Maybe 10 times. No associated SOB, sweating, weakness, radiating pain, heart burn, nausea associated. Nothing seems to bring pain on, more random. FH for heart disease in both parents. Started taking ASA 81mg daily due to concern over sx. HISTORIES FAMILY HISTORY Problem Relation Age of Onset - None Mother - Heart Father stent PAST MEDICAL HISTORY Diagnosis Date - Diverticulosis of colon (without mention of hemorrhage) Diverticulosis - Heartburn - Hydrocele - Internal hemorrhoids with other complication - Other chronic sinusitis - Unspecified hemorrhoids without mention of complication Hemorrhoids PAST SURGICAL HISTORY Procedure Laterality Date - COLONOSCOP W/ OR W/O [facility] SPEC 06/06/2003 Colonoscopy - COLONOSCOP W/ OR W/O [facility] SPEC 09/29/09 - COLONOSCOP W/ OR W/O [facility] SPEC 06/19/2015 Colonoscopy - FIX FLEX TENDON,FING/HAND,SECOND,EA right - HEMORRHOIDECTOMY, EXTNL; COMP - PAST SURGICAL HISTORY OF partial amputation tip right middle toe - PAST SURGICAL HISTORY OF 08/2005 hydrocele left testicle removed also - REPAIR ING HERNIA,5+Y/O,REDUCIBL Hernia repair, inguinal RIGHT Social History Marital status: Spouse name: Justine Years of education: 14 Number of children: 4 Occupational History Occupation Employer Comment [employer] Social History Main Topics Smoking status: Never Smoker Smokeless tobacco: Never Used Alcohol use: Yes Comment: 12 pack beer on weekends Drug use: No Sexual activity: Yes Partners with: Female ACTIVE PROBLEM LIST Hydrocele Malignant Neoplasm of Spermatic Cord (Hcc) Unspecified Hemorrhoids Without Mention of Complication Diverticulosis of Colon (Without Mention of Hemorrhage) Benign Prostatic Hyperplasia Without Lower Urinary Tract Symptoms Night Sweats Left Cervical Radiculopathy Chronic Left-Sided Low Back Pain With Left-Sided Sciatica Current Outpatient Prescriptions: meloxicam (MOBIC) 15 mg tablet TAKE 1 TABLET BY MOUTH ONCE DAILY. WITH FOOD. Disp: 90 tablet Rfl: 0 cyclobenzaprine (FLEXERIL) 10 mg tablet Take 1 tablet by mouth three times daily as needed. Disp: 30 tablet Rfl: 0 No current facility-administered medications for this visit. There are no preventive care reminders to display for this patient. EXAM: BP 110/78 (BP Site: Left Arm, BP Position: Sitting, BP Cuff Size: Large Adult) Pulse 68 Temp 37.2 ?C (99 ?F) (Tympanic) Resp 18 Wt 93.9 kg (207 lb) BMI 27.69 kg/m? Pleasant adult man in no acute distress. Alert and oriented all spheres. Normal affect and cognition. Speech normal. No deficits to learning or comprehension. Skin warm, dry, pink to lips and nailbeds. Normal turgor. Respirations regular and unlabored. HEENT WNL. TM's clear. Nose and oropharynx free from injection or lesion. No cervical lymph nodes. Thyroid non-tender, no masses Chest CTA. HRRR without murmur or gallop. Chest wall mildly tender with muscular TTP right costochondral and right midclavicualr line 5th ICS which he identifies as source of pain. Extrem: no clubbing, cyanosis, edema. Extremities are warm and pink with prompt capillary refill. Guarding right shoulder. Tender on palpation over ACJ. Non-tender humeral head. Some trigger point tenderness anterior and posterior shoulder muscles. Very limited range of motion: 10-20 degrees in any direction. States too painful with circumduction at 20 degrees. Unable to due any specialized testing. Resisted passive ROM. EKG: NSR, no ischemic changes pending visual specialist XR: mild AC arthritis pending radiologist ASSESSMENT/PLAN: 1. Acute pain of right shoulder - ICD9: 719.41, ICD10: M25.511 (primary diagnosis) See below - XR SHOULDER [id number] AP/TRUE AP RT - HYDROCODONE 5 MG-ACETAMINOPHEN 325 MG TABLET 2. Chest pain, unspecified type - ICD9: 786.50, ICD10: R07.9 Low suspicion from description and exam for cardiac: momentary, sharp, absence of anginal equivalents. Monitor sx and report is increasing or prolonged. Review prtocol for sustained chest pain. - ECG COMPLETE W INTERPRETATION 3. Acromioclavicular (AC) joint injury, right, initial encounter - ICD9: 959.2, ICD10: S49.91XA - HYDROCODONE 5 MG-ACETAMINOPHEN 325 MG TABLET 4. Rotator cuff tendonitis, right - ICD9: 726.10, ICD10: M75.81 Discussed steroid injection risks and benefits as well as options for PT or orthopedic referral. Wishes to proceed with steroid injection, site, ID, allergies verified. Injected Kenalog 40mg/1ml/ mixed with Lidocaine 1% 2ml and Bupivacaine 0.5% 2ml into right shoulder posterior sub acromial approach. Had marked improvement in ROM and pain within a few minutes. - rest joint 5 days. work slip written - HYDROCODONE 5 MG-ACETAMINOPHEN 325 MG TABLET Narcotic use cautions reviewed. Will not exceed 1 week dose. ROMERO Spears PA-C 08/02/2017 12:27 PM Addendum Rest the joint over then next five days as much as possible, then start gradually increasing activity and stretching as discussed. The joint injection includes a long acting numbing agent. This will wear off over about 12 hours and pain may return. Over then next 2- 3 days it should gradually get better as the cortisone effects take over. Hold NSAIDS like Advil or Meloxicam. You may use Tylenol per bottle instructions. . Chest pain: When to seek help ? If you have chest pain that is new, severe, prolonged, or if chest pain causes concern, call 911 immediately. The emergency medical services (EMS) personnel in your community are prepared to respond rapidly, and will take you to the nearest hospital. For a patient having a heart attack, every minute is important. Remember, the faster you get to a hospital, the sooner you can receive treatment. Do not drive yourself to the hospital and do not ask someone else to drive you. Calling 911 is safer than driving for two reasons: From the moment EMS personnel arrive, they can begin evaluating and treating chest pain. If you drive to the hospital, treatment cannot begin until you arrive in the emergency department. If a dangerous complication of a heart attack (eg, a serious irregular heart rhythm) occurs on the way to the hospital, EMS personnel are trained to treat the problem immediately. While waiting for the squad, rest sitting or laying down and try to remain calm. If you are not allergic: chew 4 Baby Aspirin or 2 adult aspirin. Aspirin has been shown to reduce incidence and severity with heart attacks. Lauren Peacock PA-C 08/08/2017 8:13 AM Signed Addended by: Lauren PEACOCK PA-C on: 08/08/2017 08:13 AM Modules accepted: Orders Lauren Peacock PA-C 11/17/2017 11:21 AM Signed Addended by: Lauren PEACOCK PA-C on: 11/17/2017 11:21 AM Modules accepted: Orders Referring Provider: SELF [[id number]] Allergies As of Date: 08/02/2017 Noted Allergy Reaction No Active Allergies DELETED: ZOSTRIX (CAPSAICIN) 06/04/2005 5 - Intolerance Comments: causes severe buring of skin Date Reviewed: 08/02/2017 Reviewed by: Erick Ba LPN - Fully Assessed Reason for Visit: right shoulder pain [Other] Primary Visit Diagnosis:Acute pain of right shoulder [M25.511] Other Visit Diagnoses:Chest pain, unspecified type [R07.9] Acromioclavicular (AC) joint injury, right, initial encounter [S49.91XA] Rotator cuff tendonitis, right [M75.81] Order(s):XR SHOULDER [id number] AP/TRUE AP RT [8770034] Order #: [id number] FUTURE ECG COMPLETE W INTERPRETATION [ECG01] Order #: [id number] FUTURE [] HYDROcodone-acetaminophen (NORCO) 5-325 mg per tabletTake 1 tablet by mouth every 6 hours as needed for up to 28 days.Disp: 28 tabletRfl: 0 [] triamcinolone acetonide 40 mg injection (KENALOG 40)Disp: Rfl: [] bupivacaine 0.5 % 10 mg injection (MARCAINE MDV)Disp: Rfl: [] bupivacaine (PF) 0.25 % (2.5 mg/mL) 5 mg, lidocaine (PF) 10 mg/mL (1 %) 20 mg, triamcinolone acetonide 40 mgDisp: Rfl: Prescriptions as of 08/02/2017 Sig: X MELOXICAM 15 MG TABLET TAKE 1 TABLET BY MOUTH ONCE D* HYDROCODONE 5 MG-ACETAMINOPHE* Take 1 tablet by mouth every * X CYCLOBENZAPRINE 10 MG TABLET Take 1 tablet by mouth three * Problem List As Of Date 08/02/2017 Noted Resolved HYDROCELE [603] INVALID FOR* Medial epicondylitis of elbow [M77.00] INVALID FOR*12/02/2016 Pain in joint, site unspecified [M25.50] INVALID FOR*12/02/2016 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 HEMORRHOIDS NOS [K64.9] More... DIVERTICULOSIS OF COLON W/O BLEED [K57.30] More... Benign prostatic hyperplasia without lower urin*INVALID FOR* Right groin pain [R10.31] INVALID FOR*12/02/2016 Night sweats [R61] INVALID FOR* More... Shoulder pain [M25.519] INVALID FOR*12/02/2016 More... Left cervical radiculopathy [M54.12] INVALID FOR* Muscle spasm of left shoulder area [M62.838] INVALID FOR*12/02/2016 Personal history of colonic polyps [Z86.010] INVALID FOR*06/19/2015 Chronic left-sided low back pain with left-side*INVALID FOR* Other instructions from your clinician: Rest the joint over then next five days as much as possible, then start gradually increasing activity and stretching as discussed. The joint injection includes a long acting numbing agent. This will wear off over about 12 hours and pain may return. Over then next 2-3 days it should gradually get better as the cortisone effects take over. Hold NSAIDS like Advil or Meloxicam. You may use Tylenol per bottle instructions. . Chest pain: When to seek help ? If you have chest pain that is new, severe, prolonged, or if chest pain causes concern, call 911 immediately. The emergency medical services (EMS) personnel in your community are prepared to respond rapidly, and will take you to the nearest hospital. For a patient having a heart attack, every minute is important. Remember, the faster you get to a hospital, the sooner you can receive treatment. Do not drive yourself to the hospital and do not ask someone else to drive you. Calling 911 is safer than driving for two reasons: From the moment EMS personnel arrive, they can begin evaluating and treating chest pain. If you drive to the hospital, treatment cannot begin until you arrive in the emergency department. If a dangerous complication of a heart attack (eg, a serious irregular heart rhythm) occurs on the way to the hospital, EMS personnel are trained to treat the problem immediately. While waiting for the squad, rest sitting or laying down and try to remain calm. If you are not allergic: chew 4 Baby Aspirin or 2 adult aspirin. Aspirin has been shown to reduce incidence and severity with heart attacks. Prescriptions ordered this encounter Disp Refills Start End HYDROCODONE 5 MG-ACETAMINOPHEN 325 M* 28 t* 0 08/02/2017 08/02/2017 Class: Print RX Route: ORAL Sig: Take 1 tablet by mouth every 6 hours as needed for up to 28 days. HYDROCODONE 5 MG-ACETAMINOPHEN 325 M* 28 t* 0 08/02/2017 08/30/2017 Class: Print RX Route: ORAL Sig: Take 1 tablet by mouth every 6 hours as needed for up to 28 days. TRIAMCINOLONE ACETONIDE 40 MG/ML PAOLA* 08/02/2017 08/08/2017 Route: IAtc BUPIVACAINE 0.5 % (5 MG/ML) INJECTIO* 08/02/2017 08/08/2017 Route: IAtc TRIAMCINOLONE ACETONIDE 40 MG/ML PAOLA* 08/08/2017 08/08/2017 Route: IAtc BUPIVACAINE 0.5 % (5 MG/ML) INJECTIO* 08/08/2017 08/08/2017 Route: IAtc [facility]AYNE INJECTION BUILDER 11/17/2017 11/17/2017 Class: Suppress Questions Route: IAtc Medications Discontinued During This Encounter HYDROcodone-acetaminophen (NORCO) 5-* 28 t* 0 08/02/2017 08/02/2017 Class: Print RX Route: ORAL Sig: Take 1 tablet by mouth every 6 hours as needed for up to 28 days. Disc: Reason for discontinue is not on file. triamcinolone acetonide 40 mg inject* 08/02/2017 08/08/2017 Route: INTRA-ARTICULAR Sig: Disc: Reason for discontinue is not on file. bupivacaine 0.5 % 10 mg injection (M* 08/02/2017 08/08/2017 Route: INTRA-ARTICULAR Sig: Disc: Reason for discontinue is not on file. Letter Text [facility] [place], [place] [address] Juma Blanc [address] [id number] Clinic #: [id number] 08/02/2017 To Whom it may concern, Juma Blanc was examined here for an acute medical condition. Please excuse him from work missed today. He may return with restrictions for limited use of the right arm over the next 2 weeks: no lifting above waist, no lifting more than 10 lbs. . Thank you, Milvia Peacock PA-C Letter Text [facility] [place], [place] [address] Juma Blanc [address] [address] Clinic #: [id number] 08/02/2017 To Whom it may concern, Juma Blanc was examined here for an acute medical condition. Please excuse him from work missed from today to 08/09/17. Return to work conditional on progress. Thank you, Milvia Peacock PA-C Encounter Status:Closed by Lauren PEACOCK PA-C on 08/02/17 ALLERGIES ALLERGIES DATE TYPE / CODE NAME / CODE REACTION SEVERITY SOURCE 07/29/2014 Drug No Known Unknown [place] Allergy/416 Allergies/[id number] [facility] 938602(SNOM 0388(RXNORM) [facility] ED CT) Repository 06/04/2005 DRUG CAPSAICIN INTOLERANCE [facility] INGREDI/[address] [place] 014743(SNOM Repository ED CT) Drug NO KNOWN [facility] Class/23292 ALLERGIES [address] [place] 1003(SNOMED Repository CT) ENCOUNTERS ENCOUNTERS ADMIT/DISCHARGE ACCOUNT ADMITTING ENCOUNTER LOCATION SOURCE NUMBER CLASS 04/12/2018 [id number] [facility] ing:RAD Repository 03/31/2018/03/31/19 [id number] Ambulatory [address] Repository 03/28/2018/03/28/19 [id number] Ambulatory [address] Repository 03/28/2018/03/28/19 [id number] Ambulatory [address] Repository 03/28/2018 [id number] Ambulatory [facility] Repository 03/28/2018/03/29/19 [id number] Ambulatory [address] Repository 03/07/2018/12/19 [id number] Ambulatory [facility] [address] [place] Repository 10/31/2017/11/02/19 [id number] Ambulatory [facility] [address] [place] Repository 10/27/2017/10/29/19 [id number] Ambulatory [facility] [address] [place] Repository 10/27/2017/10/28/19 [id number] Ambulatory [facility] [address] [place] Repository 10/17/2017/10/25/19 [id number] Ambulatory [facility] [address] [place] Repository 10/10/2017/10/12/19 [id number] Ambulatory [facility] [address] [place] Repository 10/03/2017/10/06/19 [id number] Ambulatory [facility] [address] [place] Repository 09/26/2017/09/29/19 [id number] Ambulatory [facility] [address] [place] Repository 09/19/2017/09/23/19 [id number] Ambulatory [facility] [address] [place] Repository 09/14/2017/09/15/19 [id number] Ambulatory [facility] [address] [place] Repository 09/14/2017/09/17/19 [id number] Ambulatory [facility] [address] [place] Repository 09/14/2017/09/15/19 [id number] Ambulatory [facility] [address] [place] Repository 09/05/2017/09/07/19 [id number] Ambulatory [facility] [address] [place] Repository 08/31/2017/09/01/19 [id number] Ambulatory [facility] [address] [place] Repository 08/31/2017 [id number] [facility] [address] [place] Repository 08/31/2017/09/03/19 [id number] Ambulatory [facility] [address] [place] Repository 08/22/2017/08/23/19 [id number] Ambulatory [facility] [address] [place] Repository 08/22/2017/08/30/19 [id number] Ambulatory [facility] [address] [place] Repository 08/22/2017/08/24/19 [id number] Ambulatory [facility] [address] [place] Repository 08/19/2017/08/20/19 [id number] Ambulatory [facility] [address] [place] Repository 08/08/2017/08/10/19 [id number] Ambulatory [facility] [address] [place] Repository 08/02/2017/08/03/19 [id number] Ambulatory [facility] [address] [place] Repository 08/02/2017/11/19/19 [id number] Ambulatory [address] Repository PAYERS PAYERS ENCOUNTER GUARANTOR PAYER SUBSCRIBER SOURCE 04/12/2018 JUMA Byrd Primary JUMA Campos [id number] Insurance:ANTHEMPolic VEIGLDOB: [facility] Number: [id number] [id number] Repository [address]Xel: [phone] [address] Date:[id number] [phone] () [address], [place] [address]ZD: 04/12/2018 Secondary NOT GIVENELIAN Campos Insurance:SELF PAY [facility] Number: Effective Repository Date:2018-04-07
== END ==
PROVIDERS: Family Provider Family Medicine; PCP Family Medicine; Referring Provider Family Medicine; Visit Provider Family Medicine
DX: M16.11 Unilateral primary osteoarthritis, right hip (principal)
CPT/HCPCS: 20610; 77002; Q9967

== ENCOUNTER → 2018-07-07 | Outpatient (CLI) | payer BC, SELFPAY ==
--- NOTE | 2018-07-07 07:00 | RAD_ITS ---
PROCEDURE: Fluoroscopic guided Hip Injection DATE: July 07, 2018 INDICATION: Male, 63 years old. Right hip pain. PHYSICIAN: Julius Cadet M.D. MEDICATIONS: 40 mg of Kenalog and 4 cc of 1% lidocaine. 2% Lidocaine administered subcutaneously for local anesthesia. ACCESS SITE: Right hip. NEEDLE: 22-gauge spinal needle. FLUOROSCOPY TIME (if supplied): (0:46) minutes/seconds FINDINGS: The risks, benefits, and alternatives to the procedure were explained to the patient. The specific risks of bleeding, infection, and neurovascular injury were detailed and accepted. Witnessed informed consent was obtained. A 22-gauge spinal needle was positioned under radiographic fluoroscopic localization. Approximately 2 cc of Isovue-300 instilled for localization purposes. Medication was then injected. The patient tolerated the procedure well without any immediate complications. RAD/Inj/Asp Sudhakar Jt Should/Hip/Knee IMPRESSION: 1. Successful fluoroscopic guided hip injection. Electronically Signed: Julius Cadet, at 13:52 EDT , Service support ,
== END | disposition home or self-care (01) ==
LOC: RAD 09:19
PROVIDERS: Family Provider Family Medicine; PCP Family Medicine; Referring Provider Family Medicine; Visit Provider Family Medicine
DX: M16.11 Unilateral primary osteoarthritis, right hip (principal)
CPT/HCPCS: 20610; 77002; Q9967

== ENCOUNTER → 2019-12-04 08:48 | Outpatient (CLI) | payer OTHER, SELFPAY ==
--- NOTE | 2019-12-04 09:00 | RAD_ITS ---
PROCEDURE: Fluoroscopic guided Hip Injection DATE: 12/04/2019. INDICATION: Male, 64 years old. Right hip pain. PHYSICIAN: Julius Cadet M.D. MEDICATIONS: 60 mg of KENALOG and 4 cc of 1% LIDOCAINE. 2% lidocaine administered subcutaneously for local anesthesia. ACCESS SITE: Right hip. NEEDLE: 22-gauge spinal needle. FLUOROSCOPY TIME (if supplied): (0:37) minutes/seconds FINDINGS: The risks, benefits, and alternatives to the procedure were explained to the patient. The specific risks of bleeding, infection, and neurovascular injury were detailed and accepted. Witnessed informed consent was obtained. A 22-gauge spinal needle was positioned under radiograph fluoroscopic localization. Approximately 2 cc of ISOVUE-300 instilled for localization purposes. Medication was then injected. The patient tolerated the procedure well without any immediate complications. RAD/Inj/Asp Sudhakar Jt Should/Hip/Knee IMPRESSION: 1. Successful fluoroscopic guided hip injection. Electronically Signed: Julius Cadet, at 10:01 EDT , Service support ,
== END ==
PROVIDERS: PCP Family Medicine; Referring Provider Family Medicine; Visit Provider Family Medicine
DX: M16.11 Unilateral primary osteoarthritis, right hip (principal)
CPT/HCPCS: 20610; 77002; Q9967

== ENCOUNTER → 2020-05-21 09:12 | Outpatient (CLI) | payer OTHER, SELFPAY ==
--- NOTE | 2020-05-21 09:16 | RAD_ITS ---
PROCEDURE: Fluoroscopic guided Hip Injection DATE: 05/21/2020. INDICATION: Male, 65 years old. Right hip pain. PHYSICIAN: Julius Cadet M.D. MEDICATIONS: 40 mg of KENALOG and 4 cc of 1% LIDOCAINE. 2% lidocaine administered subcutaneously for local anesthesia. ACCESS SITE: Right hip. NEEDLE: 22-gauge spinal needle. FLUOROSCOPY TIME (if supplied): (0:30) minutes/seconds FINDINGS: The risks, benefits, and alternatives to the procedure were explained to the patient. The specific risks of bleeding, infection, and neurovascular injury were detailed and accepted. Witnessed informed consent was obtained. A 22-gauge spinal needle was positioned under radiographic fluoroscopic localization. Approximately 2 cc of ISOVUE-300 instilled for localization purposes. Medication was then injected. The patient tolerated the procedure well without any immediate complications. RAD/Inj/Asp Sudhakar Jt Should/Hip/Knee IMPRESSION: 1. Successful fluoroscopic guided hip injection. Electronically Signed: Julius Cadet MD at 10:27 EST , Service support ,
== END ==
PROVIDERS: PCP Family Medicine; Referring Provider Family Medicine; Visit Provider Family Medicine
DX: M16.11 Unilateral primary osteoarthritis, right hip (principal)
CPT/HCPCS: 20610; 77002